=== PATIENT | male | born 1940 | race Caucasian/White ===

== ENCOUNTER 2016-06-21 08:13 | Day surgery (SDC) | payer MEDICARE, BC ==
[~2016-06-21 08:13] MED LIST: DEXAMETHASONE SOD PHOSPHATE 10 MG/ML 1 ML VIAL IV ONE; HEPARIN SODIUM,PORCINE 5,000 UNIT/ML 1 ML VIAL SQ ONE; HYDROmorphone 1 MG/ML 1 ML SYRINGE IVP PRN; LACTATED RINGERS 1,000 ML IV SCH; LIDOCAINE 1% 20 ML VIAL (10MG/ML) FOR IV START INTRADERMA PRN; ceFAZolin 2 GM in SODIUM CHLORIDE 0.9% 100 ML IVPB ONE
[2016-06-21 09:05] VITALS: RESP 16; TEMP 96.9
[2016-06-21 09:27] LABS: Glucose,Whole Blood 125 mg/dL (75-99)
[2016-06-21] MEDS ORDERED: ONDANSETRON 4 MG/2 ML VIAL IVP ONE (09:28)
--- NOTE | 2016-06-21 09:37 | P.GSHP ---
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 She requires a Port-A-Cath because of poor IV access and ongoing chemotherapy. He has not had a previous Port-A-Cath before. Past Medical History Past Medical History: Cancer, Diabetes Mellitus, Hyperlipidemia, Hypertension Additional Past Medical History / Comment(s): DIAGNOSED WITH CA OF BASE OF TONGUE IN 2013, RECENT PET SCAN SHOWS CA IN LIVER. PROSTATE CA IN 2006. History of Any Multi-Drug Resistant Organisms: None Reported Past Surgical History: Orthopedic Surgery Additional Past Surgical History / Comment(s): LEFT ROTATOR CUFF. Past Anesthesia/Blood Transfusion Reactions: No Reported Reaction Past Psychological History: No Psychological Hx Reported Smoking Status: Former smoker Past Alcohol Use History: Daily Additional Past Alcohol Use History / Comment(s): QUIT SMOKING IN 2005, FOR 50 YRS, 1-2PPD. Past Drug Use History: None Reported - Past Family History Mother Family Medical History: Cancer Medications and Allergies Home Medications Medication Instructions Recorded Confirmed Type Lisinopril [Zestril] 20 mg PO QAM 12/01/13 06/21/16 History Tamsulosin [Flomax] 0.4 mg PO HS 12/01/13 06/21/16 History metFORMIN HCL 1,000 mg PO BID 12/01/13 06/21/16 History Melatonin 10 mg PO HS PRN 06/20/16 06/21/16 History Allergies Allergy/AdvReac Type Severity Reaction Status Date / Time No Known Allergies Allergy Verified 06/20/16 08:32 Surgical - Exam Vital Signs Temp Pulse Resp BP Pulse Ox 96.9 F L 73 16 184/80 99 06/21/16 09:04 06/21/16 09:04 06/21/16 09:04 06/21/16 09:04 06/21/16 09:04 Physical exam: General: Well-developed, well-nourished HEENT: Normocephalic, sclerae nonicteric Abdomen: Nontender, nondistended Extremities: No edema Neuro: Alert and oriented Results - Labs Abnormal Lab Results - Last 24 Hours (Table) 06/21/16 Range/Units 09:09 POC Glucose (mg/dL) 125 H (75-99) mg/dL Assessment and Plan (1) Tongue cancer Narrative/Plan: We'll proceed with Port-A-Cath placement at this time. Risks of bleeding, infection, pneumothorax, DVT, catheter malfunction were discussed. He understands and wishes to proceed. Status: Acute
[2016-06-21] MEDS ORDERED: PROPOFOL 10 MG/ML 20 ML VIAL IV ONE (10:07)
[2016-06-21] MEDS ORDERED: fentaNYL (PF) 50 MCG/ML 2 ML AMP ONE (10:07)
[2016-06-21] MEDS ORDERED: MIDAZOLAM 2 MG/2 ML VIAL ONE (10:07)
[2016-06-21] MEDS ORDERED: HEPARIN SODIUM,PORCINE 100 UNIT/ML 5 ML VIAL IV ONE ×2 (10:30)
[2016-06-21] MEDS ORDERED: LIDOCAINE (PF) 10 MG/ML 2 ML VIAL SQ ONE ×2 (10:32)
[2016-06-21] MEDS ORDERED: NALOXONE 0.4 MG/ML 1 ML VIAL IV PRN (10:58)
[2016-06-21] MEDS ORDERED: HYDROcodone/APAP 5-325MG 1 EACH TAB PO PRN (10:58)
--- NOTE | 2016-06-21 10:58 | P.PCN ---
Date of Procedure: 06/21/16 Procedure(s) Performed: PREOPERATIVE DIAGNOSIS: Tongue cancer POSTOPERATIVE DIAGNOSIS: Same PROCEDURE: Port-A-Cath placement SURGEON: Tabatha EBL: Minimal ANESTHESIA: Sedation COMPLICATIONS: None OPERATIVE PROCEDURE: Patient was brought and placed on the operative table in the supine position. The patient was sedated per anesthesia that time. The chest and neck were prepped and draped in usual sterile fashion. The ultrasound probe was used to identify the location of the right internal jugular vein. The skin was localized with lidocaine. The Seldinger needle was advanced into the IJ under ultrasound guidance. The wire was advanced through the needle under fluoroscopic guidance into the superior vena cava. A port pocket was created in the right infraclavicular location. The catheter was tunneled from the wire entrance site to the port pocket. The port was then connected to the catheter. The dilator introducer was threaded over the guidewire. The guidewire and dilator were then removed. The catheter was advanced through the introducer and introducer was then removed. The tip was seen to be in the right atrial junction. Port was flushed with both saline and a Hep-Lock solution. There was good flow both in and out of the port. The port was sutured in underlying tissues using 3-0 Vicryl sutures. The subcutaneous tissues were reapproximated using 3-0 Vicryl sutures and the skin at both locations using 4-0 Monocryl sutures. Steri-Strips and sterile dressings then applied. DISPOSITION: Stable to recovery room
[2016-06-21 11:23] VITALS: BP 179/82; PULSE 60
--- NOTE | 2016-06-21 11:29 | XR ---
EXAMINATION TYPE: XR chest 1V confirm line [facility] DATE OF EXAM: 06/21/2016 11:20 AM COMPARISON: Chest x-ray December 01, 2013 HISTORY: Port-A-Cath placement for throat cancer. TECHNIQUE: Single AP portable frontal upright view of the chest is obtained. FINDINGS: There is new right internal jugular Mediport catheter with tip in SVC. There is underlying emphysematous change felt present. Suspicious nodule lateral right upper lung is present correlates w ith recent PET/CT. No suspicious focal airspace opacity, pleural effusion, or pneumothorax is seen bi laterally. The cardiac silhouette size is within normal limits with atherosclerotic thoracic aorta. The osseous structures are intact. IMPRESSION: New right internal jugular Mediport catheter with tip in SVC. No evidence of complicatio n or pneumothorax after catheter placement.
--- NOTE | 2016-06-21 11:43 | FL ---
EXAMINATION TYPE: FL guided central line placemt DATE OF EXAM: 06/21/2016 11:26 AM COMPARISON: NONE HISTORY: Tongue cancer recurrence. TECHNIQUE: Fluoroscopy. FINDINGS: Fluoroscopic guidance was provided during Port-A-Cath insertion procedure performed by Dr. Mays. A total of 4 seconds of fluoroscopic time was utilized during the procedure and 1 spot intra operative image is acquired. Single image shows tip of catheter at level of SVC. IMPRESSION: As Above.
== END 2016-06-21 12:07 | disposition home or self-care (01) ==
LOC: OR 08:13
PROVIDERS: ATTEND Surgery
DX: Z45.2 Encounter for adjustment and management of vascular access device (principal); C01 Malignant neoplasm of base of tongue; I87.2 Venous insufficiency (chronic) (peripheral); Z92.21 Personal history of antineoplastic chemotherapy; E11.9 Type 2 diabetes mellitus without complications; E78.5 Hyperlipidemia, unspecified; I10 Essential (primary) hypertension; N40.0 Benign prostatic hyperplasia without lower urinary tract symptoms; Z85.46 Personal history of malignant neoplasm of prostate; Z79.84 Long term (current) use of oral hypoglycemic drugs; Z79.899 Other long term (current) drug therapy; Z87.891 Personal history of nicotine dependence
CPT/HCPCS: 77001; 36561; C1788; J2250; J2001; J1644; J1642; J1100; J0690; J2405; J3010; J2704; 99152; 99153

== ENCOUNTER 2016-07-17 05:57 | Inpatient (IN) | payer MEDICARE, BC ==
[2016-07-17] MEDS ORDERED: SODIUM CHLORIDE 0.9% 500 ML IV STA (06:00)
[2016-07-17] MEDS ORDERED: SODIUM CHLORIDE 0.9% 1,000 ML IV STA (06:00)
--- NOTE | 2016-07-17 06:01 | ED ---
General Adult HPI - General Source: RN notes reviewed, old records reviewed <Aniceto Tirado - Last Filed: 07/17/16 06:08> <Mona Winn - Last Filed: 07/17/16 09:15> - General Stated complaint: Syncope Time Seen by Provider: 07/17/16 06:00 - History of Present Illness Initial comments: This is a 76-year-old male to the emergency room, patient's pain by EMS for syncopal event patient patient had significant both for one the bathroom this morning. 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 At this time patient complains of mild diaphoresis and weakness. Patient has no chest pain no shortness of breath no headache no abdominal pain. Patient states he felt really weak when he went to the bathroom today, he got into the bathroom and felt so weak lightheaded and dizzy that he had this himself on the ground. Patient denies head trauma denies any other traumatic injury, denies any complaints of chest pain shortness of breath or headache prior to going to the ground, patient denies losing consciousness (Aniceto Tirado) - Related Data Home Medications Medication Instructions Recorded Confirmed Tamsulosin [Flomax] 0.4 mg PO HS 12/01/13 07/17/16 metFORMIN HCL 1,000 mg PO BID 12/01/13 07/17/16 Acetaminophen/Diphenhydramine 2 tab PO HS 07/17/16 07/17/16 [Tylenol PM 500-25mg] Ipratropium [place] 0.06%Nasal 1 spray EA NOSTRIL BID PRN 07/17/16 07/17/16 [Atrovent Nasal] Lisinopril-Hctz 20-25 mg 1 tab PO DAILY 07/17/16 07/17/16 [Zestoretic 20-25] Allergies Allergy/AdvReac Type Severity Reaction Status Date / Time No Known Allergies Allergy Verified 07/17/16 07:23 Review of Systems ROS Other: All systems not noted in ROS Statement are negative. <Aniceto Tirado - Last Filed: 07/17/16 06:08> ROS Other: All systems not noted in ROS Statement are negative. <Mona Winn - Last Filed: 07/17/16 09:15> ROS Statement: Those systems with pertinent positive or pertinent negative responses have been documented in the HPI. Past Medical History Past Medical History: Cancer, Diabetes Mellitus, Hyperlipidemia, Hypertension Additional Past Medical History / Comment(s): DIAGNOSED WITH CA OF BASE OF TONGUE IN 2013, RECENT PET SCAN SHOWS CA IN LIVER. PROSTATE CA IN 2006. History of Any Multi-Drug Resistant Organisms: None Reported Past Surgical History: Orthopedic Surgery Additional Past Surgical History / Comment(s): LEFT ROTATOR CUFF. Past Anesthesia/Blood Transfusion Reactions: No Reported Reaction Past Psychological History: No Psychological Hx Reported Smoking Status: Former smoker Past Alcohol Use History: Daily Additional Past Alcohol Use History / Comment(s): QUIT SMOKING IN 2005, FOR 50 YRS, 1-2PPD. Past Drug Use History: None Reported - Past Family History Mother Family Medical History: Cancer <Aniceto Tirado - Last Filed: 07/17/16 06:08> General Exam General appearance: alert, in no apparent distress Head exam: Present: atraumatic, normocephalic, normal inspection Eye exam: Present: normal appearance, PERRL, EOMI. Absent: scleral icterus, conjunctival injection, periorbital swelling ENT exam: Present: normal exam, mucous membranes moist Neck exam: Present: normal inspection. Absent: tenderness, meningismus, lymphadenopathy Respiratory exam: Present: normal lung sounds bilaterally. Absent: respiratory distress, wheezes, rales, rhonchi, stridor Cardiovascular Exam: Present: regular rate, normal rhythm, normal heart sounds. Absent: systolic murmur, diastolic murmur, rubs, gallop, clicks GI/Abdominal exam: Present: soft, normal bowel sounds. Absent: distended, tenderness, guarding, rebound, rigid Extremities exam: Present: normal inspection, full ROM, normal capillary refill. Absent: tenderness, pedal edema, joint swelling, calf tenderness Back exam: Present: normal inspection Neurological exam: Present: alert, oriented X3, CN II-XII intact Psychiatric exam: Present: normal affect, normal mood Skin exam: Present: warm, dry, intact, normal color. Absent: rash <Aniceto Tirado - Last Filed: 07/17/16 06:08> Course <Aniceto Tirado - Last Filed: 07/17/16 06:08> <Mona Winn - Last Filed: 02/13/17 09:15> Vital Signs 07/17/16 07/17/16 07/17/16 06:02 07:54 08:52 Temperature 96.8 F L 98.1 F Pulse Rate 102 H 95 100 Pulse Rate [ Sitting] Pulse Rate [ Standing] Pulse Rate [ Supine] Respiratory 18 18 18 Rate Blood Pressure 174/72 156/72 163/74 Blood Pressure [Sitting] Blood Pressure [Standing] Blood Pressure [Supine] O2 Sat by Pulse 99 97 99 Oximetry 07/17/16 09:10 Temperature Pulse Rate Pulse Rate [ 106 H Sitting] Pulse Rate [ 119 H Standing] Pulse Rate [ 100 Supine] Respiratory Rate Blood Pressure Blood Pressure 176/77 [Sitting] Blood Pressure 132/51 [Standing] Blood Pressure 166/74 [Supine] O2 Sat by Pulse Oximetry Patient was reassessed at 813 9 AM, his hemoglobin is stable d-dimer is elevated 0.87 sodium is on the low side troponin is negative head CT is normal in size his chest x-ray that considering his elevated d-dimer (proceed with the CT chest angiogram and a sodium being low and he is also status post chemo but cannot do orthostatics he will get some more hydration and to be an safe side and very quiet and get him admitted under Dr. Florian Barnard be a consult ( Mona Winn) EKG Findings - EKG Comments: EKG Findings:: EKG shows sinus tachycardia rate 101, pO2 18, QRS widening, QTC 459, it is appear to be a left bundle morphology <Aniceto Tirado - Last Filed: 07/17/16 06:08> Medical Decision Making - Lab Data Result diagrams: 07/17/16 06:20 07/17/16 06:20 <Mona Winn - Last Filed: 07/17/16 09:15> - Lab Data Lab Results 07/17/16 07/17/16 07/17/16 Range/Units 06:20 06:20 06:20 WBC 5.5 (3.8-10.6) k/uL RBC 2.94 L (4.30-5.90) m/uL Hgb 10.0 L (13.0-17.5) gm/dL Hct 28.0 L (39.0-53.0) % MCV 95.0 D (80.0-100.0) fL MCH 34.0 (25.0-35.0) pg MCHC 35.8 (31.0-37.0) g/dL RDW 12.3 (11.5-15.5) % Plt Count 158 (150-450) k/uL Neutrophils % 90 % Lymphocytes % 4 % Monocytes % 4 % Eosinophils % 1 % Basophils % 0 % Neutrophils # 5.0 (1.3-7.7) k/uL Lymphocytes # 0.2 L (1.0-4.8) k/uL Monocytes # 0.2 (0-1.0) k/uL Eosinophils # 0.1 (0-0.7) k/uL Basophils # 0.0 (0-0.2) k/uL PT (9.0-12.0) sec INR (<1.1) APTT (22.0-30.0) sec D-Dimer (<0.60) mg/L FEU Sodium 122 L (137-145) mmol/L Potassium 4.7 (3.5-5.1) mmol/L Chloride 88 L (98-107) mmol/L Carbon Dioxide 23 (22-30) mmol/L Anion Gap 11 mmol/L BUN 21 H (9-20) mg/dL Creatinine 1.20 (0.66-1.25) mg/dL Est GFR (MDRD) Af Amer >60 (>60 ml/min/1.73 sqM) Est GFR (MDRD) Non-Af 59 (>60 ml/min/1.73 sqM) Glucose 196 H (74-99) mg/dL Plasma Lactic Acid Calvin (0.7-2.0) mmol/L Calcium 9.3 (8.4-10.2) mg/dL Phosphorus 3.7 (2.5-4.5) mg/dL Magnesium 1.4 L (1.6-2.3) mg/dL Total Bilirubin 0.8 (0.2-1.3) mg/dL AST 24 (17-59) U/L ALT 31 (21-72) U/L Alkaline Phosphatase 66 (38-126) U/L Total Creatine Kinase 60 (55-170) U/L CK-MB (CK-2) 1.7 (0.0-2.4) ng/mL CK-MB (CK-2) Rel Index 2.8 Troponin I <0.012 (0.000-0.034) ng/mL Total Protein 6.3 (6.3-8.2) g/dL Albumin 3.9 (3.5-5.0) g/dL Urine Color Urine Appearance (Clear) Urine pH (5.0-8.0) Ur Specific [place] (1.001-1.035) Urine Protein (Negative) Urine Glucose (UA) (Negative) Urine Ketones (Negative) Urine Blood (Negative) Urine Nitrate (Negative) Urine Bilirubin (Negative) Urine Urobilinogen (<2.0) mg/dL Ur Leukocyte Esterase (Negative) 07/17/16 07/17/16 07/17/16 Range/Units 06:20 06:20 07:40 WBC (3.8-10.6) k/uL RBC (4.30-5.90) m/uL Hgb (13.0-17.5) gm/dL Hct (39.0-53.0) % MCV (80.0-100.0) fL MCH (25.0-35.0) pg MCHC (31.0-37.0) g/dL RDW (11.5-15.5) % Plt Count (150-450) k/uL Neutrophils % % Lymphocytes % % Monocytes % % Eosinophils % % Basophils % % Neutrophils # (1.3-7.7) k/uL Lymphocytes # (1.0-4.8) k/uL Monocytes # (0-1.0) k/uL Eosinophils # (0-0.7) k/uL Basophils # (0-0.2) k/uL PT 9.6 (9.0-12.0) sec INR 0.9 (<1.1) APTT 22.3 (22.0-30.0) sec D-Dimer 0.87 H (<0.60) mg/L FEU Sodium (137-145) mmol/L Potassium (3.5-5.1) mmol/L Chloride (98-107) mmol/L Carbon Dioxide (22-30) mmol/L Anion Gap mmol/L BUN (9-20) mg/dL Creatinine (0.66-1.25) mg/dL Est GFR (MDRD) Af Amer (>60 ml/min/1.73 sqM) Est GFR (MDRD) Non-Af (>60 ml/min/1.73 sqM) Glucose (74-99) mg/dL Plasma Lactic Acid [place] 1.3 (0.7-2.0) mmol/L Calcium (8.4-10.2) mg/dL Phosphorus (2.5-4.5) mg/dL Magnesium (1.6-2.3) mg/dL Total Bilirubin (0.2-1.3) mg/dL AST (17-59) U/L ALT (21-72) U/L Alkaline Phosphatase (38-126) U/L Total Creatine Kinase (55-170) U/L CK-MB (CK-2) (0.0-2.4) ng/mL CK-MB (CK-2) Rel Index Troponin I (0.000-0.034) ng/mL Total Protein (6.3-8.2) g/dL Albumin (3.5-5.0) g/dL Urine Color Light Yellow Urine Appearance Clear (Clear) Urine pH 7.0 (5.0-8.0) Ur Specific [place] 1.006 (1.001-1.035) Urine Protein Trace H (Negative) Urine Glucose (UA) Trace H (Negative) Urine Ketones Negative (Negative) Urine Blood Negative (Negative) Urine Nitrate Negative (Negative) Urine Bilirubin Negative (Negative) Urine Urobilinogen <2.0 (<2.0) mg/dL Ur Leukocyte Esterase Negative (Negative) Disposition <Aniceto Tirado - Last Filed: 07/17/16 06:08> <Mona Winn - Last Filed: 07/17/16 09:15> Clinical Impression: Syncope, Orthostatic hypotension, Hyponatremia Disposition: ADMITTED IP TO THIS HOSP Condition: Good
--- NOTE | 2016-07-17 06:51 | XR ---
EXAMINATION TYPE: XR chest 2V DATE OF EXAM: 07/17/2016 6:46 AM COMPARISON: NONE HISTORY: Disoriented. Lung cancer. TECHNIQUE: Frontal and lateral views of the chest are obtained. FINDINGS: There is no heart failure nor confluent pneumonic infiltrate. There are no hilar masses. C ostophrenic angles are clear. There is a right central venous catheter with tip in the superior vena cava. IMPRESSION: No active cardiopulmonary disease.
[2016-07-17 06:52] LABS: ALT 31 U/L (21-72); AST 24 U/L (17-59); Alkaline Phosphatase 66 U/L (38-126); Anion Gap 11 mmol/L; Blood Urea Nitrogen 21 mg/dL (9-20); Calcium 9.3 mg/dL (8.4-10.2); Carbon Dioxide 23 mmol/L (22-30); Chloride 88 mmol/L (98-107); Glucose 196 mg/dL (74-99); Magnesium 1.4 mg/dL (1.6-2.3); Non-African American GFR(MDRD) 59 (>60 ml/min/1.73 sqM); Phosphorous 3.7 mg/dL (2.5-4.5); Potassium 4.7 mmol/L (3.5-5.1); Sodium 122 mmol/L (137-145); Total Bilirubin 0.8 mg/dL (0.2-1.3); Total Protein 6.3 g/dL (6.3-8.2)
[2016-07-17 06:59] LABS: Basophils % (A) 0 %; CHCM 36.9; Eosinophils # (A) 0.1 k/uL (0-0.7); Eosinophils % (A) 1 %; HDW 3.02; Luc # (Auto) 0.06; Luc % (Auto) 1; Lymphocytes # (A) 0.2 k/uL (1.0-4.8); Lymphocytes % (A) 4 %; MCHC 35.8 g/dL (31.0-37.0); Mean Platelet Volume 6.9; Monocytes # (A) 0.2 k/uL (0-1.0); Monocytes % (A) 4 %; Neutrophils % (A) 90 %; RBC 2.94 m/uL (4.30-5.90); RDW 12.3 % (11.5-15.5); WBC 5.5 k/uL (3.8-10.6); WBC (Perox) 5.62
[2016-07-17 07:00] LABS: INR 0.9 (<1.1); Partial Thromboplastin Time 22.3 sec (22.0-30.0); Prothrombin Time 9.6 sec (9.0-12.0)
[2016-07-17 07:09] LABS: Creatine Kinase 60 U/L (55-170)
[2016-07-17 07:22] LABS: Creatine Kinase MB 1.7 ng/mL (0.0-2.4); Troponin I <0.012 ng/mL (0.000-0.034)
--- NOTE | 2016-07-17 07:50 | CT ---
EXAMINATION TYPE: CT brain wo con DATE OF EXAM: 07/17/2016 7:40 AM COMPARISON: NONE HISTORY: Syncope CT DLP: 1083.2 mGycm Automated exposure control for dose reduction was used. FINDINGS: There are generalized changes of sulcal prominence and ventriculomegaly, compatible with patchy. Ther e is diffuse periventricular white matter lucency, compatible with chronic ischemic change. There is no acute focal lesion, mass effect or midline shift identified. I do not see evidence of intracranial blood. There is mild mucoperiosteal thickening involving the ethmoid sinuses bilaterally. No depressed skull fracture is seen. IMPRESSION: 1. NO ACUTE INTRACRANIAL LESION. 2. ATROPHIC CHANGE. 3. CHRONIC WHITE MATTER ISCHEMIC CHANGE. 4. MILD, CHRONIC ETHMOIDAL SINUS MUCOSAL DISEASE.
[2016-07-17 07:53] LABS: Appearance,Urine Clear (Clear); Bilirubin,Urine Negative (Negative); Glucose,Urine (UA) Trace (Negative); Ketones,Urine Negative (Negative); Leukocyte Esterase,Urine Negative (Negative); Nitrite,Urine Negative (Negative); Protein,Urine Trace (Negative); Specific Gravity,Urine 1.006 (1.001-1.035); UA Billing (MACRO vs. MICRO) CHEM; Urobilinogen,Urine <2.0 mg/dL (<2.0)
[2016-07-17] MEDS ORDERED: RX INFO: IV CONTRAST WAS GIVEN 1 EACH MISC MISCELLANE PRN (08:50)
[2016-07-17] MEDS ORDERED: NALOXONE 0.4 MG/ML 1 ML VIAL IV PRN (09:16)
[2016-07-17] MEDS ORDERED: IPRATROPIUM BROMIDE 0.06% NASAL SPRAY (15 ML) EA NOSTRIL PRN (09:25)
--- NOTE | 2016-07-17 10:08 | CT ---
EXAMINATION TYPE: CT angio chest DATE OF EXAM: 07/17/2016 9:52 AM COMPARISON: NONE HISTORY: PE, Syncope CT DLP: 411.40 mGycm Automated exposure control for dose reduction was used. CONTRAST: CTA scan of the thorax is performed with IV Contrast, patient injected with 80 ml mL of Visipaque 320 , pulmonary embolism protocol. . FINDINGS: There is a 2.9 mm subpleural nodule in the anterior segment of the right upper lobe, best seen on chelo ge 40. This calcified granuloma also in the right upper lobe there is a 6.9 mm groundglass nodule not ed in the right upper lobe best seen in image 60. No other definite parenchymal lesions are seen. There is no significant axillary adenopathy. There are calcified mediastinal and hilar lymph nodes. T here is no pleural or pericardial fluid. There is no evidence of pulmonary embolus. Through the aorta is mildly prominent measuring 3.86 cm. The proximal arch is aneurysmal measuring 3. 3 cm. The proximal descending thoracic aorta measures 3.2 cm. At the level of the aortic hiatus, the aorta is normal in caliber measuring 2.9 cm. There is an ill-defined, 3 cm low attenuating lesion in the posterior segment of the right lobe of th e liver. There is old granulomatous disease within the spleen. The remainder the upper abdomen is unr emarkable. There is hypertrophic spondylosis within the dorsal spine. No bony destructive lesion is seen. IMPRESSION: 1. THIS EXAMINATION IS NEGATIVE FOR PULMONARY EMBOLUS. 2. ASCENDING THORACIC AORTIC ANEURYSM. 3. ILL-DEFINED, 3 CM LESION WITHIN THE POSTERIOR SEGMENT OF THE RIGHT LOBE OF THE LIVER. MALIGNANCY W OULD NEED TO BE EXCLUDED. 4. MULTIPLE PULMONARY NODULES.
[2016-07-17] MEDS: SODIUM CHLORIDE 0.9% 1,000 ML IV SCH ×2 (11:00→17:09)
[2016-07-17] MEDS ORDERED: ALBUTEROL NEBULIZED 2.5 MG/3 ML INHALATION PRN (11:28)
[2016-07-17 12:26] LABS: Glucose,Whole Blood 161 mg/dL (75-99)
[2016-07-17] MEDS: MAGNESIUM SULFATE-D5W PMX 1 GM in DEXTROSE/WATER 1 100ML.BAG IVPB SCH ×2 (12:42→14:12)
--- NOTE | 2016-07-17 13:58 | HP ---
DATE OF ADMISSION: Patient is a 76-year-old gentleman who came in after an episode of disorientation and syncopal episode, while he was in the bathroom trying to move his bowel and patient was complaining of cough and ( ) like symptoms that started today morning. Patient denied any fever, chills. Patient denied any significant sputum production. Patient denied any dysuria, nausea, vomiting. Patient's CT angio of the chest did not show any pulmonary embolism or any pneumonic process and patient had CT that showed some chronic microvascular changes. Patient is found to be severely hyponatremic and renal dysfunction. I do not have his baseline creatinine. Patient was diagnosed with lung cancer and patient appears to have been receiving radiation therapy as well as chemotherapy and patient had a metastatic disease to the liver as well. Patient follows with Dr. Barnard as an outpatient who was consulted as well. Patient denied any chest pain, patient any significant diaphoresis. Patient is complaining of weakness and patient denied any other flulike symptoms like body aches. Patient is found to have positive orthostatic vitals. Patient probably has significant intravascular volume depletion. REVIEW OF SYSTEMS: GENERAL: As described in HPI. HEENT: As described in HPI. CARDIOVASCULAR: As described in HPI. PULMONARY: No shortness of breath, no cough, no hemoptysis. GASTROINTESTINAL: No diarrhea, no nausea, no vomiting, no abdominal pain. Normoactive bowel sounds. NEUROLOGICAL: No headaches, no weakness, no numbness. HEMATOLOGICAL: Denies any bleeding or petechiae. GENITOURINARY: Denies any burning micturition, frequency, or urgency. MUSCULOSKELETAL/RHEUMATOLOGICAL: Denies any joint pain, swelling, or any muscle pain. ENDOCRINE: Denies any polyuria or polydipsia. The rest of the 14 point review of systems is negative. Patient denied any chest pain, palpitations or orthopnea, PND. Patient's home medications include: 1. Tamsulosin. 2. Metformin. 3. Acetaminophen. 4. Hydrocodone. 5. Ipratropium. 6. Lisinopril hydrochlorothiazide. ALLERGIES: No known drug allergies. PAST MEDICAL HISTORY: Significant for cancer of the base of the tongue and recently diagnosed lung cancer with metastases disease to the liver, prostate cancer in 2006, diabetes mellitus, hyperlipidemia, hypertension. SOCIAL HISTORY: Former smoker. Quit smoking in 2005, denied any alcohol abuse or any drug abuse and 1 to 2 packs per day in the past. FAMILY HISTORY: Mother had cancer, unknown primary. PHYSICAL EXAMINATION: Temperature 96.4, pulse of 100, respiratory rate of 16, blood pressure 135/78, saturating at 95% on 2 L of O2 by nasal cannula. GENERAL: The patient is alert and oriented x3, not in any acute distress. Well developed, well nourished. HEENT: Pupils are round and equally reacting to light. EOMI. No scleral icterus. No conjunctival pallor. Normocephalic, atraumatic. No pharyngeal erythema. No thyromegaly. CARDIOVASCULAR: S1 and S2 present. No murmurs, rubs, or gallops. PULMONARY: Chest is clear to auscultation, no wheezing or crackles. ABDOMEN: Soft, nontender, nondistended, normoactive bowel sounds. No palpable organomegaly. MUSCULOSKELETAL: No joint swelling or deformity. EXTREMITIES: No cyanosis, clubbing, or pedal edema. NEUROLOGICAL: Gross neurological examination did not reveal any focal deficits. SKIN: No rashes. LABORATORY DATA: CBC, CMP are abnormal for mildly low sodium of 122, d-dimer of 0.87. CT angiogram of the chest is negative for any pulmonary embolism although did show the lesions that are consistent with lung cancer. Trace urinary protein. ASSESSMENT AND PLAN: 1. Syncopal episode. I believe it is secondary to intravascular volume depletion. Patient's IV fluids will be increased to 125 mL/h and will repeat electrolytes tomorrow and kidney function tomorrow. 2. Acute renal failure secondary to intravascular volume depletion and prerenal azotemia from intravascular depletion. Patient will be hydrated and patient's hydrochlorothiazide and lisinopril will be discontinued and patient has positive orthostatic vitals and I also obtain an echocardiogram. 3. Lung cancer. Will continue his treatment for lung cancer as per oncology. 4. Hyponatremia. Appears to be hypovolemic hyponatremia. Patient will be continued on IV fluids. I cannot rule out SAIDH, a component of SIADH as well, which may have caused his disorientation. Because of that reason, I will go ahead and get urine osmolality, serum osmolality, urine random creatinine and urine random sodium. 5. Hypomagnesemia, magnesium will be supplemented. 6. Diabetes mellitus, will use sliding scale insulin and hold off on metformin, benign prostatic atrophy. Continue with Flomax, multiple other cancers in the past which are remission at this point of time. 7. Tachycardia secondary to intravascular volume depletion, expected to improve with IV fluids. Will also obtain a TSH level on him.
[2016-07-17 16:54] LABS: Glucose,Whole Blood 179 mg/dL (75-99)
[2016-07-17] MEDS ORDERED: metFORMIN 500 MG TAB PO SCH (17:30)
[2016-07-17 19:04] LABS: Creatinine,Urine Random 39.7 mg/dL
[2016-07-17 20:40] LABS: Glucose,Whole Blood 163 mg/dL (75-99)
[2016-07-17 21:09] LABS: Hemoglobin A1C 6.1 % (4.2-6.1)
[2016-07-17] MEDS: TAMSULOSIN 0.4 MG CAP.ER.24H PO SCH (21:59)
[2016-07-17] MEDS: OSELTAMIVIR 75 MG CAP PO SCH (21:59)
[2016-07-18] MEDS: ACETAMINOPHEN TAB 325 MG TAB PO PRN ×2 (02:34→08:42)
[2016-07-18] MEDS: SODIUM CHLORIDE 0.9% 1,000 ML IV SCH ×3 (02:38→17:50)
[2016-07-18 07:26] LABS: Glucose,Whole Blood 150 mg/dL (75-99)
[2016-07-18] MEDS ORDERED: LISINOPRIL-HCTZ 20-25 MG 1 EACH TAB PO SCH (09:00)
[2016-07-18] MEDS: OSELTAMIVIR 75 MG CAP PO SCH ×2 (09:15→22:12)
[2016-07-18 10:01] LABS: Basophils % (A) 0 %; CH 34.8; CHCM 36.1; Eosinophils % (A) 1 %; HCT 24.7 % (39.0-53.0); HDW 2.98; HGB 8.6 gm/dL (13.0-17.5); Luc # (Auto) 0.05; Luc % (Auto) 1; Lymphocytes # (A) 0.3 k/uL (1.0-4.8); Lymphocytes % (A) 9 %; MCH 33.8 pg (25.0-35.0); MCV 96.8 fL (80.0-100.0); Mean Platelet Volume 7.3; Monocytes # (A) 0.1 k/uL (0-1.0); Monocytes % (A) 4 %; Neutrophils % (A) 84 %; RBC 2.55 m/uL (4.30-5.90); RDW 12.4 % (11.5-15.5); WBC 3.6 k/uL (3.8-10.6); WBC (Perox) 3.73
--- NOTE | 2016-07-18 10:12 | ECHOF ---
Referral Reason:syncope MEASUREMENTS -------- HEIGHT: 180.3 cm WEIGHT: 97.1 kg BP: 175/79 IVSd: 0.9 cm (0.6 - 1.1) LVIDd: 4.2 cm (3.9 - 5.3) LVPWd: 1.3 cm (0.6 - 1.1) IVSs: 1.8 cm LVIDs: 2.9 cm LVPWs: 1.5 cm Ao Diam: 3.2 cm (2.0 - 3.7) AV Cusp: 2.0 cm (1.5 - 2.6) LA Diam: 3.5 cm (2.7 - 3.8) MV EXCURSION: 15.965 mm (> 18.000) MV EF SLOPE: 70 mm/s (70 - 150) EPSS: 0.3 cm MV E Newton: 1.01 m/s MV DecT: 112 ms MV A Newton: 1.28 m/s MV E/A Ratio: 0.79 RAP: 5.00 mmHg RVSP: 13.49 mmHg FINDINGS -------- Resting tachycardia (HR>100bpm). This was a technically difficult study with suboptimal views. There is borderline concentric left ventricular hypertrophy. Overall left ventricular systolic function is normal with, an EF between 60 - 65 %. The RV was not well visualized. The left atrium is normal in size. The right atrium was not well visualized. The aortic valve was not well visualized. Mild mitral regurgitation is present. Mild tricuspid regurgitation present. The right ventricular systolic pressure, as measured by Doppler, is 13.49mmHg. Pulmonic valve appears structurally normal. There is a small, generalized pericardial effusion present. CONCLUSIONS -------- 1. Resting tachycardia (HR>100bpm). 2. Mild tricuspid regurgitation present. 3. The right ventricular systolic pressure, as measured by Doppler, is 13.49mmHg. 4. Pulmonic valve appears structurally normal. 5. There is a small, generalized pericardial effusion present. 6. This was a technically difficult study with suboptimal views. 7. There is borderline concentric left ventricular hypertrophy. 8. Overall left ventricular systolic function is normal with, an EF between 60 - 65 %. 9. The RV was not well visualized. 10. The left atrium is normal in size. 11. The right atrium was not well visualized. 12. The aortic valve was not well visualized. 13. Mild mitral regurgitation is present. CLIENT RELATIONS REPRESENTATIVE: Libia Saucedo RDCS
[2016-07-18 10:30] LABS: Anion Gap 9 mmol/L; Blood Urea Nitrogen 16 mg/dL (9-20); Calcium 8.7 mg/dL (8.4-10.2); Carbon Dioxide 23 mmol/L (22-30); Chloride 93 mmol/L (98-107); Glucose 141 mg/dL (74-99); Non-African American GFR(MDRD) >60 (>60 ml/min/1.73 sqM); Potassium 4.3 mmol/L (3.5-5.1); Sodium 125 mmol/L (137-145)
[2016-07-18 12:11] LABS: Glucose,Whole Blood 140 mg/dL (75-99)
[2016-07-18] MEDS: INSULIN LISPRO (humaLOG) 300 UNIT/3 ML VIAL SQ SCH ×3 (13:15→22:13)
--- NOTE | 2016-07-18 14:38 | P.PN ---
Subjective Date of service 07/18/2016. Progress Note being dictated for Dr. Randall. Interval history: This a 76-year-old gentleman admitted with near syncope, dehydration, influenza A, hyponatremia with possible mild small component of SIADH and multiple other medical issues. Maintained on IV fluid hydration at 125 MLS per hour and Tamiflu. BRITTANY inhibitor and HCTZ were discontinued .Sodium mildly improved ,up to 125. No seizure activity reported. Renal function improving. Orthostatic hypotensive. Tachycardia improving. Echo, suboptimal, normal LV function, EF 60-65%. Afebrile, T-max 100.5, WBC 3.6. Preliminary urine culture negative at 18 hours. Urine osmolality 344, urine random creatinine 39.7, urine random sodium 67. Magnesium 1.6. Hemoglobin 8.6, platelets 111, neutrophils 84. O2 sat on room air worsening, 92%, initially 99 % on room air on admission. Denies lightheadedness, dizziness or focal deficits. Denies chest pain, palpitations or increasing shortness of breath. Objective - Vital Signs Vital signs: Vital Signs Temp 99.1 F 07/18/16 07:00 Pulse 108 H 07/18/16 13:31 Resp 24 07/18/16 13:31 BP 156/69 07/18/16 13:31 Pulse Ox 92 L 07/18/16 13:31 Intake & Output 07/17/16 07/18/16 07/18/16 18:59 06:59 18:59 Intake Total 1950 460 Output Total 525 900 Balance 1425 -440 Intake: IV 450 Magnesium Sulfate-D5w Pmx 200 1 gm In Dextrose/Water 1 100ml.bag @ 100 mls/hr IVPB Q1H LITTLE Rx#: [id number] Sodium Chloride 0.9% 1, 250 000 ml @ 125 mls/hr IV . Q8H LITTLE Rx#:[id number] Amount of Fluid Infused ( 1500 ml) Oral 460 Output: Urine 525 900 Other: Voiding Method Toilet Urinal # Voids 1 3 - Exam PHYSICAL EXAM: VITAL SIGNS: As above GENERAL: [Lying in bed, tired appearing] HEENT: [Pupils equal conjunctiva normal.] NECK: [Supple, no JVD] RESPIRATORY EFFORT:[Normal] LUNGS: [Essentially clear, bilateral bases diminished, no wheezing, no crackles , no rhonchi] CARDIOVASCULAR[regular S1 and S2, no edema] GI: [Abdomen soft, nontender, positive bowel sounds.] PSYCH: [Alert and oriented -3, mood and affect normal. NEURO: No focal deficits, generalized weakness, moves all 4 extremities, strength and sensation grossly intact. - Labs CBC & Chem 7: 07/18/16 09:34 07/18/16 09:34 Labs: Abnormal Lab Results - Last 24 Hours (Table) 07/17/16 07/17/16 07/17/16 Range/Units 16:53 17:10 20:38 WBC (3.8-10.6) k/uL RBC (4.30-5.90) m/uL Hgb (13.0-17.5) gm/dL Hct (39.0-53.0) % Plt Count (150-450) k/uL Lymphocytes # (1.0-4.8) k/uL Sodium (137-145) mmol/L Chloride (98-107) mmol/L Glucose (74-99) mg/dL POC Glucose (mg/dL) 179 H 163 H (75-99) mg/dL Influenza Type A RNA Detected A (Not Detectd) 07/18/16 07/18/16 07/18/16 Range/Units 07:25 09:34 09:34 WBC 3.6 L (3.8-10.6) k/uL RBC 2.55 L (4.30-5.90) m/uL Hgb 8.6 L (13.0-17.5) gm/dL Hct 24.7 L (39.0-53.0) % Plt Count 111 L (150-450) k/uL Lymphocytes # 0.3 L (1.0-4.8) k/uL Sodium 125 L (137-145) mmol/L Chloride 93 L (98-107) mmol/L Glucose 141 H (74-99) mg/dL POC Glucose (mg/dL) 150 H (75-99) mg/dL Influenza Type A RNA (Not Detectd) 07/18/16 Range/Units 12:09 WBC (3.8-10.6) k/uL RBC (4.30-5.90) m/uL Hgb (13.0-17.5) gm/dL Hct (39.0-53.0) % Plt Count (150-450) k/uL Lymphocytes # (1.0-4.8) k/uL Sodium (137-145) mmol/L Chloride (98-107) mmol/L Glucose (74-99) mg/dL POC Glucose (mg/dL) 140 H (75-99) mg/dL Influenza Type A RNA (Not Detectd) Assessment and Plan Plan: 1. [Syncopal episode attributed to dehydration, acute renal failure]. 2. Hypovolemic hyponatremia with possible mild component of SIADH. 3. [Acute renal failure, prerenal azotemia secondary to intravascular volume depletion, ]. 4. [Orthostatic hypotension secondary to intravascular volume depletion]. 5. Influenza A 6. [Lung cancer with metastasis to liver, currently receiving chemotherapy and radiation outpatient]. 7. [Hypomagnesemia]. 8. [Diabetes mellitus]. 9. [Tachycardia secondary to dehydration]. 10. Anemia, possibly dilutional secondary to fluid resuscitation 11. Thrombocytopenia, 12. Acute hypoxic respiratory failure, follow-up chest x-ray oedered. Plan: Continue on current medication regime , Tamiflu ,monitoring and symptomatic treatment. IV Magnesium supplements ordered. Repeat magnesium level at 1800. Maintain IV fluid hydration. Nephrology consult initiated regarding hyponatremia, possible SIADH. PT/OT. Humalog insulin sliding scale initiated. Close monitoring of electrolytes, renal function, hemoglobin, platelets with repeat labs ordered for a.m. Increase ambulation with assistance. prognosis guarded given multiple complex medical issues. The impression and plan of care has been dictated as directed. : I performed a H&P examination of this patient and discussed the same with the dictator. I agree with the dictator's note. Any additional findings/opinions/ etc. will be noted.
--- NOTE | 2016-07-18 15:09 | XR ---
EXAMINATION TYPE: XR chest 2V DATE OF EXAM: 07/18/2016 3:04 PM COMPARISON: Chest x-ray and CTA chest from yesterday. HISTORY: Hypoxia, history of lung cancer. TECHNIQUE: Frontal and lateral views of the chest are obtained. FINDINGS: Underlying emphysematous changes redemonstrated. There is stable right internal jugular Med iport catheter. There is no focal air space opacity, pleural effusion, or pneumothorax seen. The car diac silhouette size is within normal limits. Atherosclerotic thoracic aorta is redemonstrated. The osseous structures are intact. IMPRESSION: Chronic emphysematous change without acute pulmonary process.
[2016-07-18] MEDS ORDERED: BENZOCAINE/MENTHOL LOZENG 1 EACH LOZENGE MUCOUS MEM PRN (15:19)
--- NOTE | 2016-07-18 15:41 | CDI ---
In responding to this query, please exercise your independent professional judgment. The [facility] Coding Staff and Clinical Documentation Specialists appreciate your assistance in clarifying documentation, maintaining compliance with coding guidelines, accurately documenting patients condition and capturing severity of illness. The fact that a question is asked does not imply that any particular answer is desired or expected. Communication forms are a method of clarifying documentation and are not made part of the Legal Health Record. Thank you in advance for your clarification. Last Revision, April 2015 Elizabeth Gonzalez [address] [place] [address] Documentation Clarification Form Date: 07/18/2016 3:36:00 PM From: Jovita Villanueva Admit Date: 07/17/2016 9:16:00 AM Patient Name: Kartik Forbes Visit Number: [id number] Dr. Hiram Randall and Jaime Rust NP History/Risk factors: Lung cancer with mets to liver Currently receiving chemotherapy and radiation Clinical indicators: Labs on 07/18/2016: wbc 3.6, rbc 2.55, platelets 111 Treatment: Consult: Oncology In your professional opinion, can you please clarify if these findings signify one of the following conditions? Pancytopenia due to chemotherapy Pancytopenia drug induced, specify drug Pancytopenia due to other, please specify Unable to determine Other condition, please specify Please document in your progress notes and discharge summary in order to capture severity of illness and risk of mortality. Include clinical findings that support your diagnosis. FYI: Press F11 to launch patient chart. Place X here if this finding has no clinical significance, is not applicable or if you are not able to provide any additional documentation. MTDD
[2016-07-18] MEDS: MAGNESIUM SULFATE-D5W PMX 1 GM in DEXTROSE/WATER 1 100ML.BAG IVPB SCH ×3 (16:33→19:14)
[2016-07-18] MEDS: PANTOPRAZOLE 40 MG/10 ML VIAL IVP SCH (16:34)
[2016-07-18 17:28] LABS: Glucose,Whole Blood 136 mg/dL (75-99)
[2016-07-18] MEDS ORDERED: MELATONIN 3 MG TABLET PO PRN (19:00)
--- NOTE | 2016-07-18 20:54 | P.CONS ---
History of Present Illness - Reason for Consult Consult date: 07/18/16 Metastatic Head and Neck Cancer, on chemo. Syncope - History of Present Illness This is a 76 yr old WM, well known to our service. 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 CT scan of the neck done on 12/01/2013 showed a 2.5x1.7cm mass in left anterior tongue,multiple left sided cervical lymph nodes,largest about 3cm. PET scan done on 01/03/2014 revealed no evidence of metastatic disease. He started concurrently cisplatin and radiation on 01/21/2014,his creatinine went up,was given IV hydration multiple times, we ended up discontinuing cisplatin and had carboplatin instead for his last cycle of chemotherapy on 06/2013 and radiation therapy was completed on 03/19/2014. Repeat PET scan on 05/09/2014 was negative. He had repeat endoscopic evaluation in 07/2014 which was negative. In ,he developed abdominal pain and nausea feeling for 2-3 weeks,had a CT scan of abdomen/pelvis on 01/21/2016which revealed 1.4cm lesion at right hepatic dome and 9mm LLL lung nodule,CT scan of chest done on 02/01/2016 revealed 1cm RUL lung nodule. On 05/09/2016,repeat CT scan of chest revealed 1.2cm RUL mass,stable,however, there was enlarging right hepatic lobe lesion. On 05/14/2016,PET scan revealed suspicious uptake in 1.2cm RUL mass and suspicious uptake in 3.7cm right hepatic dome lesion. On 06/02/2016,CT guided FNA of liver lesion was positive for metastatic squamous cell carcinoma. He started carboplatin/taxol on 06/22/2016. He is s/p 1 cycle and D 1 of cycle 2 ( 07/13/16) He developed acute onset of weakness and dizziness on going to the bathroom, and passed out. He was unconscious briefly, but apparently did not hit his head. He has been having loose BMs over the past few days. In the ER, CTA was negative for PE. CT brain, CXR and ECHO were also negative. His HR was elevated , and he did have 1 episode of fever at 100.5. He was subsequently noted to have a low Na+ at 122, and tested positive for Influenza A. The consult was placed for further evaluation and recommendations Review of Systems Constitutional: Reports fever, Reports weakness Eyes: denies blurred vision, denies pain Ears: deny: decreased hearing, ear discharge, earache, tinnitus Ears, nose, mouth and throat: Reports as per HPI, Reports dysphagia (minimal , since completion of treatment) Cardiovascular: Reports lightheadedness, Reports palpitations, Reports syncope Respiratory: Denies cough Gastrointestinal: Reports diarrhea Genitourinary: Reports as per HPI Musculoskeletal: Reports muscle weakness Integumentary: Denies pruritus, Denies rash Neurological: Reports syncope, Reports weakness Psychiatric: Denies anxiety, Denies depression Endocrine: Denies fatigue, Denies weight change Hematologic/Lymphatic: Reports as per HPI Past Medical History Past Medical History: Cancer, Diabetes Mellitus, Hypertension Additional Past Medical History / Comment(s): DIAGNOSED WITH CA OF BASE OF TONGUE IN 2013 with chemo/radiation, 05/2016 PET SCAN SHOWS CA IN LIVER/lung- currently receiving chemo with 3rd cycle on 04/21/17, PROSTATE CA IN 2006 with radiation, skin cancer with removals, neuropathy bilateral legs and feet. History of Any Multi-Drug Resistant Organisms: None Reported Past Surgical History: Orthopedic Surgery Additional Past Surgical History / Comment(s): 06/21/16 power port placed, LEFT ROTATOR CUFF, skin cancer removal from L forearm, colonoscopy. Past Anesthesia/Blood Transfusion Reactions: No Reported Reaction Past Psychological History: No Psychological Hx Reported Additional Psychological History / Comment(s): Pt resides alone. He is a . He uses no assistive device. He drives. Smoking Status: Former smoker Past Alcohol Use History: Daily Additional Past Alcohol Use History / Comment(s): QUIT SMOKING IN , FOR 60 YRS, 1-2PPD. Pt states he was drinking on a daily basis but has not had any alcohol to drink since 06/22/16. Past Drug Use History: None Reported - Past Family History Father Family Medical History: Cancer Additional Family Medical History / Comment(s): Father had lung cancer. Mother Family Medical History: Cancer Additional Family Medical History / Comment(s): Mother had lung cancer. Medications and Allergies Home Medications Medication Instructions Recorded Confirmed Type Tamsulosin [Flomax] 0.4 mg PO HS 12/01/13 07/17/16 History metFORMIN HCL 1,000 mg PO BID 12/01/13 07/17/16 History Acetaminophen/Diphenhydramine 2 tab PO HS 07/17/16 07/17/16 History [Tylenol PM 500-25mg] Ipratropium [place] 0.06%Nasal 1 spray EA NOSTRIL RT-BID PRN 07/17/16 07/17/16 History [Atrovent Nasal] Lisinopril-Hctz 20-25 mg 1 tab PO DAILY 07/17/16 07/17/16 History [Zestoretic 20-25] Allergies Allergy/AdvReac Type Severity Reaction Status Date / Time No Known Allergies Allergy Verified 07/17/16 07:23 Physical Exam Vitals: Vital Signs Temp Pulse Pulse Pulse Resp BP BP 07/18/16 13:59 139/65 160/81 07/18/16 13:31 108 H 24 156/69 07/18/16 11:30 88 18 07/18/16 11:00 147/80 156/69 07/18/16 10:30 95 20 147/80 07/18/16 07:00 99.1 F 83 18 07/18/16 05:11 140/73 121/51 07/18/16 04:00 97.8 F 07/18/16 02:54 100.5 F H 07/18/16 00:00 109 H 19 07/17/16 23:00 99.8 F H 109 H 19 118/81 BP Pulse Ox 07/18/16 13:59 157/76 07/18/16 13:31 92 L 07/18/16 11:30 191/90 92 L 07/18/16 11:00 191/90 07/18/16 10:30 90 L 07/18/16 07:00 156/75 91 L 07/18/16 05:11 145/68 07/18/16 04:00 07/18/16 02:54 07/18/16 00:00 07/17/16 23:00 90 L Intake and Output 07/18/16 07/18/16 07/18/16 06:59 14:59 22:59 Intake Total 220 Output Total 600 Balance -380 Intake: Oral 220 Output: Urine 600 Other: Voiding Method Toilet Urinal # Voids 3 - Constitutional General appearance: no acute distress - EENT Eyes: EOMI, PERRLA ENT: hearing grossly normal, normal oropharynx - Neck Neck: no lymphadenopathy Thyroid: bilateral: normal size - Respiratory Respiratory: bilateral: CTA - Cardiovascular Rhythm: regular Heart sounds: normal: S1, S2 - Gastrointestinal General gastrointestinal: normal bowel sounds, soft - Integumentary Integumentary: normal - Neurologic Neurologic: CNII-XII intact - Musculoskeletal Musculoskeletal: strength equal bilaterally - Psychiatric Psychiatric: A&O x's 3, appropriate affect Results CBC & Chem 7: 07/18/16 09:34 07/18/16 09:34 Labs: Abnormal Lab Results - Last 24 Hours (Table) 07/17/16 07/17/16 07/18/16 Range/Units 17:10 20:38 07:25 WBC (3.8-10.6) k/uL RBC (4.30-5.90) m/uL Hgb (13.0-17.5) gm/dL Hct (39.0-53.0) % Plt Count (150-450) k/uL Lymphocytes # (1.0-4.8) k/uL Sodium (137-145) mmol/L Chloride (98-107) mmol/L Glucose (74-99) mg/dL POC Glucose (mg/dL) 163 H 150 H (75-99) mg/dL Influenza Type A RNA Detected A (Not Detectd) 07/18/16 07/18/16 07/18/16 Range/Units 09:34 09:34 12:09 WBC 3.6 L (3.8-10.6) k/uL RBC 2.55 L (4.30-5.90) m/uL Hgb 8.6 L (13.0-17.5) gm/dL Hct 24.7 L (39.0-53.0) % Plt Count 111 L (150-450) k/uL Lymphocytes # 0.3 L (1.0-4.8) k/uL Sodium 125 L (137-145) mmol/L Chloride 93 L (98-107) mmol/L Glucose 141 H (74-99) mg/dL POC Glucose (mg/dL) 140 H (75-99) mg/dL Influenza Type A RNA (Not Detectd) Chest x-ray: report reviewed CT scan - chest: report reviewed CT Scan - head: report reviewed Assessment and Plan (1) Syncope Narrative/Plan: This is likely orthostatic in nature. The pt had been having diarrhea for a few days, with some decrease in PO intake. He stated that he had been drinking coffee instead of water. He had hyponatremia, with low urine specific gravity. This indicates intravascular volume depletion. He is being hydrated, with improvement in HR. CTA and CT head were negative. Status: Acute (2) Hyponatremia Narrative/Plan: This appears to be hypovolemic, based on the clinical features as noted above. On IV hydration Status: Acute (3) Influenza A Narrative/Plan: This is likely the precipitating factor for his presentation. The pt is on Tamiflu Status: Acute (4) Tongue cancer Narrative/Plan: He is on chemo for recurrent metastatic disease. His next treatment is due on . This will be held till he completes his course of Tamiflu Status: Acute (5) Pancytopenia due to antineoplastic chemotherapy Narrative/Plan: The pt 's low counts are related to his chemo. His counts are currently in a safe range, and do not require supplementation. Continue to monitor, as counts may drop more than expected, due to the intercurrent influenza Status: Acute
[2016-07-18 21:08] LABS: Glucose,Whole Blood 135 mg/dL (75-99)
[2016-07-18] MEDS: TAMSULOSIN 0.4 MG CAP.ER.24H PO SCH (22:13)
[2016-07-19] MEDS: SODIUM CHLORIDE 0.9% 1,000 ML IV SCH ×2 (04:59→08:52)
[2016-07-19 07:49] LABS: Glucose,Whole Blood 137 mg/dL (75-99)
[2016-07-19] MEDS: OSELTAMIVIR 75 MG CAP PO SCH (08:52)
[2016-07-19] MEDS: INSULIN LISPRO (humaLOG) 300 UNIT/3 ML VIAL SQ SCH ×2 (08:52→11:37)
[2016-07-19] MEDS: PANTOPRAZOLE 40 MG/10 ML VIAL IVP SCH (08:52)
[2016-07-19 10:23] VITALS: BP 151/72; PULSE 93; RESP 16; TEMP 97.5
[2016-07-19 10:45] LABS: Basophils % (A) 0 %; CH 34.2; CHCM 34.2; Eosinophils % (A) 1 %; HCT 27.7 % (39.0-53.0); Luc # (Auto) 0.14; Luc % (Auto) 2; Lymphocytes # (A) 0.5 k/uL (1.0-4.8); Lymphocytes % (A) 8 %; MCH 32.5 pg (25.0-35.0); MCHC 32.3 g/dL (31.0-37.0); MCV 100.4 fL (80.0-100.0); Mean Platelet Volume 7.7; Monocytes # (A) 0.3 k/uL (0-1.0); Monocytes % (A) 5 %; Neutrophils # (A) 5.1 k/uL (1.3-7.7); Neutrophils % (A) 85 %; RBC 2.76 m/uL (4.30-5.90); RDW 12.2 % (11.5-15.5); WBC (Perox) 5.94
[2016-07-19 10:55] LABS: Anion Gap 12 mmol/L; Blood Urea Nitrogen 12 mg/dL (9-20); Carbon Dioxide 21 mmol/L (22-30); Chloride 96 mmol/L (98-107); Glucose 138 mg/dL (74-99); Non-African American GFR(MDRD) >60 (>60 ml/min/1.73 sqM); Potassium 4.3 mmol/L (3.5-5.1); Sodium 129 mmol/L (137-145)
[2016-07-19 11:35] LABS: Glucose,Whole Blood 149 mg/dL (75-99)
[2016-07-19] MEDS ORDERED: FOLIC ACID 1 MG TAB PO SCH (12:00)
[2016-07-19] MEDS ORDERED: MULTIVITAMINS, THERA 1 EACH TAB PO SCH (12:00)
[2016-07-19] MEDS ORDERED: THIAMINE 100 MG TAB PO SCH (12:00)
[2016-07-19] MEDS ORDERED: MAGNESIUM SULFATE-D5W PMX 1 GM in DEXTROSE/WATER 1 100ML.BAG IVPB ONE (13:00)
--- NOTE | 2016-07-19 23:25 | CONS ---
DATE OF CONSULTATION: REASON FOR CONSULTATION: Hyponatremia. HISTORY OF PRESENT ILLNESS: Patient is a 76-year-old white male who was admitted to the hospital on 07/17/2016 with a history of fall. Patient stated he was in the bathroom, he felt weak and fell down. He did not lose consciousness. He is maintained on chemotherapy for cancer of the base of the tongue. This was initially diagnosed in 2013. Subsequently patient was recently found to have a lesion in his liver which was positive for squamous cell cancer, and he is currently maintained on chemotherapy in the form of carboplatin and Taxol. He denies any prior history of kidney diseases. His serum creatinine was 0.9 mg/dL. It was at one point 2 mg/dL on initial admission. Serum sodium was 122 on admission. Patient has been receiving IV fluids and it is now up to 129. He denies any significant diarrhea. His oral intake has been poor. No new medications have been started. Urine osmolality was 344. Random urine sodium was 67. There was concern for possible SIADH; however, it is noted that serum sodium has improved with IV hydration. PAST MEDICAL HISTORY: Extensive history of cancer with initial diagnosis of squamous cell cancer of the base of the tongue, status post chemotherapy, followed by metastatic disease in the liver, maintained on chemotherapy again. PAST SURGICAL HISTORY: 1. Colonoscopy. 2. Mediport placement. 3. Surgery for left rotator cuff. SOCIAL HISTORY: Patient is an ex-smoker. No history of drug abuse or alcohol abuse. Medications at home included: 1. Flomax. 2. Metformin. 3. Lisinopril/hydrochlorothiazide. ALLERGIES: NONE. On examination, patient is currently comfortable, awake, not in any acute distress. Alert and oriented x3. HEENT: Atraumatic, normocephalic. Pupils are equal and round. JVP is not elevated. Lymph nodes are not palpable. Thyroid is not enlarged. EXAMINATION OF THE HEART: S1 and S2. EXAMINATION OF LUNGS: Bilateral breath sounds are heard. ABDOMEN: Soft, nontender. Examination of lower extremities shows no evidence of edema. [employer] exam is grossly intact. Labs show serum sodium 129, hemoglobin 9.0. Urine osmolality 344. Random urine sodium was 67. ASSESSMENT: 1. Hypovolemic hyponatremia, currently improved with normal saline administration, likely to be syndrome of inappropriate antidiuretic hormone secretion, which would actually worsen with saline administration. Patient is maintained on hydrochlorothiazide at home, and we need to monitor his electrolytes closely as outpatient. He may need to decrease his antihypertensive medications, particularly during his chemotherapy. 2. Squamous cell cancer noted on a liver lesion with prior history of squamous cell cancer from the base of the tongue, maintained on chemotherapy, being followed by Oncology. 3. Anemia, multifactorial. PLAN: Continue to encourage oral intake. Monitor electrolytes as outpatient in the next 2 to 3 days. Thank you for this consultation.
--- NOTE | 2016-07-20 07:58 | DS ---
DATE OF ADMISSION: 07/17/2016 DATE OF DISCHARGE: 07/19/2016 DATE OF SERVICE: 07/19/2016 FINAL DIAGNOSES: 1. Syncopal episode attributed to dehydration with acute renal failure with possibly prerenal factors. 2. Hypovolemic hyponatremia with possible mild component of syndrome of inappropriate antidiuretic hormone secretion. 3. Acute renal failure, prerenal azotemia secondary to intravascular volume depletion. 4. Orthostatic hypotension secondary to intravascular volume depletion. 5. Influenza A acute. 6. Lung cancer with metastasis to liver, receiving chemotherapy and radiation outpatient. 7. Hypomagnesemia. 8. Diabetes mellitus type 2. 9. Tachycardia secondary to dehydration. 10. Anemia possibly dilutional secondary to fluid resuscitation. 11. Thrombocytopenia. 12. Acute hypoxic respiratory failure present on admission. DISCHARGE DISPOSITION: The patient will be discharged in stable condition with guarded prognosis. HISTORY OF PRESENT ILLNESS: This 76-year-old gentleman with a past medical history of multiple medical problems was admitted with features of acute influenza A and as well as hypotension, renal failure. The patient was dehydrated. Patient was rehydrated. Patient improved significantly. Otherwise, the hemoglobin is 9 and other labs are noted. On exam, vitals are stable. CARDIOVASCULAR SYSTEM: S1, S2 muffled. RESPIRATORY: A few scattered rhonchi and crackles. ABDOMEN: Soft. NERVOUS SYSTEM: No focal deficits. DISCHARGE ADVICE: 1. Diet is cardiac. 2. Activity limited until followup. 3. Follow up with Dr. La in [place] in one week. 4. Follow up with Dr. Valencia as advised. 5. Follow up with Dr. Barnard as advised. The medications are: 1. Acetaminophen diphenhydramine 2 tablets p.o. q.h.s. 2. Ventolin HFA 2 puffs q.i.d. and p.r.n. 3. Folic acid 1 mg p.o. daily. 4. Atrovent nasal spray. 5. Multivitamin 1 p.o. daily. 6. Tamiflu 75 mg p.o. b.i.d. for 3 more days. 7. Flomax 0.4 mg q.h.s. 8. Vitamin B-1, 100 mg p.o. daily. 9. Metformin 1000 mg p.o. b.i.d. Follow up labs the primary physician. Once again, the patient will be discharged in stable condition with guarded prognosis. MTDD
== END 2016-07-19 14:27 | disposition home or self-care (01) | DRG 643 ==
LOC: EC 05:57 → 4MS4W 09:16
PROVIDERS: ADMIT Hospitalist; ATTEND Hospitalist
DX: E22.2 Syndrome of inappropriate secretion of antidiuretic hormone (principal); D61.810 Antineoplastic chemotherapy induced pancytopenia; J96.01 Acute respiratory failure with hypoxia; N17.9 Acute kidney failure, unspecified; C78.7 Secondary malignant neoplasm of liver and intrahepatic bile duct; C34.90 Malignant neoplasm of unspecified part of unspecified bronchus or lung; C01 Malignant neoplasm of base of tongue; E83.42 Hypomagnesemia; E86.0 Dehydration; E11.9 Type 2 diabetes mellitus without complications; E78.5 Hyperlipidemia, unspecified; F10.10 Alcohol abuse, uncomplicated; I10 Essential (primary) hypertension; J10.1 Influenza due to other identified influenza virus with other respiratory manifestations; T45.1X5A Adverse effect of antineoplastic and immunosuppressive drugs, initial encounter; Z79.899 Other long term (current) drug therapy; Z80.1 Family history of malignant neoplasm of trachea, bronchus and lung; Z85.828 Personal history of other malignant neoplasm of skin; Z86.73 Personal history of transient ischemic attack (TIA), and cerebral infarction without residual deficits; Z87.891 Personal history of nicotine dependence
CPT/HCPCS: 36415; 70450; 71020; 71275; 80048; 80053; 81003; 82550; 82553; 82570; 83036; 83605; 83735; 83930; 83935; 84100; 84300; 84443; 84484; 85025; 85379; 85610; 85730; 87086; 87502; 93005; 93306; 96360; 96361; 99285

== ENCOUNTER 2016-08-14 17:14 | Inpatient (IN) | payer MEDICARE, BC ==
[2016-08-14] MEDS ORDERED: SODIUM CHLORIDE 0.9% 1,000 ML IV ONE (17:34)
[2016-08-14] MEDS ORDERED: HALOPERIDOL LACTATE 5 MG/ML 1 ML VIAL IM PRN ×3 (17:37→21:23)
[2016-08-14 17:39] LABS: Glucose,Whole Blood 151 mg/dL (75-99)
[2016-08-14] MEDS ORDERED: HALOPERIDOL LACTATE 5 MG/ML 1 ML VIAL IM STA (17:46)
--- NOTE | 2016-08-14 17:48 | ED ---
Altered Mental Status HPI - General Chief Complaint: Altered Mental Status Stated Complaint: Altered Mental Status Time Seen by Provider: 08/14/16 17:34 Source: patient, EMS Mode of arrival: EMS Limitations: altered mental status - History of Present Illness Initial Comments: Heart in by ambulance, with the change in mental status later family arrived to admit the chest to speak with the son and the daughter Seen Him Last Time around 3 PM Yesterday at That Time He Was Fine According to the Ambulance Crew 8 AM Today He Had There Are Changes in Mental Status He Was Confused He Was Not Coherent Exact Time of Onset Is Not Known to the EMS of Neither Does That to the Family. 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, He Keeps Repeating That over and over and over, Not Able to Answer Questions and Does Recognize His Son and Daughter in Seems to Try to Cooperate with Them - Related Data Home Medications Medication Instructions Recorded Confirmed Tamsulosin [Flomax] 0.4 mg PO HS 12/01/13 08/14/16 Acetaminophen/Diphenhydramine 2 tab PO HS 07/17/16 08/14/16 [Tylenol PM 500-25mg] Ipratropium [place] 0.06%Nasal 1 spray EA NOSTRIL RT-BID PRN 07/17/16 08/14/16 [Atrovent Nasal 0.06%] Albuterol Inhaler [Ventolin Hfa 2 puff INHALATION RT-QID PRN 08/14/16 08/14/16 Inhaler] Folic Acid 1 mg PO DAILY 08/14/16 08/14/16 Lisinopril [Prinivil] 20 mg PO DAILY 08/14/16 08/14/16 Melatonin 10 mg PO HS 08/14/16 08/14/16 Multivitamins, Thera [Multivitamin] 1 tab PO DAILY 08/14/16 08/14/16 Previous Rx's Medication Instructions Recorded metFORMIN HCL 1,000 mg PO BID #1 tab 07/19/16 Allergies Allergy/AdvReac Type Severity Reaction Status Date / Time No Known Allergies Allergy Verified 08/14/16 18:24 Review of Systems ROS Statement: Those systems with pertinent positive or pertinent negative responses have been documented in the HPI. ROS Other: All systems not noted in ROS Statement are negative. 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 History of Any Multi-Drug Resistant Organisms: None Reported Past Surgical History: Orthopedic Surgery Additional Past Surgical History / Comment(s): 06/21/16 power port placed, LEFT ROTATOR CUFF, skin cancer removal from L forearm, colonoscopy. Past Anesthesia/Blood Transfusion Reactions: No Reported Reaction Past Psychological History: No Psychological Hx Reported Additional Psychological History / Comment(s): Pt resides alone. He is a . He uses no assistive device. He drives. Smoking Status: Former smoker Past Alcohol Use History: Daily Additional Past Alcohol Use History / Comment(s): QUIT SMOKING IN , FOR 60 YRS, 1-2PPD. Pt states he was drinking on a daily basis but has not had any alcohol to drink since 06/22/16. Past Drug Use History: None Reported - Past Family History Father Family Medical History: Cancer Additional Family Medical History / Comment(s): Father had lung cancer. Mother Family Medical History: Cancer Additional Family Medical History / Comment(s): Mother had lung cancer. General Exam - General Exam Comments Initial Comments: General: The patient is awake , agitated, not cooperative with the exam Skin: Skin is warm and dry and no rashes or lesions are noted. Eye: Not cooperative with the exam. Ears, nose, mouth and throat: There are moist mucous membranes and no oral lesions. Neck: The neck is supple, there is no tenderness Cardiovascular: There is a regular rate and rhythm. No murmur, rub or gallop is appreciated. Respiratory: To auscultation bilateral, decreased breath sounds bilaterally Gastrointestinal: Soft, non-distended, non-tender abdomen without masses or organomegaly noted. There is no rebound or guarding present. Bowel sounds are unremarkable. Back: Cooperative with the exam. Musculoskeletal: Normal ROM, no tenderness, There is no pedal edema. There is no calf tenderness or swelling. No cords were appreciated. Neurological: CN II-XII intact, Cranial nerves III through XII are intact. There are no obvious motor or sensory deficits. Coordination appears grossly intact. Speech is normal. Psychiatric: Cooperative, agitated, combative in the family in the room. Limitations: altered mental status Course Vital Signs 08/14/16 08/14/16 17:22 19:50 Temperature 97.7 F Pulse Rate 90 92 Respiratory 18 18 Rate Blood Pressure 179/83 176/77 O2 Sat by Pulse 95 93 L Oximetry EKG is a sinus rhythm with a first-degree AV block and ventricular rate is 89. OH interval is 224 QRS duration is 124 QT/QTc is 368/447 review of this EKG showed multiple artifacts because patient was shaking and noncooperative but did not see any clear ST elevation or ST depression Patient was reassessed several times, referral was made to Dr. Florian Du see the patient in the ER now waiting to her back from Dr. Bills Spoke With the Dr. Bills, he agrees to admit him in the ICU also discussed with the Dr. Barnard made him aware that patient is here and Dr. Lei was informed earlier myself, Dr. Lei's advice hypertonic saline 40 minutes an hour for 3 hours. Medical Decision Making - Lab Data Result diagrams: 08/14/16 17:33 08/14/16 17:33 Lab Results 08/14/16 08/14/16 08/14/16 Range/Units 17:33 17:33 17:33 WBC 4.6 (3.8-10.6) k/uL RBC 2.44 L (4.30-5.90) m/uL Hgb 8.2 L (13.0-17.5) gm/dL Hct 22.5 L (39.0-53.0) % MCV 92.3 D (80.0-100.0) fL MCH 33.8 (25.0-35.0) pg MCHC 36.6 (31.0-37.0) g/dL RDW 13.6 (11.5-15.5) % Plt Count 232 (150-450) k/uL Neutrophils % 79 % Lymphocytes % 10 % Monocytes % 5 % Eosinophils % 1 % Basophils % 1 % Neutrophils # 3.6 (1.3-7.7) k/uL Lymphocytes # 0.5 L (1.0-4.8) k/uL Monocytes # 0.2 (0-1.0) k/uL Eosinophils # 0.1 (0-0.7) k/uL Basophils # 0.0 (0-0.2) k/uL Hyperchromasia Slight PT (9.0-12.0) sec INR (<1.1) APTT (22.0-30.0) sec Sodium 114 L* (137-145) mmol/L Potassium 5.1 (3.5-5.1) mmol/L Chloride 79 L* (98-107) mmol/L Carbon Dioxide 24 (22-30) mmol/L Anion Gap 11 mmol/L BUN 33 H (9-20) mg/dL Creatinine 1.20 (0.66-1.25) mg/dL Est GFR (MDRD) Af Amer >60 (>60 ml/min/1.73 sqM) Est GFR (MDRD) Non-Af 59 (>60 ml/min/1.73 sqM) Glucose 129 H (74-99) mg/dL POC Glucose (mg/dL) (75-99) mg/dL POC Glu Maid Supervisor ID Calcium 9.3 (8.4-10.2) mg/dL Total Bilirubin 0.7 (0.2-1.3) mg/dL AST 31 (17-59) U/L ALT 34 (21-72) U/L Alkaline Phosphatase 56 (38-126) U/L Ammonia (<30) umol/L Total Creatine Kinase 253 H (55-170) U/L CK-MB (CK-2) 3.8 H* (0.0-2.4) ng/mL CK-MB (CK-2) Rel Index 1.5 Troponin I <0.012 (0.000-0.034) ng/mL Total Protein 6.5 (6.3-8.2) g/dL Albumin 4.1 (3.5-5.0) g/dL Urine Color Urine Appearance (Clear) Urine pH (5.0-8.0) Ur Specific [place] (1.001-1.035) Urine Protein (Negative) Urine Glucose (UA) (Negative) Urine Ketones (Negative) Urine Blood (Negative) Urine Nitrate (Negative) Urine Bilirubin (Negative) Urine Urobilinogen (<2.0) mg/dL Ur Leukocyte Esterase (Negative) 08/14/16 08/14/16 08/14/16 Range/Units 17:33 17:33 17:35 WBC (3.8-10.6) k/uL RBC (4.30-5.90) m/uL Hgb (13.0-17.5) gm/dL Hct (39.0-53.0) % MCV (80.0-100.0) fL MCH (25.0-35.0) pg MCHC (31.0-37.0) g/dL RDW (11.5-15.5) % Plt Count (150-450) k/uL Neutrophils % % Lymphocytes % % Monocytes % % Eosinophils % % Basophils % % Neutrophils # (1.3-7.7) k/uL Lymphocytes # (1.0-4.8) k/uL Monocytes # (0-1.0) k/uL Eosinophils # (0-0.7) k/uL Basophils # (0-0.2) k/uL Hyperchromasia PT 9.7 (9.0-12.0) sec INR 0.9 (<1.1) APTT 22.0 (22.0-30.0) sec Sodium (137-145) mmol/L Potassium (3.5-5.1) mmol/L Chloride (98-107) mmol/L Carbon Dioxide (22-30) mmol/L Anion Gap mmol/L BUN (9-20) mg/dL Creatinine (0.66-1.25) mg/dL Est GFR (MDRD) Af Amer (>60 ml/min/1.73 sqM) Est GFR (MDRD) Non-Af (>60 ml/min/1.73 sqM) Glucose (74-99) mg/dL POC Glucose (mg/dL) 151 H (75-99) mg/dL POC Glu Maid Supervisor ID Bowling, Akiko Calcium (8.4-10.2) mg/dL Total Bilirubin (0.2-1.3) mg/dL AST (17-59) U/L ALT (21-72) U/L Alkaline Phosphatase (38-126) U/L Ammonia <9 (<30) umol/L Total Creatine Kinase (55-170) U/L CK-MB (CK-2) (0.0-2.4) ng/mL CK-MB (CK-2) Rel Index Troponin I (0.000-0.034) ng/mL Total Protein (6.3-8.2) g/dL Albumin (3.5-5.0) g/dL Urine Color Urine Appearance (Clear) Urine pH (5.0-8.0) Ur Specific [place] (1.001-1.035) Urine Protein (Negative) Urine Glucose (UA) (Negative) Urine Ketones (Negative) Urine Blood (Negative) Urine Nitrate (Negative) Urine Bilirubin (Negative) Urine Urobilinogen (<2.0) mg/dL Ur Leukocyte Esterase (Negative) 08/14/16 Range/Units 19:50 WBC (3.8-10.6) k/uL RBC (4.30-5.90) m/uL Hgb (13.0-17.5) gm/dL Hct (39.0-53.0) % MCV (80.0-100.0) fL MCH (25.0-35.0) pg MCHC (31.0-37.0) g/dL RDW (11.5-15.5) % Plt Count (150-450) k/uL Neutrophils % % Lymphocytes % % Monocytes % % Eosinophils % % Basophils % % Neutrophils # (1.3-7.7) k/uL Lymphocytes # (1.0-4.8) k/uL Monocytes # (0-1.0) k/uL Eosinophils # (0-0.7) k/uL Basophils # (0-0.2) k/uL Hyperchromasia PT (9.0-12.0) sec INR (<1.1) APTT (22.0-30.0) sec Sodium (137-145) mmol/L Potassium (3.5-5.1) mmol/L Chloride (98-107) mmol/L Carbon Dioxide (22-30) mmol/L Anion Gap mmol/L BUN (9-20) mg/dL Creatinine (0.66-1.25) mg/dL Est GFR (MDRD) Af Amer (>60 ml/min/1.73 sqM) Est GFR (MDRD) Non-Af (>60 ml/min/1.73 sqM) Glucose (74-99) mg/dL POC Glucose (mg/dL) (75-99) mg/dL POC Glu Maid Supervisor ID Calcium (8.4-10.2) mg/dL Total Bilirubin (0.2-1.3) mg/dL AST (17-59) U/L ALT (21-72) U/L Alkaline Phosphatase (38-126) U/L Ammonia (<30) umol/L Total Creatine Kinase (55-170) U/L CK-MB (CK-2) (0.0-2.4) ng/mL CK-MB (CK-2) Rel Index Troponin I (0.000-0.034) ng/mL Total Protein (6.3-8.2) g/dL Albumin (3.5-5.0) g/dL Urine Color Light Yellow Urine Appearance Clear (Clear) Urine pH 6.5 (5.0-8.0) Ur Specific [place] 1.006 (1.001-1.035) Urine Protein Trace H (Negative) Urine Glucose (UA) Negative (Negative) Urine Ketones Negative (Negative) Urine Blood Negative (Negative) Urine Nitrate Negative (Negative) Urine Bilirubin Negative (Negative) Urine Urobilinogen <2.0 (<2.0) mg/dL Ur Leukocyte Esterase Negative (Negative) Critical Care Time Total Critical Care Time: 45 Critical Care Time: And came in quite term agitated think our family came in that helped to calm him down a little bit head CT was done and he required sedation to keep him calm was quite cloudy the ER head CT is normal, his sodium is 114, spoke with on -call signaler Dr. Lei, she agreed with the hypertonic saline 40 mg an hour for 3 hours, have paged the top hat body maker so we could monitor him in ICU Disposition Clinical Impression: Change in mental status, Hyponatremia Disposition: ADMITTED IP TO THIS [facility] Condition: Fair Referrals: None,Stated [Primary Care Provider] - 1-2 days
[2016-08-14] MEDS ORDERED: LORazepam 2 MG/ML SYRINGE IM STA (17:49)
[2016-08-14 17:50] LABS: Basophils % (A) 1 %; CH 34.8; CHCM 37.8; Eosinophils # (A) 0.1 k/uL (0-0.7); Eosinophils % (A) 1 %; HCT 22.5 % (39.0-53.0); HDW 2.85; HGB 8.2 gm/dL (13.0-17.5); Hyperchromasia Slight; Luc # (Auto) 0.17; Luc % (Auto) 4; Lymphocytes # (A) 0.5 k/uL (1.0-4.8); Lymphocytes % (A) 10 %; MCH 33.8 pg (25.0-35.0); MCHC 36.6 g/dL (31.0-37.0); Mean Platelet Volume 7.2; Monocytes # (A) 0.2 k/uL (0-1.0); Monocytes % (A) 5 %; Neutrophils # (A) 3.6 k/uL (1.3-7.7); Neutrophils % (A) 79 %; RBC 2.44 m/uL (4.30-5.90); RDW 13.6 % (11.5-15.5); WBC 4.6 k/uL (3.8-10.6); WBC (Perox) 4.75
[2016-08-14 17:59] LABS: ALT 34 U/L (21-72); AST 31 U/L (17-59); Alkaline Phosphatase 56 U/L (38-126); Anion Gap 11 mmol/L; Blood Urea Nitrogen 33 mg/dL (9-20); Calcium 9.3 mg/dL (8.4-10.2); Carbon Dioxide 24 mmol/L (22-30); Glucose 129 mg/dL (74-99); Non-African American GFR(MDRD) 59 (>60 ml/min/1.73 sqM); Potassium 5.1 mmol/L (3.5-5.1); Total Bilirubin 0.7 mg/dL (0.2-1.3); Total Protein 6.5 g/dL (6.3-8.2)
[2016-08-14 18:00] LABS: MCV 92.3 fL (80.0-100.0)
[2016-08-14 18:03] LABS: Sodium 114 mmol/L (137-145)
[2016-08-14 18:04] LABS: Chloride 79 mmol/L (98-107)
[2016-08-14 18:08] LABS: INR 0.9 (<1.1); Prothrombin Time 9.7 sec (9.0-12.0)
[2016-08-14] MEDS ORDERED: SODIUM CHLORIDE 0.9% 500 ML IV STA (18:11)
[2016-08-14 18:14] LABS: Creatine Kinase 253 U/L (55-170)
[2016-08-14 18:25] LABS: Troponin I <0.012 ng/mL (0.000-0.034)
[2016-08-14 18:30] LABS: Creatine Kinase MB 3.8 ng/mL (0.0-2.4)
[2016-08-14] MEDS ORDERED: ONDANSETRON 4 MG/2 ML VIAL IVP STA (18:32)
[2016-08-14] MEDS ORDERED: HYDROmorphone 1 MG/ML 1 ML SYRINGE IVP STA (18:32)
--- NOTE | 2016-08-14 18:38 | CT ---
EXAMINATION TYPE: CT brain wo con DATE OF EXAM: 08/14/2016 6:29 PM HISTORY: Altered mental status CT DLP: 1702.3 mGycm. Automated Exposure Control for Dose Reduction was Utilized. TECHNIQUE: CT scan of the head is performed without contrast. COMPARISON: CT brain July 17, 2016. FINDINGS: There is no acute intracranial hemorrhage or midline shift identified. There is diffuse v entricular and sulcal prominence consistent with diffuse age-related cerebral atrophy. There is low- attenuation in the periventricular white matter consistent with chronic small vessel ischemic change. The globes are intact and the visualized sinuses are clear. IMPRESSION: No acute intracranial hemorrhage or midline shift. There is moderate diffuse age-relate d cerebral atrophy and moderate to severe chronic small vessel ischemic change redemonstrated without significant change from prior.
[2016-08-14] MEDS ORDERED: IPRATROPIUM BROMIDE 0.06% NASAL SPRAY (15 ML) EA NOSTRIL PRN (19:04)
--- NOTE | 2016-08-14 19:46 | XR ---
EXAMINATION TYPE: XR chest 1V DATE OF EXAM: 08/14/2016 7:27 PM COMPARISON: Prior chest x-ray July 18, 2016 HISTORY: Altered mental status and weakness. TECHNIQUE: Single AP portable frontal upright view of the chest is obtained. FINDINGS: There is stable right internal jugular Mediport catheter. Somewhat low lung volumes are not ed. There is no focal air space opacity, pleural effusion, or pneumothorax seen. The cardiac silhoue tte size is within normal limits. The osseous structures are intact. IMPRESSION: No acute cardiopulmonary process.
[2016-08-14] MEDS ORDERED: [UNRECOGNIZED DRUG - OTHER] IV ONE ×2 (20:00→23:45)
[2016-08-14] MEDS ORDERED: SODIUM CHLORIDE 3% IV ONE ×2 (20:00→23:45)
[2016-08-14 20:07] LABS: Appearance,Urine Clear (Clear); Bilirubin,Urine Negative (Negative); Glucose,Urine (UA) Negative (Negative); Ketones,Urine Negative (Negative); Leukocyte Esterase,Urine Negative (Negative); Nitrite,Urine Negative (Negative); PH, Urine 6.5 (5.0-8.0); Protein,Urine Trace (Negative); Specific Gravity,Urine 1.006 (1.001-1.035); UA Billing (MACRO vs. MICRO) CHEM; Urobilinogen,Urine <2.0 mg/dL (<2.0)
[2016-08-14] MEDS: ALBUTEROL NEBULIZED 2.5 MG/3 ML INHALATION SCH (20:28)
[2016-08-14] MEDS ORDERED: ALPRAZolam 0.25 MG TAB PO PRN (20:51)
[2016-08-14] MEDS ORDERED: ACETAMINOPHEN SUPPOSITORY 650 MG SUPP RECTAL PRN (20:51)
[2016-08-14] MEDS ORDERED: NALOXONE 0.4 MG/ML 1 ML VIAL IV PRN (20:51)
[2016-08-14 21:41] LABS: Glucose,Whole Blood 173 mg/dL (75-99)
[2016-08-14] MEDS: LORazepam 2 MG/ML SYRINGE IV PRN (22:51)
[2016-08-14 22:58] LABS: ALT 31 U/L (21-72); AST 34 U/L (17-59); Alkaline Phosphatase 50 U/L (38-126); Anion Gap 12 mmol/L; Blood Urea Nitrogen 29 mg/dL (9-20); Calcium 9.1 mg/dL (8.4-10.2); Carbon Dioxide 22 mmol/L (22-30); Chloride 82 mmol/L (98-107); Glucose 142 mg/dL (74-99); Non-African American GFR(MDRD) >60 (>60 ml/min/1.73 sqM); Total Bilirubin 0.9 mg/dL (0.2-1.3); Total Protein 6.3 g/dL (6.3-8.2)
[2016-08-14 23:12] LABS: Sodium 116 mmol/L (137-145)
[2016-08-14] MEDS: diphenhydrAMINE 25 MG CAP PO SCH (23:32)
[2016-08-14] MEDS: metFORMIN 500 MG TAB PO SCH (23:32)
[2016-08-14] MEDS: ACETAMINOPHEN TAB 500 MG TAB PO SCH (23:32)
[2016-08-14] MEDS: TAMSULOSIN 0.4 MG CAP.ER.24H PO SCH (23:32)
[2016-08-14] MEDS: MELATONIN 5 MG TABLET PO SCH (23:32)
[2016-08-15 04:02] LABS: Aty Lym Flag Slight; CHCM 36.6; HCT 22.7 % (39.0-53.0); HDW 2.75; HGB 7.9 gm/dL (13.0-17.5); MCH 33.3 pg (25.0-35.0); MCHC 34.7 g/dL (31.0-37.0); MCV 95.8 fL (80.0-100.0); Mean Platelet Volume 6.6; RBC 2.37 m/uL (4.30-5.90); WBC 3.4 k/uL (3.8-10.6); WBC (Perox) 3.53
[2016-08-15 04:19] LABS: Anion Gap 11 mmol/L; Blood Urea Nitrogen 29 mg/dL (9-20); Carbon Dioxide 25 mmol/L (22-30); Chloride 83 mmol/L (98-107); Glucose 126 mg/dL (74-99); Non-African American GFR(MDRD) 59 (>60 ml/min/1.73 sqM); Potassium 4.6 mmol/L (3.5-5.1); Sodium 119 mmol/L (137-145)
[2016-08-15 05:19] LABS: Add Differential Manual Differential
[2016-08-15] MEDS: LORazepam 2 MG/ML SYRINGE IV PRN (05:22)
[2016-08-15 05:23] LABS: Nucleated Red Blood Cells 0 /100 WBC (0-0); Total Cells Counted 100
[2016-08-15 05:25] LABS: Manual Review Performed
[2016-08-15 07:36] LABS: Anion Gap 9 mmol/L; Blood Urea Nitrogen 25 mg/dL (9-20); Calcium 9.6 mg/dL (8.4-10.2); Carbon Dioxide 26 mmol/L (22-30); Chloride 90 mmol/L (98-107); Glucose 136 mg/dL (74-99); Non-African American GFR(MDRD) >60 (>60 ml/min/1.73 sqM); Potassium 4.6 mmol/L (3.5-5.1); Sodium 125 mmol/L (137-145)
[2016-08-15] MEDS: ALBUTEROL NEBULIZED 2.5 MG/3 ML INHALATION SCH ×4 (07:51→19:28)
[2016-08-15 08:20] LABS: Glucose,Whole Blood 154 mg/dL (75-99)
[2016-08-15] MEDS: metFORMIN 500 MG TAB PO SCH ×2 (08:22→21:16)
[2016-08-15] MEDS: PANTOPRAZOLE 40 MG/10 ML VIAL IV SCH (08:22)
--- NOTE | 2016-08-15 08:58 | HP ---
DATE OF ADMISSION: 08/14/2016 CHIEF COMPLAINT: Change in mental status. 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 The patient also has had an episode of acute influenza A also. During that time, the patient was thought to have a combination of hypovolemic hyponatremia, and as well as mild component of syndrome of inappropriate antidiuretic hormone. Dr. Valencia also saw the patient, was treated symptomatically. Patient improved significantly. Sodium was 129. Patient went home. Patient apparently living by himself, but with help of the family who was bringing food and things to his house. This morning the son noted that patient is extremely confused and having abnormal behavior, combative, restless and the patient was fine last night and the ambulance was called. The patient was taken to [facility] for further evaluation and treatment. The patient also hurt his knee also according to the family, but otherwise, there is no history of and a CAT scan of the brain did not show acute abnormality. There is no history of any fever, rigors or chills. A scan and the patient at this time, the patient is completely confused and combative and restless at this time. Most of the history taken from my discussion with the ER physician, review of the chart and discussion with family at bedside. PAST MEDICAL HISTORY: History of throat cancer with mets to lungs and liver, history of syncope, history of hyponatremia, history of renal failure, history of diabetes type 2, history of respiratory failure. Medications prior admission, the home medications include: 1. Metformin 1000 mg p.o. b.i.d. 2. Flomax 0.4 q.h.s. 3. Multivitamins on p.o. daily. 4. Melatonin 10 mg q.h.s. 5. Prinivil 20 mg daily. 6. Atrovent b.i.d. p.r.n. 7. Folic acid 1 mg daily. 8. Ventolin HFA 2 puffs q.i.d. p.r.n. 9. Tylenol PM 2 tablets q.h.s. Allergies are none. FAMILY HISTORY, SOCIAL HISTORY: and review of systems could not be taken at length because of the patient's change in mental status but from the chart, history of occasional alcohol and previous history of smoking. PHYSICAL EXAM: Patient is conscious but confused as mentioned earlier. Pulse 90, blood pressure 117/80, respirations 18, temperature 97.7, pulse ox 94% on room air. HEENT: Conjunctivae normal. Oral mucosa moist. NECK: No jugular venous distention. No carotid bruit. No lymph node enlargement. CARDIOVASCULAR: S1, S2 muffled. No S3, no S4. RESPIRATORY: Breath sounds diminished at the bases. A few rhonchi, no crackles. ABDOMEN: Soft and nontender, No mass palpable. No hepatosplenomegaly. LEGS: No edema. No swelling. Nervous system: Higher functions as mentioned earlier. Moves all 4 limbs. No focal motor or sensory deficits. The patient is not able to cooperative with the exam. SKIN: No ulcer, rash or bleeding. LYMPHATICS: No lymph nodes palpable in the neck, axillae or groin. Lab investigations are WBC 4.7, hemoglobin 8.2, sodium is 114, chloride 79 and creatinine kinase is 253. ASSESSMENT: 1. Change in mental status, metabolic encephalopathy, possibly secondary for hyponatremia. 2. Hyperchloremia. 3. Increased random blood sugar. 4. Increased creatinine kinase. 5. Anemia, normocytic, anemia of chronic disease. 6. History of throat cancer secondary to lung and liver on chemo and radiation. 7. History of recent hyponatremia, possibly secondary to hypovolemia as well as syndrome of inappropriate antidiuretic hormone. 8. History of renal failure. 9. History of orthostatic hypotension. 10. History of recent influenza. 11. Diabetes mellitus type 2. 12. FULL CODE. RECOMMENDATIONS AND DISCUSSION: In this 76-year-old gentleman who presented with multiple complex medical issues, we will monitor the patient closely. Continue the current medications and symptomatic treatment. 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 Bolus fluid was given. Recommend nephrology consultation and possibly 3% saline. Otherwise symptomatic treatment will be provided and neurologist and psych may be consulted. Prognosis guarded because of multiple complex medical issues because of history of malignancy and other issues as mentioned earlier which I discussed at length with the family who understood and agrees. Further recommendations to follow. See orders for further details. A copy of dictation forwarded to primary care physician. ROB
--- NOTE | 2016-08-15 10:54 | P.NPCON ---
History of Present Illness - Reason for Consult hyponatremia - History of Present Illness Reason for consultation: Hyponatremia History of present illness: Patient is a 76-year-old male seen in renal consultation for hyponatremia. Patient has history of throat cancer with metastasis to the liver and has been undergoing chemotherapy. His last round of chemotherapy was on August 07. Patient presented the hospital due to altered mental status. According to the family, he was confused and not making sense. His oral intake over the last few days has been poor. He is also been drinking quite a bit of fluids to keep himself hydrated. Denies vomiting or diarrhea. His sodium level on admission on August 15 at 6 PM was 114. He was subsequently started on 3% saline which she received overnight. His sodium level came up to 119 at 3 in the morning and at that time fluids were discontinued. Sodium level this morning is up to 125. His urine output was 300-400 mL an hour and is now about 100-150 an hour. Patient's currently resting in bed and is quite lethargic. His mentation overall has improved according to the nurse and family members. GFR is stable with creatinine of 1.1 today. Vital signs are stable. General: The patient appeared well nourished and normally developed. HEENT: Head exam is unremarkable. Neck is without jugular venous distension. LUNGS: Lungs are clear to auscultation and percussion. Breath sounds decreased. HEART: Rate and Rhythm are regular. First and second heart sounds normal. No murmurs, rubs or gallops. ABDOMEN: Abdominal exam reveals normal bowel sounds. Non-tender and non- distended. No evidence of peritonitis. EXTREMITITES: No clubbing, cyanosis, or edema. 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 History of Any Multi-Drug Resistant Organisms: None Reported Past Surgical History: Orthopedic Surgery Additional Past Surgical History / Comment(s): 06/21/16 power port placed, LEFT ROTATOR CUFF, skin cancer removal from L forearm, colonoscopy. Past Anesthesia/Blood Transfusion Reactions: No Reported Reaction Past Psychological History: No Psychological Hx Reported Additional Psychological History / Comment(s): Pt resides alone. He is a . He uses no assistive device. He drives. Smoking Status: Former smoker Past Alcohol Use History: Daily Additional Past Alcohol Use History / Comment(s): QUIT SMOKING IN , FOR 60 YRS, 1-2PPD. Pt states he was drinking on a daily basis but has not had any alcohol to drink since 06/22/16. Past Drug Use History: None Reported - Past Family History Father Family Medical History: Cancer Additional Family Medical History / Comment(s): Father had lung cancer. Mother Family Medical History: Cancer Additional Family Medical History / Comment(s): Mother had lung cancer. Medications and Allergies Home Medications Medication Instructions Recorded Confirmed Type Tamsulosin [Flomax] 0.4 mg PO HS 12/01/13 08/14/16 History Acetaminophen/Diphenhydramine 2 tab PO HS 07/17/16 08/14/16 History [Tylenol PM 500-25mg] Ipratropium [place] 0.06%Nasal 1 spray EA NOSTRIL RT-BID PRN 07/17/16 08/14/16 History [Atrovent Nasal 0.06%] Albuterol Inhaler [Ventolin Hfa 2 puff INHALATION RT-QID PRN 08/14/16 08/14/16 History Inhaler] Folic Acid 1 mg PO DAILY 08/14/16 08/14/16 History Lisinopril [Prinivil] 20 mg PO DAILY 08/14/16 08/14/16 History Melatonin 10 mg PO HS 08/14/16 08/14/16 History Multivitamins, Thera [Multivitamin] 1 tab PO DAILY 08/14/16 08/14/16 History Allergies Allergy/AdvReac Type Severity Reaction Status Date / Time No Known Allergies Allergy Verified 08/14/16 18:24 Physical Exam Vitals: Vital Signs Temp Pulse Pulse Resp BP Pulse Ox 08/15/16 10:00 70 14 100/49 96 08/15/16 09:00 73 13 146/61 97 08/15/16 08:00 97.3 F L 72 88 14 114/67 100 08/15/16 07:00 75 15 132/68 100 08/15/16 06:00 79 22 148/71 100 08/15/16 05:00 78 24 153/68 99 08/15/16 04:00 98.0 F 78 15 136/64 100 08/15/16 03:00 85 14 146/72 100 08/15/16 02:00 69 12 142/65 99 08/15/16 01:00 65 12 95/49 100 08/15/16 00:00 97.7 F 71 88 19 80/49 100 08/14/16 23:00 90 13 136/77 91 L 08/14/16 22:00 98 7 L 104/64 95 08/14/16 21:54 97.5 F L 88 18 97 08/14/16 21:44 98 08/14/16 21:30 97.2 F L 92 18 155/75 95 08/14/16 21:02 95 18 157/68 95 Intake and Output 08/14/16 08/15/16 08/15/16 22:59 06:59 14:59 Intake Total 200 60 Output Total 3400 1100 Balance -3200 -1040 Intake: IV 200 Sodium Chloride 3%( 200 Hypertonic) 120 ml @ 40 mls/hr IV .Q3H ONE Rx#: [id number] Oral 60 Output: Urine 3400 1100 Other: Voiding Method Indwelling Catheter Indwelling Catheter Weight 94.6 kg 94.6 kg 94.6 kg Patient Weight 08/16/16 06:59 Weight 94.6 kg Results - Lab Results Most recent lab results Calcium 9.6 mg/dL (8.4-10.2) 08/15/16 07:05 08/15/16 03:02 08/15/16 07:05 Assessment and Plan Plan: Assessment: #1. Hyponatremia secondary to excess water intake in the setting of low solute intake. Sodium level improving and is up to 125 this morning. It was 114 at the time of admission on August 14 at 6 PM. #2. 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 #3. Altered mental status related to hyponatremia. #4. Anemia. Rule out iron deficiency. Plan: 3% saline was discontinued at 4 AM. I will give him 1 g of DDAVP IV once now. Encourage oral intake. Repeat sodium level at 4 PM today. Check iron studies. Thank you for the consultation. I will continue to follow the patient with you during his hospital stay.
[2016-08-15] MEDS ORDERED: DESMOPRESSIN INJ 1 MCG in SODIUM CHLORIDE 0.9% 50 ML IVPB ONE (11:00)
[2016-08-15] MEDS: LISINOPRIL 20 MG TAB PO SCH (11:28)
[2016-08-15] MEDS: MULTIVITAMINS, THERA 1 EACH TAB PO SCH (11:29)
[2016-08-15] MEDS: FOLIC ACID 1 MG TAB PO SCH (11:29)
[2016-08-15 11:37] LABS: Anion Gap 10 mmol/L; Blood Urea Nitrogen 25 mg/dL (9-20); Calcium 9.5 mg/dL (8.4-10.2); Carbon Dioxide 26 mmol/L (22-30); Chloride 90 mmol/L (98-107); Glucose 122 mg/dL (74-99); Iron 57 ug/dL (49-181); Non-African American GFR(MDRD) >60 (>60 ml/min/1.73 sqM); Sodium 126 mmol/L (137-145)
[2016-08-15 11:47] LABS: % Iron Saturation 18.5 % (20-50); Total Iron Binding Capacity 308 ug/dL (261-462)
--- NOTE | 2016-08-15 12:44 | P.CNPUL ---
History of Present Illness Consult date: 08/15/16 Chief complaint: Change in mental status History of present illness: 76-year-old male patient who presented to the hospital yesterday because of change in mental status. At that point the patient was found to be profoundly hyponatremic and his sodium level was 114. He had a similar admission approximately a month ago with a sodium levels were noted to be low however did not to this extent. The patient was quite lethargic and confused. In fact he was getting restless and yelling and thrashing throughout the night. He was given Haldol and later on Ativan to control his agitation. In terms of his hyponatremia, the patient was started on hypertonic saline at 3% at the rate of 40 mL an hour. Overnight his sodium level gradually came up and earlier this morning it came up to 125. This was a concern due to a rapid correction of the sodium level and the findings on the case and the patient will be given a dose of DDAVP. Nephrology is on the case in this regard. Note that the swelling increased urine output and at one point the patient was producing up to 300-400 mL on an hourly basis which has another concern. Note that along with this correction of the sodium level, the patient improved and his mentation improved significantly to the point where the patient woke up this morning and is following commands and answering questions and he was appropriate to place and people. He was taken hydrochlorothiazide in the past not for now. He is known to have a malignancy and the base of his tongue which is of a squamous cell type and the patient has undergone previous chemoradiation therapy. His disease is felt to be metastatic at this point during that he has a lesion in the liver that was found to be consistent with squamous cell carcinoma. He is under the care of Dr. Barnard. No signs of any dehydration. Apparently was drinking and eating and he was quite active prior to his hospital admission. His renal function was stable with a creatinine of 1.1. No headache. No head trauma. Chest x-ray from this current admission shows no acute abnormalities. CAT scan of the brain showed no acute intracranial hemorrhage or midline shift and there is moderate diffuse age-related cerebral atrophy. In terms of further workup, the patient was found to have a urine osmolarity of 314 and urine random sodium of 47. UA is essentially negative at this point. Nephrology also saw the patient and dictating that the hyponatremia is most likely secondary to excessive water intake compared to solute Review of Systems Review of systems cannot be obtained due to his mental status and most of the positive findings are all mentioned above in history of present illness Past Medical History Past Medical History: Cancer, Diabetes Mellitus, Hypertension Additional Past Medical History / Comment(s): Squamous cell carcinoma of the base of the tongue, initially diagnosed in 2013 and she with chemoradiation therapy and subsequently the patient was found to have metastatic disease in his liver and currently on further treatment with chemotherapy and he has received first cycle on 04/11/2017, prostate cancer treated with radiation therapy in 2006, skin cancer, resected, peripheral neuropathy, diabetes mellitus , hypertension, recent hospitalization for syncope, recent hospitalization for influenza A, chronic anemia along with a component of leukopenia probably related to previous chemotherapy intake. History of Any Multi-Drug Resistant Organisms: None Reported Past Surgical History: Orthopedic Surgery Additional Past Surgical History / Comment(s): 06/21/16 power port placed, LEFT ROTATOR CUFF, skin cancer removal from L forearm, colonoscopy. Past Anesthesia/Blood Transfusion Reactions: No Reported Reaction Past Psychological History: No Psychological Hx Reported Additional Psychological History / Comment(s): Pt resides alone. He is a . He uses no assistive device. He drives. Smoking Status: Former smoker Past Alcohol Use History: Daily Additional Past Alcohol Use History / Comment(s): QUIT SMOKING IN , FOR 60 YRS, 1-2PPD. Pt states he was drinking on a daily basis but has not had any alcohol to drink since 06/22/16. Past Drug Use History: None Reported - Past Family History Father Family Medical History: Cancer Additional Family Medical History / Comment(s): Father had lung cancer. Mother Family Medical History: Cancer Additional Family Medical History / Comment(s): Mother had lung cancer. Medications and Allergies Home Medications Medication Instructions Recorded Confirmed Type Tamsulosin [Flomax] 0.4 mg PO HS 12/01/13 08/14/16 History Acetaminophen/Diphenhydramine 2 tab PO HS 07/17/16 08/14/16 History [Tylenol PM 500-25mg] Ipratropium [place] 0.06%Nasal 1 spray EA NOSTRIL RT-BID PRN 07/17/16 08/14/16 History [Atrovent Nasal 0.06%] Albuterol Inhaler [Ventolin Hfa 2 puff INHALATION RT-QID PRN 08/14/16 08/14/16 History Inhaler] Folic Acid 1 mg PO DAILY 08/14/16 08/14/16 History Lisinopril [Prinivil] 20 mg PO DAILY 08/14/16 08/14/16 History Melatonin 10 mg PO HS 08/14/16 08/14/16 History Multivitamins, Thera [Multivitamin] 1 tab PO DAILY 08/14/16 08/14/16 History Allergies Allergy/AdvReac Type Severity Reaction Status Date / Time No Known Allergies Allergy Verified 08/14/16 18:24 Physical Exam Vitals: Vital Signs Temp Pulse Pulse Resp BP Pulse Ox 08/15/16 12:00 71 88 10 L 146/65 99 08/15/16 11:31 66 08/15/16 11:17 68 08/15/16 11:00 97.4 F L 69 13 119/60 100 08/15/16 10:00 70 14 100/49 96 08/15/16 09:00 73 13 146/61 97 08/15/16 08:00 97.3 F L 72 88 14 114/67 100 08/15/16 07:00 75 15 132/68 100 08/15/16 06:00 79 22 148/71 100 08/15/16 05:00 78 24 153/68 99 08/15/16 04:00 98.0 F 78 15 136/64 100 08/15/16 03:00 85 14 146/72 100 08/15/16 02:00 69 12 142/65 99 08/15/16 01:00 65 12 95/49 100 08/15/16 00:00 97.7 F 71 88 19 80/49 100 08/14/16 23:00 90 13 136/77 91 L 08/14/16 22:00 98 7 L 104/64 95 08/14/16 21:54 97.5 F L 88 18 97 08/14/16 21:44 98 08/14/16 21:30 97.2 F L 92 18 155/75 95 08/14/16 21:02 95 18 157/68 95 Intake and Output 08/14/16 08/15/16 08/15/16 22:59 06:59 14:59 Intake Total 200 110 Output Total 3400 1650 Balance -3200 -1540 Intake: IV 200 Sodium Chloride 3%( 200 Hypertonic) 120 ml @ 40 mls/hr IV .Q3H ONE Rx#: [id number] Intake, IV Titration 50 Amount Desmopressin Inj 1 mcg In 50 Sodium Chloride 0.9% 50 ml @ 200 mls/hr IVPB ONCE ONE Rx#:[id number] Oral 60 Output: Urine 3400 1650 Other: Voiding Method Indwelling Catheter Indwelling Catheter Weight 94.6 kg 94.6 kg 94.6 kg Patient Weight 08/16/16 06:59 Weight 94.6 kg Head exam was generally normal. There was no scleral icterus or corneal arcus. Mucous membranes were moist.Neck was supple and without jugular venous distension, thyromegaly, or carotid bruits. Carotids were easily palpable bilaterally. There was no adenopathy.Lungs were clear to auscultation and percussion, and with normal diaphragmatic excursion. No wheezes or rales were noted. Cardiac exam revealed the PMI to be normally situated and sized. The rhythm was regular and no extrasystoles were noted during several minutes of auscultation. The first and second heart sounds were normal and physiologic splitting of the second heart sound was noted. There were no murmurs, rubs, clicks, or gallops.Abdominal exam revealed normal bowel sounds. The abdomen was soft, non-tender, and without masses, organomegaly, or appreciable enlargement of the abdominal aorta.Examination of the extremities revealed easily palpable radial, femoral and pedal pulses. There was no cyanosis, clubbing or edema. Neurologic exam is nonfocal and the patient is moving all 4 extremities without any major limitation. Results - Laboratory Findings CBC and BMP: 08/15/16 03:02 08/15/16 11:02 PT/INR, D-dimer PT 9.7 sec (9.0-12.0) 08/14/16 17:33 INR 0.9 (<1.1) 08/14/16 17:33 Abnormal lab findings: Abnormal Labs 08/14/16 08/14/16 08/15/16 21:39 22:32 03:02 WBC 3.4 L RBC 2.37 L Hgb 7.9 L Hct 22.7 L Lymphocytes # (Manual) 0.3 L Sodium 116 L* Chloride 82 L BUN 29 H Glucose 142 H POC Glucose (mg/dL) 173 H % Saturation 08/15/16 08/15/16 08/15/16 03:02 07:05 08:19 WBC RBC Hgb Hct Lymphocytes # (Manual) Sodium 119 L* 125 L Chloride 83 L 90 L BUN 29 H 25 H Glucose 126 H 136 H POC Glucose (mg/dL) 154 H % Saturation 08/15/16 11:02 WBC RBC Hgb Hct Lymphocytes # (Manual) Sodium 126 L Chloride 90 L BUN 25 H Glucose 122 H POC Glucose (mg/dL) % Saturation 18.5 L - Diagnostic Findings Chest x-ray: image reviewed Assessment and Plan Plan: Assessment 1 severe hyponatremia with secondary change in mental status. Rule out hyponatremia secondary to excessive fluid intake compared to solute. Underlying SIADH is felt to be less likely at this point. The patient is producing significant amount of urine output and there may be a component of rapid correction of his sodium level up to 125. Nephrology is inclined to give the patient dose of desmopressin. 2 change in mental status improving 3 squamous cell carcinoma of the base of the tongue, metastatic with liver involvement currently on systemic chemotherapy 4 chronic anemia 5 diabetes mellitus type 2 6 hypertension 7 hypo-lipidemia 8 prostate cancer with previous radiation therapy approximately 2006 Plan Monitor the sodium level obtain a repeat sodium level every 4 hours. We'll give the patient does of desmopressin to slow down the rate of correction of the hyponatremia. Monitor neurologic function and status. Monitor this electrolytes. The patient will be kept in ICU for further monitoring and will continue following up this patient along with aggressive the consultants from nephrology.
--- NOTE | 2016-08-15 15:58 | PN ---
DATE OF SERVICE: 08/15/2016 This 76-year-old gentleman who was admitted with change in mental status, metabolic encephalopathy, severe hyponatremia, possibly SAIDH, was given 3% saline yesterday by Nephrology. Patient is improving significantly. Patient is sleeping at this time but arousable. The sodium improved to 126 after 3% saline. Urine output was also noted. DDAVP one dose was given by Dr. Valencia. Past medical history reviewed. REVIEW OF SYSTEMS: CARDIOVASCULAR SYSTEM: No angina, palpitations. RESPIRATORY SYSTEM: As mentioned earlier. GI: As mentioned earlier. NERVOUS SYSTEM: As mentioned earlier. Current medications are: 1. Tylenol 650 q.4 p.r.n. 2. Ventolin 2.5 q.i.d. 3. Xanax 0.5. q.6. 4. Benadryl 25 mg at bedtime. 5. Folic acid 1 mg daily. 6. Haldol 5 mg q.4 p.r.n. 7. Atrovent q.i.d. p.r.n. 8. Zestril 20 mg p.o. daily. 9. Ativan 1 mg q.4 p.r.n. 10. Melatonin 10 mg at bedtime. 11. Glucophage 1000 mg p.o. b.i.d. 12. Multivitamin 1 p.o. daily. 13. Narcan 0.2 q.2 p.r.n. 14. Protonix 40 mg daily. 15. Flomax 0.4 at bedtime. PHYSICAL EXAMINATION: Patient is alert and oriented x2. Pulse is 71, blood pressure 140/62, respiration 16, temperature normal, pulse ox 99% on 2 L. HEENT: Conjunctivae normal. NECK: No jugular venous distention. CARDIOVASCULAR SYSTEM: S1, S2 muffled. RESPIRATORY SYSTEM: Breath sounds diminished at the bases. A few scattered rhonchi. No crackles. ABDOMEN: Soft, nontender. No mass palpable. LEGS: No edema. No swelling. NERVOUS SYSTEM: Higher functions as mentioned earlier. Moves all 4 limbs. No focal motor or sensory deficit. LYMPHATICS: No lymph node palpable in neck, axillae or groin. SKIN: No ulcer, rash, bleeding. Labs at this time show hemoglobin 7.9. Otherwise, sodium is 126. BUN is 25. Glucose 122. ASSESSMENT: 1. Change in mental status, metabolic encephalopathy, possible toxic metabolic encephalopathy secondary to hyponatremia. 2. Hyperchloremia. 3. Possible syndrome of inappropriate antidiuretic hormone or diminished or increased oral intake of foods. 4. Increased random blood sugar. 5. Increased creatine kinase. 6. Anemia, normocytic; anemia of chronic disease. 7. 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 8. History of recent hypnatremia, possibly secondary to hypovolemia as well as syndrome of inappropriate antidiuretic hormone. 9. History of renal failure. 10. History of orthostatic hypotension. 11. History of influenza. 12. Diabetes mellitus, type 2. 13. FULL CODE. RECOMMENDATIONS AND DISCUSSION: I recommend to continue with the current medications, continue with the monitoring, symptomatic treatment. Otherwise, at this time repeat labs. Monitor fluid/electrolyte balance closely. See orders for further details. Prognosis guarded. Discussed with the patient and family, who understand and agree. Further recommendations to follow. MTDD
--- NOTE | 2016-08-15 18:56 | P.CONS ---
History of Present Illness - Reason for Consult Consult date: 08/15/16 malignancy Requesting physician: Deborah Du - Chief Complaint AMS - History of Present Illness Mr. Forbes is a very pleasant male pt of Dr. Barnard who presented with palpable left neck mass October 2013. He was evaluated by Dr. Wood and found to have an irregular lesion along the left base of his tongue, triple endoscopy done on 12/04/2013 and a biopsy from left base of tongue was positive for invasive squamous cell carcinoma. CT neck 12/01/13 showed a 2.5 x 1.7cm mass in left anterior tongue with multiple left sided cervical lymph nodes. Staging PET on 01/03/2014 revealed no evidence of metastatic disease. He started concurrent cisplatin and radiation on 01/21/2014 and received 2/3 planned chemo treatments due to elevated creatinine, pt had carboplatin for last cycle of chemo on 03/04/2014, radiation was completed on 03/19/14. Treatment f/u PET 05/09/14 was negative, repeat endoscopic evaluation in 07/2014 was negative. In January 2016 he presented with abdominal pain and nausea for 2-3 weeks, CT AP 01/21/16 revealed 1.4cm liver lesion right hepatic dome, 9mm LLL lung nodule, CT chest 02/01/16 revealed 1cm RUL lung nodule. Pt was placed on close observation. Monitoring CT chest RUL mass stable liver lesion was enlarging. PET on 05/14/16 suspicious uptake in RUL mass and in 3.7cm right hepatic dome lesion. CT guided FNA of liver lesion 06/02/16 was positive for metastatic squamous cell carcinoma. He started carboplatin/taxol on 06/22/2016, treatment f/u CT CAP 07/27/16 revealed significant decrease in RUL lung nodule and decrease in the size of liver lesion to 2.2cm. He is currently s/p 2 cycles day 1 & 8 and day 1 of cycle 3. Pt was very sleepy, difficult to arouse but he did follow commands, nursing confirmed pt was more oriented this AM, he was alert and ate breakfast. Pt did visually appear to be in any distress. Review of Systems All systems: negative Constitutional: Reports as per HPI Past Medical History Past Medical History: Cancer, Diabetes Mellitus, Hypertension Additional Past Medical History / Comment(s): Squamous cell carcinoma of the base of the tongue, initially diagnosed in 2013 and she with chemoradiation therapy and subsequently the patient was found to have metastatic disease in his liver and currently on further treatment with chemotherapy and he has received first cycle on 04/11/2017, prostate cancer treated with radiation therapy in 2006, skin cancer, resected, peripheral neuropathy, diabetes mellitus , hypertension, recent hospitalization for syncope, recent hospitalization for influenza A, chronic anemia along with a component of leukopenia probably related to previous chemotherapy intake. History of Any Multi-Drug Resistant Organisms: None Reported Past Surgical History: Orthopedic Surgery Additional Past Surgical History / Comment(s): 06/21/16 power port placed, LEFT ROTATOR CUFF, skin cancer removal from L forearm, colonoscopy. Past Anesthesia/Blood Transfusion Reactions: No Reported Reaction Past Psychological History: No Psychological Hx Reported Additional Psychological History / Comment(s): Pt resides alone. He is a . He uses no assistive device. He drives. Smoking Status: Former smoker Past Alcohol Use History: Daily Additional Past Alcohol Use History / Comment(s): QUIT SMOKING IN , FOR 60 YRS, 1-2PPD. Pt states he was drinking on a daily basis but has not had any alcohol to drink since 06/22/16. Past Drug Use History: None Reported - Past Family History Father Family Medical History: Cancer Additional Family Medical History / Comment(s): Father had lung cancer. Mother Family Medical History: Cancer Additional Family Medical History / Comment(s): Mother had lung cancer. Medications and Allergies Home Medications Medication Instructions Recorded Confirmed Type Tamsulosin [Flomax] 0.4 mg PO HS 12/01/13 08/14/16 History Acetaminophen/Diphenhydramine 2 tab PO HS 07/17/16 08/14/16 History [Tylenol PM 500-25mg] Ipratropium [place] 0.06%Nasal 1 spray EA NOSTRIL RT-BID PRN 07/17/16 08/14/16 History [Atrovent Nasal 0.06%] Albuterol Inhaler [Ventolin Hfa 2 puff INHALATION RT-QID PRN 08/14/16 08/14/16 History Inhaler] Folic Acid 1 mg PO DAILY 08/14/16 08/14/16 History Lisinopril [Prinivil] 20 mg PO DAILY 08/14/16 08/14/16 History Melatonin 10 mg PO HS 08/14/16 08/14/16 History Multivitamins, Thera [Multivitamin] 1 tab PO DAILY 08/14/16 08/14/16 History Allergies Allergy/AdvReac Type Severity Reaction Status Date / Time No Known Allergies Allergy Verified 08/14/16 18:24 Physical Exam Vitals: Vital Signs Temp Pulse Pulse Resp BP Pulse Ox 08/15/16 16:00 97.5 F L 77 88 16 138/56 99 08/15/16 15:32 78 08/15/16 15:23 73 08/15/16 15:00 79 14 116/54 100 08/15/16 14:00 86 14 138/63 96 08/15/16 13:00 70 12 119/60 99 08/15/16 12:00 71 88 10 L 146/65 99 08/15/16 11:31 66 08/15/16 11:17 68 08/15/16 11:00 97.4 F L 69 13 119/60 100 08/15/16 10:00 70 14 100/49 96 08/15/16 09:00 73 13 146/61 97 08/15/16 08:00 97.3 F L 72 88 14 114/67 100 08/15/16 07:00 75 15 132/68 100 08/15/16 06:00 79 22 148/71 100 08/15/16 05:00 78 24 153/68 99 08/15/16 04:00 98.0 F 78 15 136/64 100 08/15/16 03:00 85 14 146/72 100 08/15/16 02:00 69 12 142/65 99 08/15/16 01:00 65 12 95/49 100 08/15/16 00:00 97.7 F 71 88 19 80/49 100 08/14/16 23:00 90 13 136/77 91 L 08/14/16 22:00 98 7 L 104/64 95 08/14/16 21:54 97.5 F L 88 18 97 08/14/16 21:44 98 08/14/16 21:30 97.2 F L 92 18 155/75 95 08/14/16 21:02 95 18 157/68 95 Intake and Output 08/15/16 08/15/16 08/15/16 06:59 14:59 22:59 Intake Total 200 110 40 Output Total 3400 1730 105 Balance -3200 -1620 -65 Intake: IV 200 Sodium Chloride 3%( 200 Hypertonic) 120 ml @ 40 mls/hr IV .Q3H ONE Rx#: [id number] Intake, IV Titration 50 Amount Desmopressin Inj 1 mcg In 50 Sodium Chloride 0.9% 50 ml @ 200 mls/hr IVPB ONCE ONE Rx#:[id number] Oral 60 40 Output: Urine 3400 1730 105 Other: Voiding Method Indwelling Catheter Indwelling Catheter Indwelling Catheter Weight 94.6 kg 94.6 kg 94.6 kg Patient Weight 08/16/16 06:59 Weight 94.6 kg - Constitutional pt was very tired, required loud voice and moderate tactile stimulation to be aroused and he drifted back to sleep rather quickly-snoring, but he did follow commands General appearance: average body habitus, no acute distress - EENT Eyes: anicteric sclerae, normal appearance ENT: normal oropharynx - Neck Neck: no lymphadenopathy - Respiratory Respiratory: bilateral: CTA - Cardiovascular Heart sounds: normal: S1, S2 - Gastrointestinal General gastrointestinal: no absent bowel sounds, no decreased bowel sounds, no distended, no hepatomegaly, no hyperactive bowel sounds, normal bowel sounds, no organomegaly, no rigid, no scaphoid, soft, no splenomegaly, no umbilical hernia, no ventral hernia - Integumentary Integumentary: pale - Musculoskeletal Musculoskeletal: generalized weakness - Psychiatric Pt followed commands Per nursing pt was awake, alert and ate breakfast this AM Results CBC & Chem 7: 08/15/16 03:02 08/15/16 11:02 Labs: Abnormal Lab Results - Last 24 Hours (Table) 08/14/16 08/14/16 08/15/16 Range/Units 21:39 22:32 03:02 WBC 3.4 L (3.8-10.6) k/uL RBC 2.37 L (4.30-5.90) m/uL Hgb 7.9 L (13.0-17.5) gm/dL Hct 22.7 L (39.0-53.0) % Lymphocytes # (Manual) 0.3 L (1.0-4.8) k/uL Sodium 116 L* (137-145) mmol/L Chloride 82 L (98-107) mmol/L BUN 29 H (9-20) mg/dL Glucose 142 H (74-99) mg/dL POC Glucose (mg/dL) 173 H (75-99) mg/dL % Saturation (20-50) % 08/15/16 08/15/16 08/15/16 Range/Units 03:02 07:05 08:19 WBC (3.8-10.6) k/uL RBC (4.30-5.90) m/uL Hgb (13.0-17.5) gm/dL Hct (39.0-53.0) % Lymphocytes # (Manual) (1.0-4.8) k/uL Sodium 119 L* 125 L (137-145) mmol/L Chloride 83 L 90 L (98-107) mmol/L BUN 29 H 25 H (9-20) mg/dL Glucose 126 H 136 H (74-99) mg/dL POC Glucose (mg/dL) 154 H (75-99) mg/dL % Saturation (20-50) % 08/15/16 Range/Units 11:02 WBC (3.8-10.6) k/uL RBC (4.30-5.90) m/uL Hgb (13.0-17.5) gm/dL Hct (39.0-53.0) % Lymphocytes # (Manual) (1.0-4.8) k/uL Sodium 126 L (137-145) mmol/L Chloride 90 L (98-107) mmol/L BUN 25 H (9-20) mg/dL Glucose 122 H (74-99) mg/dL POC Glucose (mg/dL) (75-99) mg/dL % Saturation 18.5 L (20-50) % Chest x-ray: report reviewed CT Scan - head: report reviewed Assessment and Plan (1) Antineoplastic chemotherapy induced anemia Narrative/Plan: No transfusion at this time, labs in AM Status: Chronic (2) Change in mental status Narrative/Plan: CT brain report reviewed, no evidence of malignancy. Pt mental status improved with correction of hyponatremia. Status: Acute (3) Hyponatremia Narrative/Plan: Nephrology following. Exact cause of hyponatremia not clear, combination of conditions-dehydration, SIADH. Pt current chemotherapy regimen is not typically associated with low Na+ levels and his particular malignancy is not usually a common cause of SIADH. Pt was hyponatremic when he was hospitalized last month for similar symptoms. We look for Nephrology recommendations. Status: Acute (4) Carcinoma of base of tongue Narrative/Plan: Pt is currently receiving treatment. He will follow up with Dr. Barnard before resuming any treatment, with close monitoring of Na+ levels outpatient. Status: Chronic
[2016-08-15 19:18] LABS: Anion Gap 11 mmol/L; Blood Urea Nitrogen 25 mg/dL (9-20); Calcium 9.9 mg/dL (8.4-10.2); Carbon Dioxide 27 mmol/L (22-30); Chloride 88 mmol/L (98-107); Glucose 173 mg/dL (74-99); Non-African American GFR(MDRD) >60 (>60 ml/min/1.73 sqM); Potassium 5.7 mmol/L (3.5-5.1); Sodium 126 mmol/L (137-145)
[2016-08-15] MEDS ORDERED: INSULIN REGULAR 100 UNIT/ML VIAL IV ONE (20:44)
[2016-08-15] MEDS ORDERED: DEXTROSE 50%-WATER 50 ML SYRINGE IVP STA (20:44)
[2016-08-15 21:14] LABS: Glucose,Whole Blood 165 mg/dL (75-99)
[2016-08-15] MEDS: ACETAMINOPHEN TAB 500 MG TAB PO SCH (21:15)
[2016-08-15] MEDS: MELATONIN 5 MG TABLET PO SCH (21:16)
[2016-08-15] MEDS: diphenhydrAMINE 25 MG CAP PO SCH (21:16)
[2016-08-15] MEDS: TAMSULOSIN 0.4 MG CAP.ER.24H PO SCH (21:16)
[2016-08-16 04:39] LABS: Basophils % (A) 0 %; CH 34.8; CHCM 35.3; Eosinophils % (A) 1 %; HCT 25.1 % (39.0-53.0); HDW 2.76; HGB 8.4 gm/dL (13.0-17.5); Luc # (Auto) 0.17; Luc % (Auto) 4; Lymphocytes # (A) 0.4 k/uL (1.0-4.8); Lymphocytes % (A) 10 %; MCHC 33.4 g/dL (31.0-37.0); MCV 98.6 fL (80.0-100.0); Mean Platelet Volume 7.2; Monocytes # (A) 0.3 k/uL (0-1.0); Monocytes % (A) 6 %; Neutrophils # (A) 3.4 k/uL (1.3-7.7); Neutrophils % (A) 80 %; RBC 2.55 m/uL (4.30-5.90); RDW 14.1 % (11.5-15.5); WBC 4.2 k/uL (3.8-10.6); WBC (Perox) 4.52
[2016-08-16 04:55] LABS: Anion Gap 10 mmol/L; Blood Urea Nitrogen 28 mg/dL (9-20); Calcium 9.8 mg/dL (8.4-10.2); Carbon Dioxide 25 mmol/L (22-30); Chloride 91 mmol/L (98-107); Glucose 120 mg/dL (74-99); Magnesium 1.7 mg/dL (1.6-2.3); Non-African American GFR(MDRD) 59 (>60 ml/min/1.73 sqM); Phosphorous 4.8 mg/dL (2.5-4.5); Potassium 5.3 mmol/L (3.5-5.1); Sodium 126 mmol/L (137-145)
--- NOTE | 2016-08-16 06:16 | P.CNNES ---
History of Present Illness Consult date: 08/15/16 Requesting physician: Deborah Du Reason for Consult: Altered Mental Status Chief complaint: Confusion History of Present Illness: Dr. Du requested neurology consult on the patient, Mister Mendez, a 76-year- old male, that presented by ambulance to the emergency department with changes in mental status on August 14, 2016 approximately 5:30 in the evening. EMS stated that the patient was alert and oriented the morning of August 14, 2016 but became increasingly confused and noncoherent but the exact time of onset is unknown. He was quite confused at arrival. He was making rambling statements, repeating words and had disconnected thoughts. He did recognize his children at times and did appear to cooperate with them while in the emergency department per staff. 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 He has had previous episodes of syncope with renal failure and hyponatremia in the past 30-60 days. Patient has also had a history of influenza type A. During that occurrence patient was diagnosed or thought to have a combination of hypovolemia hyponatremia and syndrome of inappropriate antidiuretic hormone. Patient was treated and improved significantly at that time. His sodium at treatment was 129 and was discharged home. Family was tending to the patient since discharge with food and care. On August 14, they noted that the patient was extremely confused, exhibiting abnormal behavior, combative, restless and EMS was summoned. On initial contact today, the patient is supine in bed, eating his dinner and is in no acute distress. Review of Systems all systems not previously noted above are negative. Past Medical History Past Medical History: Cancer, Diabetes Mellitus, Hypertension Additional Past Medical History / Comment(s): Squamous cell carcinoma of the base of the tongue, initially diagnosed in 2013 and she with chemoradiation therapy and subsequently the patient was found to have metastatic disease in his liver and currently on further treatment with chemotherapy and he has received first cycle on 04/11/2017, prostate cancer treated with radiation therapy in 2006, skin cancer, resected, peripheral neuropathy, diabetes mellitus , hypertension, recent hospitalization for syncope, recent hospitalization for influenza A, chronic anemia along with a component of leukopenia probably related to previous chemotherapy intake. History of Any Multi-Drug Resistant Organisms: None Reported Past Surgical History: Orthopedic Surgery Additional Past Surgical History / Comment(s): 06/21/16 power port placed, LEFT ROTATOR CUFF, skin cancer removal from L forearm, colonoscopy. Past Anesthesia/Blood Transfusion Reactions: No Reported Reaction Past Psychological History: No Psychological Hx Reported Additional Psychological History / Comment(s): Pt resides alone. He is a . He uses no assistive device. He drives. Smoking Status: Former smoker Past Alcohol Use History: Daily Additional Past Alcohol Use History / Comment(s): QUIT SMOKING IN , FOR 60 YRS, 1-2PPD. Pt states he was drinking on a daily basis but has not had any alcohol to drink since 06/22/16. Past Drug Use History: None Reported - Past Family History Father Family Medical History: Cancer Additional Family Medical History / Comment(s): Father had lung cancer. Mother Family Medical History: Cancer Additional Family Medical History / Comment(s): Mother had lung cancer. Medications and Allergies Home Medications Medication Instructions Recorded Confirmed Type Tamsulosin [Flomax] 0.4 mg PO HS 12/01/13 08/14/16 History Acetaminophen/Diphenhydramine 2 tab PO HS 07/17/16 08/14/16 History [Tylenol PM 500-25mg] Ipratropium [place] 0.06%Nasal 1 spray EA NOSTRIL RT-BID PRN 07/17/16 08/14/16 History [Atrovent Nasal 0.06%] Albuterol Inhaler [Ventolin Hfa 2 puff INHALATION RT-QID PRN 08/14/16 08/14/16 History Inhaler] Folic Acid 1 mg PO DAILY 08/14/16 08/14/16 History Lisinopril [Prinivil] 20 mg PO DAILY 08/14/16 08/14/16 History Melatonin 10 mg PO HS 08/14/16 08/14/16 History Multivitamins, Thera [Multivitamin] 1 tab PO DAILY 08/14/16 08/14/16 History Allergies Allergy/AdvReac Type Severity Reaction Status Date / Time No Known Allergies Allergy Verified 08/14/16 18:24 Physical Examination - Vital Signs Vital Signs: Vital Signs Temp Pulse Pulse Resp BP Pulse Ox 08/16/16 05:00 73 12 115/56 100 08/16/16 04:00 97.5 F L 74 14 94/44 100 08/16/16 03:00 86 16 119/64 99 08/16/16 02:00 72 19 85/45 97 08/16/16 01:00 72 19 103/54 100 08/16/16 00:00 97.3 F L 59 L 14 106/46 98 08/15/16 23:00 66 19 131/63 98 08/15/16 22:00 86 16 102/63 100 08/15/16 21:00 71 16 119/60 100 08/15/16 20:00 98.4 F 92 21 132/55 96 08/15/16 19:40 93 08/15/16 19:31 90 08/15/16 19:00 92 29 H 152/61 93 L 08/15/16 18:00 76 14 135/63 99 08/15/16 17:00 71 14 117/66 99 08/15/16 16:00 97.5 F L 77 88 16 138/56 99 08/15/16 15:32 78 08/15/16 15:23 73 08/15/16 15:00 79 14 116/54 100 08/15/16 14:00 86 14 138/63 96 08/15/16 13:00 70 12 119/60 99 08/15/16 12:00 71 88 10 L 146/65 99 08/15/16 11:31 66 08/15/16 11:17 68 08/15/16 11:00 97.4 F L 69 13 119/60 100 08/15/16 10:00 70 14 100/49 96 08/15/16 09:00 73 13 146/61 97 08/15/16 08:00 97.3 F L 72 88 14 114/67 100 08/15/16 07:00 75 15 132/68 100 Intake and Output 08/15/16 08/15/16 08/16/16 14:59 22:59 06:59 Intake Total 110 80 Output Total 1730 410 229 Balance -2919 -467 -707 Intake: Intake, IV Titration 50 Amount Desmopressin Inj 1 mcg In 50 Sodium Chloride 0.9% 50 ml @ 200 mls/hr IVPB ONCE ONE Rx#:[id number] Oral 60 80 Output: Urine 1730 410 229 Other: Voiding Method Indwelling Catheter Indwelling Catheter Indwelling Catheter Weight 94.6 kg 94.6 kg 79 kg Patient Weight 08/16/16 06:59 Weight 79 kg Constitutional: AOx3, cooperative Head: NC/AT Throat: Supple, no masses Respiratory: No increased work of breathing Cardiac: Regular rate and Rhythm GI: non tender, non distended Musculoskeletal: Wine Pasteurizer strengths are equal bilaterally 5/5, Lower extremity strengths are equal bilaterally at 5/5. Neurological: CN II-XII in tact, patient was AOx3, speech and language are normal, no unilateralizing weakness, no seizure activity note on physical exam. Sensation was normal. Integementary: no rash, no erythema Psychiatric: mood and affect appropriate Results - Laboratory Findings CBC and BMP: 08/16/16 04:10 08/16/16 04:10 Abnormal Lab Findings: Abnormal Labs 08/14/16 08/14/16 08/15/16 21:39 22:32 03:02 WBC 3.4 L RBC 2.37 L Hgb 7.9 L Hct 22.7 L Lymphocytes # Lymphocytes # (Manual) 0.3 L Sodium 116 L* Potassium Chloride 82 L BUN 29 H Glucose 142 H POC Glucose (mg/dL) 173 H Phosphorus % Saturation 08/15/16 08/15/16 08/15/16 03:02 07:05 08:19 WBC RBC Hgb Hct Lymphocytes # Lymphocytes # (Manual) Sodium 119 L* 125 L Potassium Chloride 83 L 90 L BUN 29 H 25 H Glucose 126 H 136 H POC Glucose (mg/dL) 154 H Phosphorus % Saturation 08/15/16 08/15/16 08/15/16 11:02 18:55 21:12 WBC RBC Hgb Hct Lymphocytes # Lymphocytes # (Manual) Sodium 126 L 126 L Potassium 5.7 H Chloride 90 L 88 L BUN 25 H 25 H Glucose 122 H 173 H POC Glucose (mg/dL) 165 H Phosphorus % Saturation 18.5 L 08/16/16 08/16/16 08/16/16 00:04 04:10 04:10 WBC RBC 2.55 L Hgb 8.4 L Hct 25.1 L Lymphocytes # 0.4 L Lymphocytes # (Manual) Sodium 126 L 126 L Potassium 5.3 H Chloride 91 L BUN 28 H Glucose 120 H POC Glucose (mg/dL) Phosphorus 4.8 H % Saturation Assessment and Plan (1) Change in mental status Status: Acute (2) Hyponatremia Status: Acute Plan: Assessment and Plan: 1. Hyponatremia/altered mental status: patient was determined to be hyponatremic via confirmation by lab work analysis. Patient is currently undergoing replacement therapy. At time of the physical examination contact, nursing staff reports that the most recent sodium level was 126. They report that he is improving overall and is much more alert and cognitively astute since replacement therapy began. However, they stated that he is not returned to baseline yet. based on the improvement with replacement therapy, the patient's altered mental status is most likely related to his hyponatremic status on arrival presentation at the emergency department. He does have a history consistent with hyponatremia and positive response with therapy. CT of the brain noted chronic small vessel ischemic disease but was otherwise unremarkable. Status: Neurology will continue to follow and provide further treatment options and recommendations as needed or warranted. If the patient does return to baseline after sodium levels are returned to within normal/acceptable range, the patient can be cleared from a neurological standpoint. Note: Consultation note was delayed due to Internet failure/data transmission. Patient was evaluated on August 15, 2016 at approximately 1400 hrs. I discussed the patient's pertinent medical information with Dr. Ott. He agrees with the plan of care as implemented.
[2016-08-16] MEDS ORDERED: Magnesium Replacement Protocol 1 EACH MISC MISCELLANE PRN (06:59)
[2016-08-16] MEDS: MAGNESIUM SULFATE-D5W PMX 1 GM in DEXTROSE/WATER 1 100ML.BAG IVPB SCH ×2 (07:32→09:12)
[2016-08-16] MEDS: LISINOPRIL 20 MG TAB PO SCH (07:59)
[2016-08-16] MEDS: metFORMIN 500 MG TAB PO SCH ×2 (07:59→21:06)
[2016-08-16] MEDS: PANTOPRAZOLE 40 MG/10 ML VIAL IV SCH (07:59)
[2016-08-16] MEDS: ALBUTEROL NEBULIZED 2.5 MG/3 ML INHALATION SCH ×5 (08:15→19:16)
[2016-08-16] MEDS ORDERED: SODIUM CHLORIDE 0.9% 1,000 ML IV SCH (09:15)
[2016-08-16] MEDS: MULTIVITAMINS, THERA 1 EACH TAB PO SCH (12:13)
[2016-08-16] MEDS: FOLIC ACID 1 MG TAB PO SCH (12:13)
--- NOTE | 2016-08-16 12:34 | P.PN ---
Subjective Principal diagnosis: 76-year-old male patient who presented to the hospital yesterday because of change in mental status. At that point the patient was found to be profoundly hyponatremic and his sodium level was 114. He had a similar admission approximately a month ago with a sodium levels were noted to be low however did not to this extent. The patient was quite lethargic and confused. In fact he was getting restless and yelling and thrashing throughout the night. He was given Haldol and later on Ativan to control his agitation. In terms of his hyponatremia, the patient was started on hypertonic saline at 3% at the rate of 40 mL an hour. Overnight his sodium level gradually came up and earlier this morning it came up to 125. This was a concern due to a rapid correction of the sodium level and the findings on the case and the patient will be given a dose of DDAVP. Nephrology is on the case in this regard. Note that the swelling increased urine output and at one point the patient was producing up to 300-400 mL on an hourly basis which has another concern. Note that along with this correction of the sodium level, the patient improved and his mentation improved significantly to the point where the patient woke up this morning and is following commands and answering questions and he was appropriate to place and people. He was taken hydrochlorothiazide in the past not for now. He is known to have a malignancy and the base of his tongue which is of a squamous cell type and the patient has undergone previous chemoradiation therapy. His disease is felt to be metastatic at this point during that he has a lesion in the liver that was found to be consistent with squamous cell carcinoma. He is under the care of Dr. Barnard. No signs of any dehydration. Apparently was drinking and eating and he was quite active prior to his hospital admission. His renal function was stable with a creatinine of 1.1. No headache. No head trauma. Chest x-ray from this current admission shows no acute abnormalities. CAT scan of the brain showed no acute intracranial hemorrhage or midline shift and there is moderate diffuse age-related cerebral atrophy. In terms of further workup, the patient was found to have a urine osmolarity of 314 and urine random sodium of 47. UA is essentially negative at this point. Nephrology also saw the patient and dictating that the hyponatremia is most likely secondary to excessive water intake compared to solute. The patient is seen again today 08/16/2016 in follow-up. He is awake and alert in no acute distress he is oriented 3. His sodium level has stayed steady at 126 the past 24 hours. He did receive a dose of desmopressin yesterday. He currently has no complaints. No shortness of breath, cough or congestion. No discomfort. No dizziness or lightheadedness. He remains in a -300 and output balance. He is maintaining good O2 saturations in the mid 90s on room air. He' s been hemodynamically stable. Objective - Vital Signs Vital signs: Vital Signs Temp 98.1 F 08/16/16 12:00 Pulse 78 08/16/16 12:00 Resp 16 08/16/16 12:00 BP 114/60 08/16/16 12:00 Pulse Ox 96 08/16/16 12:00 Intake & Output 08/15/16 08/16/16 08/16/16 18:59 06:59 18:59 Intake Total 150 40 320 Output Total 1910 539 587 Balance -1760 -499 -267 Weight 94.6 kg 79 kg Intake: Intake, IV Titration 50 320 Amount Desmopressin Inj 1 mcg In 50 Sodium Chloride 0.9% 50 ml @ 200 mls/hr IVPB ONCE ONE Rx#:[id number] Magnesium Sulfate-D5w Pmx 200 1 gm In Dextrose/Water 1 100ml.bag @ 100 mls/hr IVPB Q1H [facility] Rx#: [id number] Sodium Chloride 0.9% 1, 120 000 ml @ 60 mls/hr IV . [id number] [facility] Rx#:[id number] Oral 100 40 Output: Urine 1910 539 587 Other: Voiding Method Indwelling Catheter Indwelling Catheter Indwelling Catheter - Exam Head exam was generally normal. There was no scleral icterus or corneal arcus. Mucous membranes were moist.Neck was supple and without jugular venous distension, thyromegaly, or carotid bruits. Carotids were easily palpable bilaterally. There was no adenopathy.Lungs were clear to auscultation and percussion, and with normal diaphragmatic excursion. No wheezes or rales were noted. Cardiac exam revealed the PMI to be normally situated and sized. The rhythm was regular and no extrasystoles were noted during several minutes of auscultation. The first and second heart sounds were normal and physiologic splitting of the second heart sound was noted. There were no murmurs, rubs, clicks, or gallops.Abdominal exam revealed normal bowel sounds. The abdomen was soft, non-tender, and without masses, organomegaly, or appreciable enlargement of the abdominal aorta.Examination of the extremities revealed easily palpable radial, femoral and pedal pulses. There was no cyanosis, clubbing or edema. Neurologic exam is nonfocal and the patient is moving all 4 extremities without any major limitation. - Labs CBC & Chem 7: 08/16/16 04:10 08/16/16 04:10 Labs: Abnormal Lab Results - Last 24 Hours (Table) 08/15/16 08/15/16 08/16/16 Range/Units 18:55 21:12 00:04 RBC (4.30-5.90) m/uL Hgb (13.0-17.5) gm/dL Hct (39.0-53.0) % Lymphocytes # (1.0-4.8) k/uL Sodium 126 L 126 L (137-145) mmol/L Potassium 5.7 H (3.5-5.1) mmol/L Chloride 88 L (98-107) mmol/L BUN 25 H (9-20) mg/dL Glucose 173 H (74-99) mg/dL POC Glucose (mg/dL) 165 H (75-99) mg/dL Phosphorus (2.5-4.5) mg/dL 08/16/16 08/16/16 Range/Units 04:10 04:10 RBC 2.55 L (4.30-5.90) m/uL Hgb 8.4 L (13.0-17.5) gm/dL Hct 25.1 L (39.0-53.0) % Lymphocytes # 0.4 L (1.0-4.8) k/uL Sodium 126 L (137-145) mmol/L Potassium 5.3 H (3.5-5.1) mmol/L Chloride 91 L (98-107) mmol/L BUN 28 H (9-20) mg/dL Glucose 120 H (74-99) mg/dL POC Glucose (mg/dL) (75-99) mg/dL Phosphorus 4.8 H (2.5-4.5) mg/dL Assessment and Plan Plan: Assessment 1 severe hyponatremia with secondary change in mental status. Rule out hyponatremia secondary to excessive fluid intake compared to solute. Underlying SIADH is felt to be less likely at this point. The patient is producing significant amount of urine output and there may be a component of rapid correction of his sodium level up to 125. Nephrology is inclined to give the patient dose of desmopressin. He is seen again today 08/16/2016 in follow-up. He is awake and alert in no acute distress. His sodium level has remained at 126 the past 24 hours. He did receive 1 dose of desmopressin yesterday. 2 change in mental status, recovered. 3 squamous cell carcinoma of the base of the tongue, metastatic with liver involvement currently on systemic chemotherapy 4 chronic anemia 5 diabetes mellitus type 2 6 hypertension 7 hypperlipidemia 8 prostate cancer with previous radiation therapy approximately 2006 Plan The patient is stable from the pulmonary and critical care standpoint. He has 0.9 normal saline at 60 mls/hour currently. Repeat sodium level is due at 2 PM today. If trending gently upwards we will transfer him to the regular medical floor. We will continue to follow.
[2016-08-16 14:04] LABS: Anion Gap 10 mmol/L; Blood Urea Nitrogen 29 mg/dL (9-20); Calcium 9.3 mg/dL (8.4-10.2); Carbon Dioxide 25 mmol/L (22-30); Chloride 90 mmol/L (98-107); Glucose 126 mg/dL (74-99); Non-African American GFR(MDRD) 59 (>60 ml/min/1.73 sqM); Potassium 5.2 mmol/L (3.5-5.1); Sodium 125 mmol/L (137-145)
[2016-08-16] MEDS ORDERED: BACITRACIN 500 UNIT/GM OINT 28.4 GM TUBE TOPICAL ONE (14:30)
--- NOTE | 2016-08-16 16:22 | PN ---
Patient is seen for followup for hyponatremia. His sodium level was 114 on admission. He was maintained for a short period of time on 3% saline, which was then discontinued. Serum sodium level has been at 126. Patient had been on chemotherapy, which is now on hold since his hospitalization. Mentation has improved significantly as well. Patient's mentation is back to baseline. On examination, blood pressure is 138/65, heart rate 101 per minute. He is afebrile. EXAMINATION OF THE HEART: S1 and S2. EXAMINATION OF THE LUNGS: Bilateral breath sounds are heard. ABDOMEN: Soft, nontender. Examination of lower extremities shows no significant edema. ACCOUNT RELATIONSHIP MANAGER exam is grossly intact. Labs show sodium 126, potassium 5.3, chloride 91, BUN 28, serum creatinine 1.2. Hemoglobin of 8.4 g/dL. ASSESSMENT: 1. Hypovolemic hyponatremia, currently improved. I will add normal saline and repeat another sodium in about 4 hours. The urine osmolality was at 314 with random urine sodium of 47, which was not significantly low; however, if the serum sodium worsens with saline, then we will have to restrict his fluids. 2. Hypertension, currently controlled. 3. Squamous cell cancer of the base of the tongue with metastases to the liver, maintained on chemotherapy. 4. History of prostatic carcinoma with radiation therapy. PLAN: Start normal saline and repeat sodium level in about 4 hours.
[2016-08-16 17:59] LABS: Anion Gap 11 mmol/L; Blood Urea Nitrogen 29 mg/dL (9-20); Calcium 9.4 mg/dL (8.4-10.2); Carbon Dioxide 25 mmol/L (22-30); Chloride 87 mmol/L (98-107); Glucose 143 mg/dL (74-99); Non-African American GFR(MDRD) 57 (>60 ml/min/1.73 sqM); Potassium 6.1 mmol/L (3.5-5.1); Sodium 123 mmol/L (137-145)
[2016-08-16] MEDS ORDERED: SODIUM POLYSTYRENE SULFONATE 15 GM/60 ML BOTTLE PO STA (18:36)
[2016-08-16] MEDS ORDERED: FUROSEMIDE 10 MG/ML 4 ML VIAL IV STA (18:36)
--- NOTE | 2016-08-16 19:33 | PN ---
DATE OF SERVICE: 08/16/2016 This 76-year-old gentleman who was admitted with significant change in mental status and severe hyponatremia was given 3% saline. His sodium has improved to 126. Neurological condition has improved significantly. Neurology is following the patient closely. Potassium is 5.2 at this time and hemoglobin is 8.4. Glucose is 126. Past medical history reviewed. REVIEW OF SYSTEMS: CARDIOVASCULAR SYSTEM: No angina, palpitations. RESPIRATORY SYSTEM: As mentioned earlier. GI: As mentioned earlier. NERVOUS SYSTEM: As mentioned earlier. Current medications are reviewed and include: 1. Tylenol 650 q.4 p.r.n. 2. Tylenol 1000 mg daily. 3. Ventolin 2.5 q.i.d. 4. Xanax 0.25 q.6. 5. Benadryl 25 mg at bedtime. 6. Folic acid 1 mg daily. 7. Haldol 5 mg q.4 p.r.n. 8. Atrovent. 9. Zestril 20 mg daily. 10. Ativan 1 mg q.4 p.r.n. 11. Melatonin 10 mg at bedtime. 12. Glucophage 1000 mg p.o. b.i.d. 13. Multivitamins 1 p.o. daily. 14. Narcan 0.2 q.2 p.r.n. 15. Protonix 40 mg daily. 16. Flomax 0.4 daily. PHYSICAL EXAMINATION: Patient respiratory rate 16, temperature normal, pulse ox 99% on room air. HEENT: Conjunctivae normal. Oral mucosa moist. NECK: No jugular venous distention. No carotid bruit. No lymph node enlargement. CARDIOVASCULAR SYSTEM: S1, S2 muffled. RESPIRATORY SYSTEM: Breath sounds diminished at the bases. A few rhonchi. No crackles. ABDOMEN: Soft. Non-tender. No mass palpable. LEGS: No edema. No swelling. NERVOUS SYSTEM: Higher functions as mentioned earlier. Moves all 4 limbs. Mild diffuse weakness. LYMPHATICS: No lymph node palpable in neck, axillae or groin. SKIN: No ulcer, rash, bleeding. LABS: WBC 4.2. Hemoglobin 8.4. Sodium 125. Potassium 5.2. ASSESSMENT: 1. Change in mental status, metabolic encephalopathy, possibly toxic metabolic encephalopathy secondary to hyponatremia. 2. Hyperchloremia. 3. Possible syndrome of inappropriate antidiuretic hormone or of diminished oral intake. 4. Increased random blood sugar. 5. Increased creatine kinase. 6. Anemia, normocytic; anemia of chronic disease. 7. 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 8. Gait dysfunction. 9. History of recent hyponatremia, possibly secondary to hypovolemia as well as syndrome of inappropriate antidiuretic hormone. 10. History of renal failure. 11. History of orthostatic hypotension. 12. History of influenza. 13. Diabetes mellitus, type 2. 14. FULL CODE. RECOMMENDATIONS AND DISCUSSION: I recommend to continue with the current medications, continue with symptomatic treatment, monitor sodium closely. PT and OT evaluation. Possible ECF rehab. Otherwise, closely monitor. Repeat labs will be ordered. We will follow the patient closely with Neurology and Nephrology. Guarded prognosis. Further recommendations to follow. MTDD
--- NOTE | 2016-08-16 19:51 | P.PN ---
Subjective Principal diagnosis: Hyponatremia patient is 76-year-old male being followed by neurology for hyponatremia. He has been on sodium replacement therapy with increasing sodium levels noted for the last 2 days. Patient is alert and oriented 3, semireclined in bed in no acute distress. He appears much more alert than yesterday which was an improvement over the previous day as well. It does appear that the patient is approaching baseline. Objective - Vital Signs Vital signs: Vital Signs Temp 98.1 F 08/16/16 16:00 Pulse 82 08/16/16 19:27 Resp 11 L 08/16/16 19:00 BP 119/53 08/16/16 19:00 Pulse Ox 98 08/16/16 19:00 Intake & Output 08/16/16 08/16/16 08/17/16 06:59 18:59 06:59 Intake Total 40 1090 Output Total 539 1007 100 Balance -499 83 -100 Weight 79 kg Intake: IV 400 Sodium Chloride 0.9% 1, 400 000 ml @ 100 mls/hr IV . Q10H [facility] Rx#:[id number] Intake, IV Titration 440 Amount Magnesium Sulfate-D5w Pmx 200 1 gm In Dextrose/Water 1 100ml.bag @ 100 mls/hr IVPB Q1H [facility] Rx#: [id number] Sodium Chloride 0.9% 1, 240 000 ml @ 100 mls/hr IV . Q10H [facility] Rx#:[id number] Oral 40 250 Output: Urine 539 1007 100 Other: Voiding Method Indwelling Catheter Indwelling Catheter - Exam Constitutional: AOx3, cooperative Head: NC/AT Throat: Supple, no masses Respiratory: No increased work of breathing Cardiac: Regular rate and Rhythm GI: non tender, non distended Musculoskeletal: Trauma Counsellor strengths are equal bilaterally 5/5, Lower extremity strengths are equal bilaterally at 5/5. Neurological: CN II-XII in tact, patient was AOx3, speech and language are normal, no unilateralizing weakness, no seizure activity note on physical exam. Sensation was normal. Integementary: no rash, no erythema Psychiatric: mood and affect appropriate - Labs CBC & Chem 7: 08/16/16 04:10 08/16/16 17:33 Labs: Abnormal Lab Results - Last 24 Hours (Table) 08/15/16 08/16/16 08/16/16 Range/Units 21:12 00:04 04:10 RBC 2.55 L (4.30-5.90) m/uL Hgb 8.4 L (13.0-17.5) gm/dL Hct 25.1 L (39.0-53.0) % Lymphocytes # 0.4 L (1.0-4.8) k/uL Sodium 126 L (137-145) mmol/L Potassium (3.5-5.1) mmol/L Chloride (98-107) mmol/L BUN (9-20) mg/dL Glucose (74-99) mg/dL POC Glucose (mg/dL) 165 H (75-99) mg/dL Phosphorus (2.5-4.5) mg/dL 08/16/16 08/16/16 08/16/16 Range/Units 04:10 13:37 17:33 RBC (4.30-5.90) m/uL Hgb (13.0-17.5) gm/dL Hct (39.0-53.0) % Lymphocytes # (1.0-4.8) k/uL Sodium 126 L 125 L 123 L (137-145) mmol/L Potassium 5.3 H 5.2 H 6.1 H (3.5-5.1) mmol/L Chloride 91 L 90 L 87 L (98-107) mmol/L BUN 28 H 29 H 29 H (9-20) mg/dL Glucose 120 H 126 H 143 H (74-99) mg/dL POC Glucose (mg/dL) (75-99) mg/dL Phosphorus 4.8 H (2.5-4.5) mg/dL Assessment and Plan (1) Change in mental status Status: Acute (2) Hyponatremia Status: Acute Plan: Assessment and Plan: 1. Hyponatremia/altered mental status: patient was determined to be hyponatremic via confirmation by lab work analysis. Patient is currently undergoing replacement therapy. At time of the physical examination contact, nursing staff reports that the most recent sodium level was 129. They report that he is improving overall and is much more alert and cognitively astute since replacement therapy began. Patient is at baseline. Patient's altered mental status is most likely related to his hyponatremia. CT of the brain noted chronic small vessel ischemic disease but was otherwise unremarkable. Status: Patient is clear for discharge from a neurological standpoint. I discussed the patient's pertinent medical information with Dr. Ott. He agrees with the plan of care as implemented.
[2016-08-16] MEDS: TAMSULOSIN 0.4 MG CAP.ER.24H PO SCH (21:06)
[2016-08-16] MEDS: MELATONIN 5 MG TABLET PO SCH (21:06)
[2016-08-16] MEDS: ACETAMINOPHEN TAB 500 MG TAB PO SCH (21:06)
[2016-08-16] MEDS: diphenhydrAMINE 25 MG CAP PO SCH (21:06)
[2016-08-16 22:15] LABS: Anion Gap 11 mmol/L; Blood Urea Nitrogen 30 mg/dL (9-20); Carbon Dioxide 24 mmol/L (22-30); Chloride 85 mmol/L (98-107); Glucose 147 mg/dL (74-99); Non-African American GFR(MDRD) 52 (>60 ml/min/1.73 sqM)
[2016-08-16 22:23] LABS: Sodium 120 mmol/L (137-145)
[2016-08-16] MEDS ORDERED: SODIUM CHLORIDE 3% IV ONE (23:00)
[2016-08-16] MEDS ORDERED: [UNRECOGNIZED DRUG - OTHER] IV ONE (23:00)
[2016-08-17 04:18] LABS: Anion Gap 7 mmol/L; Blood Urea Nitrogen 30 mg/dL (9-20); Calcium 8.8 mg/dL (8.4-10.2); Carbon Dioxide 27 mmol/L (22-30); Chloride 89 mmol/L (98-107); Glucose 103 mg/dL (74-99); Magnesium 1.8 mg/dL (1.6-2.3); Non-African American GFR(MDRD) 54 (>60 ml/min/1.73 sqM); Phosphorous 4.4 mg/dL (2.5-4.5); Potassium 5.4 mmol/L (3.5-5.1); Sodium 123 mmol/L (137-145)
[2016-08-17 04:19] LABS: Aty Lym Flag Slight; CHCM 35.8; HCT 21.1 % (39.0-53.0); HDW 2.75; HGB 7.3 gm/dL (13.0-17.5); MCH 34.1 pg (25.0-35.0); MCHC 34.7 g/dL (31.0-37.0); MCV 98.2 fL (80.0-100.0); Mean Platelet Volume 7.9; RBC 2.15 m/uL (4.30-5.90); RDW 14.1 % (11.5-15.5); WBC 3.8 k/uL (3.8-10.6); WBC (Perox) 4.01
[2016-08-17 04:49] LABS: Add Differential Manual Differential
[2016-08-17 04:51] LABS: Manual Review Performed; Nucleated Red Blood Cells 0 /100 WBC (0-0); Total Cells Counted 100
[2016-08-17 04:52] LABS: Ovalocytes Present
[2016-08-17] MEDS: MAGNESIUM SULFATE-D5W PMX 1 GM in DEXTROSE/WATER 1 100ML.BAG IVPB SCH ×2 (06:02→07:35)
[2016-08-17] MEDS: ALBUTEROL NEBULIZED 2.5 MG/3 ML INHALATION SCH ×4 (08:25→19:12)
[2016-08-17] MEDS: FOLIC ACID 1 MG TAB PO SCH (09:07)
[2016-08-17] MEDS: PANTOPRAZOLE 40 MG/10 ML VIAL IV SCH (09:07)
[2016-08-17] MEDS: metFORMIN 500 MG TAB PO SCH ×2 (09:07→21:03)
[2016-08-17] MEDS: MULTIVITAMINS, THERA 1 EACH TAB PO SCH (09:07)
[2016-08-17] MEDS ORDERED: [UNRECOGNIZED DRUG - OTHER] IV ONE ×2 (09:30→21:00)
[2016-08-17] MEDS ORDERED: SODIUM CHLORIDE 3% IV ONE ×2 (09:30→21:00)
--- NOTE | 2016-08-17 10:35 | P.PN ---
Subjective Patient is seen in follow-up for hyponatremia. Patient presented with a sodium level of 114 which improved to 126 with 3% saline. However it dropped back down again to 120 and 3% was restarted last night. Sodium is 123 as of this morning and is currently maintained on 3% running at 40 mL an hour. Patient's currently sitting up in chair. He denies any chest pain or shortness of breath. His mentation is back to baseline. No vomiting or diarrhea. He is nonoliguric. Vital signs are stable. General: The patient appeared well nourished and normally developed. HEENT: Head exam is unremarkable. Neck is without jugular venous distension. LUNGS: Lungs are clear to auscultation and percussion. Breath sounds decreased. HEART: Rate and Rhythm are regular. First and second heart sounds normal. No murmurs, rubs or gallops. ABDOMEN: Abdominal exam reveals normal bowel sounds. Non-tender and non- distended. No evidence of peritonitis. EXTREMITITES: No clubbing, cyanosis, or edema. Objective - Vital Signs Vital signs: Vital Signs Temp 98.4 F 08/17/16 08:00 Pulse 70 08/17/16 08:35 Resp 20 08/17/16 08:00 BP 112/64 08/17/16 08:00 Pulse Ox 94 L 08/17/16 08:00 Intake & Output 08/16/16 08/17/16 08/17/16 18:59 06:59 18:59 Intake Total 1090 560 180 Output Total 1007 1005 580 Balance 83 -445 -400 Weight 92.4 kg Intake: IV 400 Sodium Chloride 0.9% 1, 400 000 ml @ 100 mls/hr IV . Q10H [facility] Rx#:[id number] Intake, IV Titration 440 260 180 Amount Magnesium Sulfate-D5w Pmx 200 1 gm In Dextrose/Water 1 100ml.bag @ 100 mls/hr IVPB Q1H [facility] Rx#: [id number] Magnesium Sulfate-D5w Pmx 100 100 1 gm In Dextrose/Water 1 100ml.bag @ 100 mls/hr IVPB Q1H [facility] Rx#: [id number] Sodium Chloride 0.9% 1, 240 000 ml @ 100 mls/hr IV . Q10H [facility] Rx#:[id number] Sodium Chloride 3%( 160 Hypertonic) 160 ml @ 40 mls/hr IV .Q4H [facility] Rx#: [id number] Sodium Chloride 3%( 80 Hypertonic) 160 ml @ 40 mls/hr IV .Q4H [facility] Rx#: [id number] Oral 250 300 Output: Urine 1007 1005 580 Other: Voiding Method Indwelling Catheter Indwelling Catheter Indwelling Catheter - Labs CBC & Chem 7: 08/17/16 03:47 08/17/16 08:20 Labs: Abnormal Lab Results - Last 24 Hours (Table) 08/16/16 08/16/16 08/16/16 Range/Units 13:37 17:33 21:55 RBC (4.30-5.90) m/uL Hgb (13.0-17.5) gm/dL Hct (39.0-53.0) % Lymphocytes # (Manual) (1.0-4.8) k/uL Sodium 125 L 123 L 120 L* (137-145) mmol/L Potassium 5.2 H 6.1 H (3.5-5.1) mmol/L Chloride 90 L 87 L 85 L (98-107) mmol/L BUN 29 H 29 H 30 H (9-20) mg/dL Creatinine 1.35 H (0.66-1.25) mg/dL Glucose 126 H 143 H 147 H (74-99) mg/dL 08/17/16 08/17/16 08/17/16 Range/Units 03:47 03:47 08:20 RBC 2.15 L (4.30-5.90) m/uL Hgb 7.3 L (13.0-17.5) gm/dL Hct 21.1 L (39.0-53.0) % Lymphocytes # (Manual) 0.8 L (1.0-4.8) k/uL Sodium 123 L 123 L (137-145) mmol/L Potassium 5.4 H (3.5-5.1) mmol/L Chloride 89 L (98-107) mmol/L BUN 30 H (9-20) mg/dL Creatinine 1.30 H (0.66-1.25) mg/dL Glucose 103 H (74-99) mg/dL Assessment and Plan Plan: Assessment: #1. Hyponatremia secondary to excess water intake in the setting of low solute intake. Sodium level 123 this morning. It was 114 at the time of admission on August 14 at 6 PM. #2. 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 #3. Altered mental status related to hyponatremia. Resolved. #4. Anemia. Iron deficiency present. #5. Nonoliguric acute kidney injury mostly prerenal. Creatinine 1.3 today. Baseline in the range of 1.1-1.2. Plan: Continue 3% to be run at 40 mL an hour for now. Repeat electrolytes at 11 AM today. Maintain 1 L fluid restriction. Add ensure with meals. IV Ferrlecit 125 mg IV daily for 3 days. First dose today. Avoid nephrotoxic agents and hypotensive episodes. Hold BRITTANY inhibitor for now.
[2016-08-17 11:47] LABS: Anion Gap 10 mmol/L; Blood Urea Nitrogen 28 mg/dL (9-20); Calcium 8.8 mg/dL (8.4-10.2); Carbon Dioxide 25 mmol/L (22-30); Chloride 89 mmol/L (98-107); Glucose 181 mg/dL (74-99); Non-African American GFR(MDRD) 57 (>60 ml/min/1.73 sqM); Potassium 4.7 mmol/L (3.5-5.1); Sodium 124 mmol/L (137-145)
--- NOTE | 2016-08-17 15:16 | P.PN ---
Subjective 76-year-old male patient who presented to the hospital yesterday because of change in mental status. At that point the patient was found to be profoundly hyponatremic and his sodium level was 114. He had a similar admission approximately a month ago with a sodium levels were noted to be low however did not to this extent. The patient was quite lethargic and confused. In fact he was getting restless and yelling and thrashing throughout the night. He was given Haldol and later on Ativan to control his agitation. In terms of his hyponatremia, the patient was started on hypertonic saline at 3% at the rate of 40 mL an hour. Overnight his sodium level gradually came up and earlier this morning it came up to 125. This was a concern due to a rapid correction of the sodium level and the findings on the case and the patient will be given a dose of DDAVP. Nephrology is on the case in this regard. Note that the swelling increased urine output and at one point the patient was producing up to 300-400 mL on an hourly basis which has another concern. Note that along with this correction of the sodium level, the patient improved and his mentation improved significantly to the point where the patient woke up this morning and is following commands and answering questions and he was appropriate to place and people. He was taken hydrochlorothiazide in the past not for now. He is known to have a malignancy and the base of his tongue which is of a squamous cell type and the patient has undergone previous chemoradiation therapy. His disease is felt to be metastatic at this point during that he has a lesion in the liver that was found to be consistent with squamous cell carcinoma. He is under the care of Dr. Barnard. No signs of any dehydration. Apparently was drinking and eating and he was quite active prior to his hospital admission. His renal function was stable with a creatinine of 1.1. No headache. No head trauma. Chest x-ray from this current admission shows no acute abnormalities. CAT scan of the brain showed no acute intracranial hemorrhage or midline shift and there is moderate diffuse age-related cerebral atrophy. In terms of further workup, the patient was found to have a urine osmolarity of 314 and urine random sodium of 47. UA is essentially negative at this point. Nephrology also saw the patient and dictating that the hyponatremia is most likely secondary to excessive water intake compared to solute. The patient is seen again today 08/16/2016 in follow-up. He is awake and alert in no acute distress he is oriented 3. His sodium level has stayed steady at 126 the past 24 hours. He did receive a dose of desmopressin yesterday. He currently has no complaints. No shortness of breath, cough or congestion. No discomfort. No dizziness or lightheadedness. He remains in a -300 and output balance. He is maintaining good O2 saturations in the mid 90s on room air. He' s been hemodynamically stable. The patient is seen again today 08/17/2016 in follow-up in the intensive care unit. He is currently sitting up in the chair at the bedside. He is awake and alert in no acute distress. He denies any significant weakness, dizziness or lightheadedness. His sodium had dropped to 120 last evening and 3% hypertonic saline was transfused at 40 miles per hour. His current sodium level is 124 and the transfusion has been stopped. Iron has been added in regards to his iron deficiency anemia. Objective - Vital Signs Vital signs: Vital Signs Temp 98.2 F 08/17/16 12:00 Pulse 94 08/17/16 14:00 Resp 19 08/17/16 14:00 BP 125/58 08/17/16 14:00 Pulse Ox 95 08/17/16 14:00 Intake & Output 08/16/16 08/17/16 08/17/16 18:59 06:59 18:59 Intake Total 1090 560 410 Output Total 1007 1005 1280 Balance 83 445 -870 Weight 92.4 kg Intake: IV 400 Sodium Chloride 0.9% 1, 400 000 ml @ 100 mls/hr IV . Q10H [facility] Rx#:[id number] Intake, IV Titration 440 260 260 Amount Magnesium Sulfate-D5w Pmx 200 1 gm In Dextrose/Water 1 100ml.bag @ 100 mls/hr IVPB Q1H [facility] Rx#: [id number] Magnesium Sulfate-D5w Pmx 100 100 1 gm In Dextrose/Water 1 100ml.bag @ 100 mls/hr IVPB Q1H [facility] Rx#: [id number] Sodium Chloride 0.9% 1, 240 000 ml @ 100 mls/hr IV . Q10H [facility] Rx#:[id number] Sodium Chloride 3%( 160 Hypertonic) 160 ml @ 40 mls/hr IV .Q4H [facility] Rx#: [id number] Sodium Chloride 3%( 160 Hypertonic) 160 ml @ 40 mls/hr IV .Q4H [facility] Rx#: [id number] Oral 250 300 150 Output: Urine 1007 1005 1280 Other: Voiding Method Indwelling Catheter Indwelling Catheter Indwelling Catheter - Exam Head exam was generally normal. There was no scleral icterus or corneal arcus. Mucous membranes were moist.Neck was supple and without jugular venous distension, thyromegaly, or carotid bruits. Carotids were easily palpable bilaterally. There was no adenopathy.Lungs were clear to auscultation and percussion, and with normal diaphragmatic excursion. No wheezes or rales were noted. Cardiac exam revealed the PMI to be normally situated and sized. The rhythm was regular and no extrasystoles were noted during several minutes of auscultation. The first and second heart sounds were normal and physiologic splitting of the second heart sound was noted. There were no murmurs, rubs, clicks, or gallops.Abdominal exam revealed normal bowel sounds. The abdomen was soft, non-tender, and without masses, organomegaly, or appreciable enlargement of the abdominal aorta.Examination of the extremities revealed easily palpable radial, femoral and pedal pulses. There was no cyanosis, clubbing or edema. Neurologic exam is nonfocal and the patient is moving all 4 extremities without any major limitation. - Labs CBC & Chem 7: 08/17/16 03:47 08/17/16 11:05 Labs: Abnormal Lab Results - Last 24 Hours (Table) 08/16/16 08/16/16 08/17/16 Range/Units 17:33 21:55 03:47 RBC 2.15 L (4.30-5.90) m/uL Hgb 7.3 L (13.0-17.5) gm/dL Hct 21.1 L (39.0-53.0) % Lymphocytes # (Manual) 0.8 L (1.0-4.8) k/uL Sodium 123 L 120 L* (137-145) mmol/L Potassium 6.1 H (3.5-5.1) mmol/L Chloride 87 L 85 L (98-107) mmol/L BUN 29 H 30 H (9-20) mg/dL Creatinine 1.35 H (0.66-1.25) mg/dL Glucose 143 H 147 H (74-99) mg/dL 08/17/16 08/17/16 08/17/16 Range/Units 03:47 08:20 11:05 RBC (4.30-5.90) m/uL Hgb (13.0-17.5) gm/dL Hct (39.0-53.0) % Lymphocytes # (Manual) (1.0-4.8) k/uL Sodium 123 L 123 L 124 L (137-145) mmol/L Potassium 5.4 H (3.5-5.1) mmol/L Chloride 89 L 89 L (98-107) mmol/L BUN 30 H 28 H (9-20) mg/dL Creatinine 1.30 H (0.66-1.25) mg/dL Glucose 103 H 181 H (74-99) mg/dL Assessment and Plan Plan: Assessment 1 severe hyponatremia with secondary change in mental status. Rule out hyponatremia secondary to excessive fluid intake compared to solute. Underlying SIADH is felt to be less likely at this point. The patient is producing significant amount of urine output and there may be a component of rapid correction of his sodium level up to 125. Nephrology is inclined to give the patient dose of desmopressin. He is seen again today 08/16/2016 in follow-up. He is awake and alert in no acute distress. His sodium level has remained at 126 the past 24 hours. He did receive 1 dose of desmopressin yesterday. He is seen again today 08/17/2016 in follow-up. He did have a drop in sodium yesterday to 120 and did receive 3% hypertonic saline solution at 40 miles per hour. Most recent sodium level 124. 2 change in mental status, recovered. 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 Nephrology is managing his hyponatremia and the patient did require 3% hypertonic solution again last evening. His current sodium is 124. We will continue to follow make further recommendations based on his clinical status.
[2016-08-17 16:09] LABS: Anion Gap 10 mmol/L; Blood Urea Nitrogen 28 mg/dL (9-20); Carbon Dioxide 26 mmol/L (22-30); Chloride 89 mmol/L (98-107); Glucose 138 mg/dL (74-99); Non-African American GFR(MDRD) 55 (>60 ml/min/1.73 sqM); Potassium 5.4 mmol/L (3.5-5.1); Sodium 125 mmol/L (137-145)
--- NOTE | 2016-08-17 19:01 | PN ---
DATE OF SERVICE: 08/17/2016 This 76-year-old gentleman who was admitted with change in mental status, metabolic encephalopathy had severe hyponatremia also. The sodium level is fluctuating. The patient is also receiving another bolus of 3% saline. Dr. Valencia is following the patient closely. The most recent sodium is 124 at this time. Patient's sodium was 120 yesterday. Past medical history reviewed. REVIEW OF SYSTEMS: CARDIOVASCULAR: No angina, palpitation. RESPIRATORY SYSTEM: As mentioned earlier. GI: As mentioned earlier. : No dysuria. NERVOUS SYSTEM: No numbness or weakness. Hemoglobin is 7.3. Current medications are: 1. Tylenol 650 q.6 p.r.n. 2. Ventolin. 3. Xanax. 4. Benadryl. 5. Folic acid. 6. Haldol. 7. Ativan. 8. Melatonin. 9. Glucophage. 10. Multivitamins. 11. Narcan. 12. Protonix. 13. Flomax. PHYSICAL EXAMINATION: Patient is alert and oriented x2. Pulse 80, blood pressure 120/59, respiration 10, temperature 98.2, pulse ox 93% on room air. HEENT: Conjunctivae normal. NECK: No jugular venous distention. CARDIOVASCULAR SYSTEM: S1, S2 muffled. RESPIRATORY SYSTEM: Breath sounds diminished at the bases. A few scattered rhonchi. No crackles. ABDOMEN: Soft, nontender. LEGS: No edema. No swelling. NERVOUS SYSTEM: No focal deficit. LABS: WBC 3.8. Hemoglobin is 7.3. Sodium 123, potassium 5.4 and then 4.7. ASSESSMENT: 1. Change in mental status, metabolic encephalopathy; possibly toxic metabolic encephalopathy secondary to hyponatremia. 2. Status post 3% saline. 3. Hyperchloremia. 4. Possible syndrome of inappropriate antidiuretic hormone as well as diminished oral intake. 5. Increased random blood sugar. 6. Increased creatine kinase. 7. Anemia, normocytic; anemia of chronic disease and secondary to malignancy. 8. History of throat cancer secondary to lungs on liver, on chemoradiation. 9. Gait dysfunction. 10. History of recent hyponatremia, possibly secondary to hypovolemia as well as syndrome of inappropriate antidiuretic hormone. 11. History of renal failure. 12. History of orthostatic hypotension. 13. History of influenza. 14. Diabetes mellitus, type 2. 15. FULL CODE. RECOMMENDATIONS AND DISCUSSION: I recommend to continue with the current medications, continue with symptomatic treatment. Otherwise, we will monitor the sodium closely. The patient is followed by Pulmonary as well as Nephrology. Saline 3% has been given. IV given. I would also recommend 1 unit of transfusion; continue to monitor because of symptomatic anemia. Prognosis guarded. Further recommendations to follow. See orders for further details. MTDD
[2016-08-17 19:09] LABS: Anion Gap 8 mmol/L; Blood Urea Nitrogen 27 mg/dL (9-20); Calcium 9.1 mg/dL (8.4-10.2); Carbon Dioxide 27 mmol/L (22-30); Chloride 89 mmol/L (98-107); Glucose 146 mg/dL (74-99); Non-African American GFR(MDRD) 58 (>60 ml/min/1.73 sqM); Potassium 5.4 mmol/L (3.5-5.1); Sodium 124 mmol/L (137-145)
[2016-08-17] MEDS: TAMSULOSIN 0.4 MG CAP.ER.24H PO SCH (21:03)
[2016-08-17] MEDS: MELATONIN 5 MG TABLET PO SCH (21:03)
[2016-08-17] MEDS: ACETAMINOPHEN TAB 500 MG TAB PO SCH (21:03)
[2016-08-17] MEDS: LISINOPRIL 20 MG TAB PO SCH (21:03)
[2016-08-17] MEDS: diphenhydrAMINE 25 MG CAP PO SCH (21:03)
[2016-08-18 05:07] LABS: Basophils % (A) 0 %; CH 34.7; CHCM 35.4; Eosinophils % (A) 1 %; HCT 25.4 % (39.0-53.0); HDW 2.77; HGB 8.6 gm/dL (13.0-17.5); Luc # (Auto) 0.13; Luc % (Auto) 5; Lymphocytes # (A) 0.4 k/uL (1.0-4.8); Lymphocytes % (A) 13 %; MCH 33.2 pg (25.0-35.0); MCHC 33.8 g/dL (31.0-37.0); MCV 98.2 fL (80.0-100.0); Mean Platelet Volume 8.2; Monocytes # (A) 0.2 k/uL (0-1.0); Monocytes % (A) 8 %; Neutrophils # (A) 2.2 k/uL (1.3-7.7); Neutrophils % (A) 74 %; RBC 2.58 m/uL (4.30-5.90); RDW 14.5 % (11.5-15.5); WBC 2.9 k/uL (3.8-10.6); WBC (Perox) 3.14
[2016-08-18 05:22] LABS: Anion Gap 7 mmol/L; Blood Urea Nitrogen 23 mg/dL (9-20); Calcium 9.2 mg/dL (8.4-10.2); Carbon Dioxide 30 mmol/L (22-30); Chloride 94 mmol/L (98-107); Glucose 122 mg/dL (74-99); Non-African American GFR(MDRD) 60 (>60 ml/min/1.73 sqM); Phosphorous 3.5 mg/dL (2.5-4.5); Potassium 4.9 mmol/L (3.5-5.1); Sodium 131 mmol/L (137-145)
[2016-08-18] MEDS: ALBUTEROL NEBULIZED 2.5 MG/3 ML INHALATION SCH ×4 (07:31→19:31)
[2016-08-18] MEDS: FOLIC ACID 1 MG TAB PO SCH (07:46)
[2016-08-18] MEDS: MULTIVITAMINS, THERA 1 EACH TAB PO SCH (07:46)
[2016-08-18] MEDS: metFORMIN 500 MG TAB PO SCH ×2 (07:47→22:11)
[2016-08-18] MEDS: PANTOPRAZOLE 40 MG/10 ML VIAL IV SCH (07:47)
--- NOTE | 2016-08-18 08:52 | P.PN ---
Subjective Patient is seen in follow-up for hyponatremia. Patient presented with a sodium level of 114 which improved to 126 with 3% saline. However it dropped back down again to 120 with normal saline. He again received 4 hours of 3% saline last night. Sodium level this morning is 131. Patient's currently resting in bed. He remains off all IV fluids. He denies any chest pain or shortness of breath. His mentation is back to baseline. No vomiting or diarrhea. He is nonoliguric. Vital signs are stable. General: The patient appeared well nourished and normally developed. HEENT: Head exam is unremarkable. Neck is without jugular venous distension. LUNGS: Lungs are clear to auscultation and percussion. Breath sounds decreased. HEART: Rate and Rhythm are regular. First and second heart sounds normal. No murmurs, rubs or gallops. ABDOMEN: Abdominal exam reveals normal bowel sounds. Non-tender and non- distended. No evidence of peritonitis. EXTREMITITES: No clubbing, cyanosis, or edema. Objective - Vital Signs Vital signs: Vital Signs Temp 97.8 F 08/18/16 08:00 Pulse 81 08/18/16 08:00 Resp 21 08/18/16 08:00 BP 136/61 08/18/16 08:00 Pulse Ox 97 08/18/16 08:00 Intake & Output 08/17/16 08/18/16 08/18/16 18:59 06:59 18:59 Intake Total 410 810 150 Output Total 1695 1580 280 Balance -1285 -770 -130 Weight 92.4 kg Intake: Intake, IV Titration 260 160 Amount Magnesium Sulfate-D5w Pmx 100 1 gm In Dextrose/Water 1 100ml.bag @ 100 mls/hr IVPB Q1H [facility] Rx#: [id number] Sodium Chloride 3%( 160 Hypertonic) 160 ml @ 40 mls/hr IV .Q4H [facility] Rx#: [id number] Sodium Chloride 3%( 160 Hypertonic) 160 ml @ 40 mls/hr IV .Q4H [facility] Rx#: [id number] Oral 150 150 Blood Product 620 Rc As-1 Unit 310 [id number] Other 30 Rc As-1 Unit 30 [id number] Output: Urine 1695 1580 280 Other: Voiding Method Indwelling Catheter Indwelling Catheter Indwelling Catheter - Labs CBC & Chem 7: 08/18/16 04:48 08/18/16 04:48 Labs: Abnormal Lab Results - Last 24 Hours (Table) 08/17/16 08/17/16 08/17/16 Range/Units 08:20 11:05 15:26 WBC (3.8-10.6) k/uL RBC (4.30-5.90) m/uL Hgb (13.0-17.5) gm/dL Hct (39.0-53.0) % Lymphocytes # (1.0-4.8) k/uL Sodium 123 L 124 L 125 L (137-145) mmol/L Potassium 5.4 H (3.5-5.1) mmol/L Chloride 89 L 89 L (98-107) mmol/L BUN 28 H 28 H (9-20) mg/dL Creatinine 1.27 H (0.66-1.25) mg/dL Glucose 181 H 138 H (74-99) mg/dL Crossmatch 08/17/16 08/17/16 08/18/16 Range/Units 18:39 18:42 01:30 WBC (3.8-10.6) k/uL RBC (4.30-5.90) m/uL Hgb (13.0-17.5) gm/dL Hct (39.0-53.0) % Lymphocytes # (1.0-4.8) k/uL Sodium 124 L 126 L (137-145) mmol/L Potassium 5.4 H (3.5-5.1) mmol/L Chloride 89 L (98-107) mmol/L BUN 27 H (9-20) mg/dL Creatinine (0.66-1.25) mg/dL Glucose 146 H (74-99) mg/dL Crossmatch See Detail 08/18/16 08/18/16 Range/Units 04:48 04:48 WBC 2.9 L (3.8-10.6) k/uL RBC 2.58 L (4.30-5.90) m/uL Hgb 8.6 L (13.0-17.5) gm/dL Hct 25.4 L (39.0-53.0) % Lymphocytes # 0.4 L (1.0-4.8) k/uL Sodium 131 L (137-145) mmol/L Potassium (3.5-5.1) mmol/L Chloride 94 L (98-107) mmol/L BUN 23 H (9-20) mg/dL Creatinine (0.66-1.25) mg/dL Glucose 122 H (74-99) mg/dL Crossmatch Assessment and Plan Plan: Assessment: #1. Hyponatremia secondary to excess water intake in the setting of low solute intake. Also a component of SIADH from underlying malignancy. Sodium level 131 this morning. #2. 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 #3. Altered mental status related to hyponatremia. Resolved. #4. Anemia. Iron deficiency present. #5. Nonoliguric acute kidney injury mostly prerenal. Resolved. Creatinine 1.19 today. Baseline in the range of 1.1-1.2. Plan: Maintain 1 L fluid restriction. Maintain ensure with meals. IV Ferrlecit 125 mg IV daily for 3 days. Second dose today. Avoid nephrotoxic agents and hypotensive episodes. Hold BRITTANY inhibitor for now. Stable to be transferred out of the intensive care unit from nephrology standpoint. Repeat electrolytes in the morning.
[2016-08-18 10:17] VITALS: BMI 28.4
[2016-08-18 11:35] LABS: Glucose,Whole Blood 109 mg/dL (75-99)
--- NOTE | 2016-08-18 16:08 | P.PN ---
Subjective 76-year-old male patient who presented to the hospital yesterday because of change in mental status. At that point the patient was found to be profoundly hyponatremic and his sodium level was 114. He had a similar admission approximately a month ago with a sodium levels were noted to be low however did not to this extent. The patient was quite lethargic and confused. In fact he was getting restless and yelling and thrashing throughout the night. He was given Haldol and later on Ativan to control his agitation. In terms of his hyponatremia, the patient was started on hypertonic saline at 3% at the rate of 40 mL an hour. Overnight his sodium level gradually came up and earlier this morning it came up to 125. This was a concern due to a rapid correction of the sodium level and the findings on the case and the patient will be given a dose of DDAVP. Nephrology is on the case in this regard. Note that the swelling increased urine output and at one point the patient was producing up to 300-400 mL on an hourly basis which has another concern. Note that along with this correction of the sodium level, the patient improved and his mentation improved significantly to the point where the patient woke up this morning and is following commands and answering questions and he was appropriate to place and people. He was taken hydrochlorothiazide in the past not for now. He is known to have a malignancy and the base of his tongue which is of a squamous cell type and the patient has undergone previous chemoradiation therapy. His disease is felt to be metastatic at this point during that he has a lesion in the liver that was found to be consistent with squamous cell carcinoma. He is under the care of Dr. Barnard. No signs of any dehydration. Apparently was drinking and eating and he was quite active prior to his hospital admission. His renal function was stable with a creatinine of 1.1. No headache. No head trauma. Chest x-ray from this current admission shows no acute abnormalities. CAT scan of the brain showed no acute intracranial hemorrhage or midline shift and there is moderate diffuse age-related cerebral atrophy. In terms of further workup, the patient was found to have a urine osmolarity of 314 and urine random sodium of 47. UA is essentially negative at this point. Nephrology also saw the patient and dictating that the hyponatremia is most likely secondary to excessive water intake compared to solute. The patient is seen again today 08/16/2016 in follow-up. He is awake and alert in no acute distress he is oriented 3. His sodium level has stayed steady at 126 the past 24 hours. He did receive a dose of desmopressin yesterday. He currently has no complaints. No shortness of breath, cough or congestion. No discomfort. No dizziness or lightheadedness. He remains in a -300 and output balance. He is maintaining good O2 saturations in the mid 90s on room air. He' s been hemodynamically stable. The patient is seen again today 08/17/2016 in follow-up in the intensive care unit. He is currently sitting up in the chair at the bedside. He is awake and alert in no acute distress. He denies any significant weakness, dizziness or lightheadedness. His sodium had dropped to 120 last evening and 3% hypertonic saline was transfused at 40 miles per hour. His current sodium level is 124 and the transfusion has been stopped. Iron has been added in regards to his iron deficiency anemia. The patient is seen again today 08/18/2016 in follow-up in the intensive care unit. He has been doing very well. He's been up ambulating in the hallway. He is awake and alert in no acute distress. He denies any current confusion. No dizziness or lightheadedness. No shortness of breath, cough or congestion. Did require some additional 3% normal saline last evening. This morning's sodium level is proved to 131. His hemoglobin is stable at 8.6. Objective - Vital Signs Vital signs: Vital Signs Temp 97.8 F 08/18/16 08:00 Pulse 76 08/18/16 15:43 Resp 21 08/18/16 08:00 BP 136/61 08/18/16 08:00 Pulse Ox 97 08/18/16 08:00 Intake & Output 08/17/16 08/18/16 08/18/16 18:59 06:59 18:59 Intake Total 410 810 150 Output Total 1695 1580 280 Balance -1285 -770 -130 Weight 92.4 kg 92.4 kg Intake: Intake, IV Titration 260 160 Amount Magnesium Sulfate-D5w Pmx 100 1 gm In Dextrose/Water 1 100ml.bag @ 100 mls/hr IVPB Q1H [facility] Rx#: [id number] Sodium Chloride 3%( 160 Hypertonic) 160 ml @ 40 mls/hr IV .Q4H [facility] Rx#: [id number] Sodium Chloride 3%( 160 Hypertonic) 160 ml @ 40 mls/hr IV .Q4H [facility] Rx#: [id number] Oral 150 150 Blood Product 620 Rc As-1 Unit 310 [id number] Other 30 Rc As-1 Unit 30 [id number] Output: Urine 1695 1580 280 Other: Voiding Method Indwelling Catheter Indwelling Catheter Indwelling Catheter - Exam Head exam was generally normal. There was no scleral icterus or corneal arcus. Mucous membranes were moist.Neck was supple and without jugular venous distension, thyromegaly, or carotid bruits. Carotids were easily palpable bilaterally. There was no adenopathy.Lungs were clear to auscultation and percussion, and with normal diaphragmatic excursion. No wheezes or rales were noted. Cardiac exam revealed the PMI to be normally situated and sized. The rhythm was regular and no extrasystoles were noted during several minutes of auscultation. The first and second heart sounds were normal and physiologic splitting of the second heart sound was noted. There were no murmurs, rubs, clicks, or gallops.Abdominal exam revealed normal bowel sounds. The abdomen was soft, non-tender, and without masses, organomegaly, or appreciable enlargement of the abdominal aorta.Examination of the extremities revealed easily palpable radial, femoral and pedal pulses. There was no cyanosis, clubbing or edema. Neurologic exam is nonfocal and the patient is moving all 4 extremities without any major limitation. - Labs CBC & Chem 7: 08/18/16 04:48 08/18/16 04:48 Labs: Abnormal Lab Results - Last 24 Hours (Table) 08/17/16 08/17/16 08/17/16 Range/Units 15:26 18:39 18:42 WBC (3.8-10.6) k/uL RBC (4.30-5.90) m/uL Hgb (13.0-17.5) gm/dL Hct (39.0-53.0) % Lymphocytes # (1.0-4.8) k/uL Sodium 125 L 124 L (137-145) mmol/L Potassium 5.4 H 5.4 H (3.5-5.1) mmol/L Chloride 89 L 89 L (98-107) mmol/L BUN 28 H 27 H (9-20) mg/dL Creatinine 1.27 H (0.66-1.25) mg/dL Glucose 138 H 146 H (74-99) mg/dL POC Glucose (mg/dL) (75-99) mg/dL Crossmatch See Detail 08/18/16 08/18/16 08/18/16 Range/Units 01:30 04:48 04:48 WBC 2.9 L (3.8-10.6) k/uL RBC 2.58 L (4.30-5.90) m/uL Hgb 8.6 L (13.0-17.5) gm/dL Hct 25.4 L (39.0-53.0) % Lymphocytes # 0.4 L (1.0-4.8) k/uL Sodium 126 L 131 L (137-145) mmol/L Potassium (3.5-5.1) mmol/L Chloride 94 L (98-107) mmol/L BUN 23 H (9-20) mg/dL Creatinine (0.66-1.25) mg/dL Glucose 122 H (74-99) mg/dL POC Glucose (mg/dL) (75-99) mg/dL Crossmatch 08/18/16 Range/Units 11:31 WBC (3.8-10.6) k/uL RBC (4.30-5.90) m/uL Hgb (13.0-17.5) gm/dL Hct (39.0-53.0) % Lymphocytes # (1.0-4.8) k/uL Sodium (137-145) mmol/L Potassium (3.5-5.1) mmol/L Chloride (98-107) mmol/L BUN (9-20) mg/dL Creatinine (0.66-1.25) mg/dL Glucose (74-99) mg/dL POC Glucose (mg/dL) 109 H (75-99) mg/dL Crossmatch Assessment and Plan Plan: Assessment 1 severe hyponatremia with secondary change in mental status. Rule out hyponatremia secondary to excessive fluid intake compared to solute. Underlying SIADH is felt to be less likely at this point. The patient is producing significant amount of urine output and there may be a component of rapid correction of his sodium level up to 125. Nephrology is inclined to give the patient dose of desmopressin. He is seen again today 08/16/2016 in follow-up. He is awake and alert in no acute distress. His sodium level has remained at 126 the past 24 hours. He did receive 1 dose of desmopressin yesterday. He is seen again today 08/17/2016 in follow-up. He did have a drop in sodium yesterday to 120 and did receive 3% hypertonic saline solution at 40 miles per hour. Most recent sodium level 124. He is seen again today 08/18/2016 in follow-up. He did have additional 3% normal saline yesterday. Current sodium 131. He has been up ambulating in the hallway. 2 change in mental status, recovered. 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 Nephrology is managing his hyponatremia and the patient did require 3% hypertonic solution again last evening. His current sodium is 131. We will continue to follow and make further recommendations based on his clinical status.
--- NOTE | 2016-08-18 16:59 | PN ---
DATE OF SERVICE: 08/18/2016 This 76-year-old gentleman who was admitted with change in mental status and hyponatremia and metabolic encephalopathy is being closely monitored. The patient is transferred out of ICU. The patient is improving significantly. The patient is able to ambulate and the white count is 2.9. Sodium has improved to 131. PHYSICAL EXAMINATION: Patient is alert and oriented x3. Pulse is 81, blood pressure ntd temperature 97.8, pulse ox is 97% on room air. HEENT: Conjunctivae normal. NECK: No jugular venous distention. CARDIOVASCULAR: S1 and S2. RESPIRATORY: Breath sounds diminished at the bases. A few rhonchi. No crackles. ABDOMEN: Soft, nontender. LEGS: No edema, no swelling. NERVOUS SYSTEM: No focal deficits. LABS: WBC 2.8, hemoglobin 8, sodium 131. ASSESSMENT: 1. Change in mental status, metabolic encephalopathy, possibly toxic metabolic encephalopathy secondary to hyponatremia. 2. Status post 3% saline. 3. Hyperchloremia. 4. Possibly SIADH as well as diminished oral intake. 5. Increased random blood sugar. 6. Increased creatine kinase. 7. Anemia, normocytic, anemia of chronic disease secondary to malignancy. 8. 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 9. Gait dysfunction. 10. History of recent hyponatremia, possibly secondary to hypovolemia as well as syndrome of inappropriate antidiuretic hormone secretion. 11. History of renal failure. 12. History of orthostatic hypotension. 13. History of influenza. 14. History of diabetes mellitus type 2. 15. FULL CODE. RECOMMENDATIONS AND DISCUSSION: In this 76-year-old gentleman who presented with multiple complex medical issues, we will monitor the patient closely. I would recommend repeat labs. Increase ambulation. If the patient is feeling better, I would recommend home with home care. Otherwise ECF rehab is also recommend. The prognosis is guarded because of multiple complex medical issues and further recommendations to follow. DEEPAD
[2016-08-18 17:19] LABS: Glucose,Whole Blood 123 mg/dL (75-99)
[2016-08-18 20:48] LABS: Glucose,Whole Blood 212 mg/dL (75-99)
[2016-08-18] MEDS: ACETAMINOPHEN TAB 500 MG TAB PO SCH (22:10)
[2016-08-18] MEDS: diphenhydrAMINE 25 MG CAP PO SCH (22:11)
[2016-08-18] MEDS: MELATONIN 5 MG TABLET PO SCH (22:11)
[2016-08-18] MEDS: TAMSULOSIN 0.4 MG CAP.ER.24H PO SCH (22:11)
[2016-08-19] MEDS: ALBUTEROL NEBULIZED 2.5 MG/3 ML INHALATION SCH ×4 (07:06→20:32)
[2016-08-19 07:27] LABS: Glucose,Whole Blood 129 mg/dL (75-99)
[2016-08-19 07:58] LABS: Aty Lym Flag Slight; CH 34.6; HCT 27.4 % (39.0-53.0); HDW 2.86; MCH 32.8 pg (25.0-35.0); MCV 99.3 fL (80.0-100.0); Macrocytosis Slight; Mean Platelet Volume 7.9; RBC 2.76 m/uL (4.30-5.90); RDW 14.6 % (11.5-15.5); WBC 3.5 k/uL (3.8-10.6); WBC (Perox) 3.79
[2016-08-19 08:10] LABS: Anion Gap 9 mmol/L; Blood Urea Nitrogen 24 mg/dL (9-20); Calcium 9.8 mg/dL (8.4-10.2); Carbon Dioxide 28 mmol/L (22-30); Chloride 96 mmol/L (98-107); Glucose 132 mg/dL (74-99); Non-African American GFR(MDRD) >60 (>60 ml/min/1.73 sqM); Potassium 4.9 mmol/L (3.5-5.1); Sodium 133 mmol/L (137-145)
[2016-08-19] MEDS: metFORMIN 500 MG TAB PO SCH ×2 (08:21→17:27)
[2016-08-19] MEDS: MULTIVITAMINS, THERA 1 EACH TAB PO SCH (08:21)
[2016-08-19] MEDS: FOLIC ACID 1 MG TAB PO SCH (08:22)
[2016-08-19] MEDS: PANTOPRAZOLE 40 MG/10 ML VIAL IV SCH (08:22)
[2016-08-19 08:30] LABS: Add Differential Manual Differential
[2016-08-19 08:32] LABS: Nucleated Red Blood Cells 0 /100 WBC (0-0); Polychromasia Present; Total Cells Counted 100
[2016-08-19 11:29] LABS: Glucose,Whole Blood 143 mg/dL (75-99)
--- NOTE | 2016-08-19 13:02 | P.PN ---
Subjective 76-year-old male patient who presented to the hospital yesterday because of change in mental status. At that point the patient was found to be profoundly hyponatremic and his sodium level was 114. He had a similar admission approximately a month ago with a sodium levels were noted to be low however did not to this extent. The patient was quite lethargic and confused. In fact he was getting restless and yelling and thrashing throughout the night. He was given Haldol and later on Ativan to control his agitation. In terms of his hyponatremia, the patient was started on hypertonic saline at 3% at the rate of 40 mL an hour. Overnight his sodium level gradually came up and earlier this morning it came up to 125. This was a concern due to a rapid correction of the sodium level and the findings on the case and the patient will be given a dose of DDAVP. Nephrology is on the case in this regard. Note that the swelling increased urine output and at one point the patient was producing up to 300-400 mL on an hourly basis which has another concern. Note that along with this correction of the sodium level, the patient improved and his mentation improved significantly to the point where the patient woke up this morning and is following commands and answering questions and he was appropriate to place and people. He was taken hydrochlorothiazide in the past not for now. He is known to have a malignancy and the base of his tongue which is of a squamous cell type and the patient has undergone previous chemoradiation therapy. His disease is felt to be metastatic at this point during that he has a lesion in the liver that was found to be consistent with squamous cell carcinoma. He is under the care of Dr. Barnard. No signs of any dehydration. Apparently was drinking and eating and he was quite active prior to his hospital admission. His renal function was stable with a creatinine of 1.1. No headache. No head trauma. Chest x-ray from this current admission shows no acute abnormalities. CAT scan of the brain showed no acute intracranial hemorrhage or midline shift and there is moderate diffuse age-related cerebral atrophy. In terms of further workup, the patient was found to have a urine osmolarity of 314 and urine random sodium of 47. UA is essentially negative at this point. Nephrology also saw the patient and dictating that the hyponatremia is most likely secondary to excessive water intake compared to solute. The patient is seen again today 08/16/2016 in follow-up. He is awake and alert in no acute distress he is oriented 3. His sodium level has stayed steady at 126 the past 24 hours. He did receive a dose of desmopressin yesterday. He currently has no complaints. No shortness of breath, cough or congestion. No discomfort. No dizziness or lightheadedness. He remains in a -300 and output balance. He is maintaining good O2 saturations in the mid 90s on room air. He' s been hemodynamically stable. The patient is seen again today 08/17/2016 in follow-up in the intensive care unit. He is currently sitting up in the chair at the bedside. He is awake and alert in no acute distress. He denies any significant weakness, dizziness or lightheadedness. His sodium had dropped to 120 last evening and 3% hypertonic saline was transfused at 40 miles per hour. His current sodium level is 124 and the transfusion has been stopped. Iron has been added in regards to his iron deficiency anemia. The patient is seen again today 08/18/2016 in follow-up in the intensive care unit. He has been doing very well. He's been up ambulating in the hallway. He is awake and alert in no acute distress. He denies any current confusion. No dizziness or lightheadedness. No shortness of breath, cough or congestion. Did require some additional 3% normal saline last evening. This morning's sodium level is proved to 131. His hemoglobin is stable at 8.6. The patient is seen again today 08/19/2016 in follow-up in the oncology unit. He continues to do quite well. He's been up ambulating in the hallway with his son. He denies any shortness of breath, cough or congestion. No dizziness or lightheadedness. He is alert and oriented 3. His sodium is up to 133 today.Hemoglobin really stable at 9.0. Objective - Vital Signs Vital signs: Vital Signs Temp 97.7 F 08/19/16 07:00 Pulse 78 08/19/16 11:42 Resp 16 08/19/16 08:00 BP 130/73 08/19/16 07:00 Pulse Ox 98 08/19/16 07:00 Intake & Output 08/18/16 08/19/16 08/19/16 18:59 06:59 18:59 Intake Total 150 240 Output Total 280 Balance -130 240 Weight 92.4 kg Intake: Oral 150 240 Output: Urine 280 Other: Voiding Method Toilet Toilet Toilet # Voids 2 2 - Exam Head exam was generally normal. There was no scleral icterus or corneal arcus. Mucous membranes were moist.Neck was supple and without jugular venous distension, thyromegaly, or carotid bruits. Carotids were easily palpable bilaterally. There was no adenopathy.Lungs were clear to auscultation and percussion, and with normal diaphragmatic excursion. No wheezes or rales were noted. Cardiac exam revealed the PMI to be normally situated and sized. The rhythm was regular and no extrasystoles were noted during several minutes of auscultation. The first and second heart sounds were normal and physiologic splitting of the second heart sound was noted. There were no murmurs, rubs, clicks, or gallops.Abdominal exam revealed normal bowel sounds. The abdomen was soft, non-tender, and without masses, organomegaly, or appreciable enlargement of the abdominal aorta.Examination of the extremities revealed easily palpable radial, femoral and pedal pulses. There was no cyanosis, clubbing or edema. Neurologic exam is nonfocal and the patient is moving all 4 extremities without any major limitation. - Labs CBC & Chem 7: 08/19/16 07:21 08/19/16 07:21 Labs: Abnormal Lab Results - Last 24 Hours (Table) 08/18/16 08/18/16 08/19/16 Range/Units :17 20:25 07:21 WBC 3.5 L (3.8-10.6) k/uL RBC 2.76 L (4.30-5.90) m/uL Hgb 9.0 L (13.0-17.5) gm/dL Hct 27.4 L (39.0-53.0) % Lymphocytes # (Manual) 0.7 L (1.0-4.8) k/uL Sodium (137-145) mmol/L Chloride (98-107) mmol/L BUN (9-20) mg/dL Glucose (74-99) mg/dL POC Glucose (mg/dL) 123 H 212 H (75-99) mg/dL 08/19/16 08/19/16 08/19/16 Range/Units 07:21 07:24 11:25 WBC (3.8-10.6) k/uL RBC (4.30-5.90) m/uL Hgb (13.0-17.5) gm/dL Hct (39.0-53.0) % Lymphocytes # (Manual) (1.0-4.8) k/uL Sodium 133 L (137-145) mmol/L Chloride 96 L (98-107) mmol/L BUN 24 H (9-20) mg/dL Glucose 132 H (74-99) mg/dL POC Glucose (mg/dL) 129 H 143 H (75-99) mg/dL Assessment and Plan Plan: Assessment 1 severe hyponatremia with secondary change in mental status. Rule out hyponatremia secondary to excessive fluid intake compared to solute. Underlying SIADH is felt to be less likely at this point. The patient is producing significant amount of urine output and there may be a component of rapid correction of his sodium level up to 125. Nephrology is inclined to give the patient dose of desmopressin. He is seen again today 08/16/2016 in follow-up. He is awake and alert in no acute distress. His sodium level has remained at 126 the past 24 hours. He did receive 1 dose of desmopressin yesterday. He is seen again today 08/17/2016 in follow-up. He did have a drop in sodium yesterday to 120 and did receive 3% hypertonic saline solution at 40 miles per hour. Most recent sodium level 124. He is seen again today 08/18/2016 in follow-up. He did have additional 3% normal saline yesterday. Current sodium 131. He has been up ambulating in the hallway. He is seen again today in 08/19/2016 in follow-up. Current sodium 133. He has no complaints. He is anxious to go home. 2 change in mental status, recovered. 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 Bills. He is stable from the pulmonary and critical care standpoint. We'll see the patient on an as-needed basis.
[2016-08-19] MEDS: ACETAMINOPHEN TAB 325 MG TAB PO PRN (16:18)
[2016-08-19 17:17] LABS: Glucose,Whole Blood 115 mg/dL (75-99)
[2016-08-19] MEDS: ACETAMINOPHEN TAB 500 MG TAB PO SCH (20:23)
[2016-08-19] MEDS: MELATONIN 5 MG TABLET PO SCH (20:23)
[2016-08-19] MEDS: diphenhydrAMINE 25 MG CAP PO SCH (20:23)
[2016-08-19] MEDS: TAMSULOSIN 0.4 MG CAP.ER.24H PO SCH (20:23)
[2016-08-19 20:54] LABS: Glucose,Whole Blood 175 mg/dL (75-99)
[2016-08-20 07:21] LABS: Glucose,Whole Blood 138 mg/dL (75-99)
[2016-08-20] MEDS ORDERED: PANTOPRAZOLE 40 MG TABLET PO SCH (07:30)
[2016-08-20] MEDS: metFORMIN 500 MG TAB PO SCH (07:35)
[2016-08-20] MEDS: MULTIVITAMINS, THERA 1 EACH TAB PO SCH (07:36)
[2016-08-20] MEDS: FOLIC ACID 1 MG TAB PO SCH (07:36)
[2016-08-20] MEDS: ACETAMINOPHEN TAB 325 MG TAB PO PRN (07:42)
[2016-08-20 08:29] LABS: Anion Gap 11 mmol/L; Blood Urea Nitrogen 24 mg/dL (9-20); Calcium 9.8 mg/dL (8.4-10.2); Carbon Dioxide 27 mmol/L (22-30); Chloride 96 mmol/L (98-107); Glucose 127 mg/dL (74-99); Non-African American GFR(MDRD) 56 (>60 ml/min/1.73 sqM); Sodium 134 mmol/L (137-145)
--- NOTE | 2016-08-20 09:11 | P.PN ---
Subjective Patient is seen in follow-up for hyponatremia. Patient presented with a sodium level of 114. He he subsequently received 3% saline with gradual improvement i sodium level. Sodium level this morning is 134. Patient's currently resting in bed. He remains off all IV fluids. He denies any chest pain or shortness of breath. His mentation is back to baseline. No vomiting or diarrhea. He is nonoliguric. Vital signs are stable. General: The patient appeared well nourished and normally developed. HEENT: Head exam is unremarkable. Neck is without jugular venous distension. LUNGS: Lungs are clear to auscultation and percussion. Breath sounds decreased. HEART: Rate and Rhythm are regular. First and second heart sounds normal. No murmurs, rubs or gallops. ABDOMEN: Abdominal exam reveals normal bowel sounds. Non-tender and non- distended. No evidence of peritonitis. EXTREMITITES: No clubbing, cyanosis, or edema. Objective - Vital Signs Vital signs: Vital Signs Temp 97 F L 08/19/16 15:00 Pulse 75 08/19/16 21:25 Resp 18 08/19/16 21:25 BP 134/75 08/19/16 21:25 Pulse Ox 99 08/19/16 21:25 Intake & Output 08/19/16 08/20/16 08/20/16 18:59 06:59 18:59 Intake Total 540 Balance 540 Intake: Oral 540 Other: Voiding Method Toilet Toilet # Voids 2 2 - Labs CBC & Chem 7: 08/19/16 07:21 08/20/16 07:20 Labs: Abnormal Lab Results - Last 24 Hours (Table) 08/19/16 08/19/16 08/19/16 Range/Units 11:25 17:15 20:09 Sodium (137-145) mmol/L Chloride (98-107) mmol/L BUN (9-20) mg/dL Glucose (74-99) mg/dL POC Glucose (mg/dL) 143 H 115 H 175 H (75-99) mg/dL 08/20/16 08/20/16 Range/Units 07:18 07:20 Sodium 134 L (137-145) mmol/L Chloride 96 L (98-107) mmol/L BUN 24 H (9-20) mg/dL Glucose 127 H (74-99) mg/dL POC Glucose (mg/dL) 138 H (75-99) mg/dL Assessment and Plan Plan: Assessment: #1. Hyponatremia secondary to excess water intake in the setting of low solute intake. Also a component of SIADH from underlying malignancy. Sodium level 134 this morning. #2. Squamous cell cancer of tongue with metastasis to the liver. #3. Altered mental status related to hyponatremia. Resolved. #4. Anemia. Iron deficiency present. s/p IV iron. #5. Nonoliguric acute kidney injury mostly prerenal. Resolved. GFR at baseline. Baseline in the range of 1.1-1.2. Plan: Maintain 1 L fluid restriction. Maintain ensure with meals. Avoid nephrotoxic agents and hypotensive episodes. Hold BRTITANY inhibitor for now as patient not hypertensive. Stable for discharge from nephrology standpoint - f/u within 2 weeks as outpatient.
[2016-08-20 09:27] VITALS: BP 160/69; RESP 16; TEMP 97.1
[2016-08-20] MEDS: ALBUTEROL NEBULIZED 2.5 MG/3 ML INHALATION SCH ×2 (09:27→12:31)
--- NOTE | 2016-08-20 09:52 | PN ---
DATE OF SERVICE: 08/19/2016 This 76-year-old gentleman who was admitted with change in mental status, acute metabolic encephalopathy, also had hyponatremia. No chest pain, no palpitations. Patient is complaining of generalized weakness and tiredness. On exam, alert and oriented x3. Pulse 76, blood pressure 130/87, respirations 16, temperature 97 degrees, pulse ox 99% on room air. HEENT: Conjunctivae normal. NECK: No jugular venous distention. CARDIOVASCULAR: S1 and S2, muffled. RESPIRATORY: Breath sounds diminished at the bases. A few scattered rhonchi, no crackles. ABDOMEN: Soft, nontender. LEGS: No edema, no swelling. NERVOUS SYSTEM: No focal deficits. LABS: Sodium 133, WBC 3.2, hemoglobin is 9.5. ASSESSMENT: 1. Change in mental status toxic metabolic encephalopathy secondary to hyponatremia. 2. Status post 3% saline. 3. Hyperchloremia. 4. Possibly SIADH as well as diminished oral intake. 5. Increased random blood sugar. 6. Increased creatine kinase. 7. Anemia, normocytic, anemia of chronic kidney disease, secondary to malignancy. 8. History of throat cancer with secondary lungs and liver, on chemoradiation. 9. Gait dysfunction. 10. History of recent hyponatremia, possibly secondary to hypovolemia as well as syndrome of inappropriate antidiuretic hormone secretion. 11. History of renal failure. 12. History of orthostatic hypotension. 13. History of influenza. 14. History of diabetes type 2. 15. FULL CODE. RECOMMENDATIONS AND DISCUSSION: I recommend to continue the current medications, continue monitoring and symptomatic treatment. Monitor sodium closely. Increase ambulation. Patient stable ambulatory support. Guarded prognosis because of multiple complex medical issues. Further recommendations to follow. MTDD
[2016-08-20 11:12] LABS: Glucose,Whole Blood 110 mg/dL (75-99)
[2016-08-20 12:33] VITALS: PULSE 76
--- NOTE | 2016-08-21 21:01 | DS ---
DATE OF ADMISSION: 08/14/2016 DATE OF DISCHARGE: 08/20/2016 FINAL DIAGNOSIS(ES): 1. Change in mental status, toxic metabolic encephalopathy secondary to hyponatremia. 2. s/p 3% saline. 3. Hyperchloremia. 4. Possible syndrome of inappropriate antidiuretic hormone, status post diminished oral intake. 5. Increased random blood sugar. 6. Increased creatinine kinase. 7. Anemia, normocytic anemia of chronic disease secondary to malignancy. 8. History of throat cancer with secondary of lungs and liver, on chemoradiation. 9. Gait dysfunction. 10. History of recent hyponatremia, possibly secondary to hypovolemia as well as syndrome of inappropriate antidiuretic hormone. 11. History of renal failure. 12. History of orthostatic hypotension. 13. History of influenza. 14. History of diabetes mellitus type 2. 15. FULL CODE. HISTORY OF PRESENT ILLNESS: This 76-year-old gentleman with a past medical history of multiple medical problems admitted with change in mental status and severe hyponatremia. The patient also had a component of syndrome of inappropriate antidiuretic hormone . The patient was treated with 3% saline. The patient improved significantly. The reduced amount of fluid intake was also with up to 1 liter pleural resuscitation by Dr. Valencia. On exam, vital signs are stable. CARDIOVASCULAR: S1, S2 muffled. ABDOMEN: Soft. Nervous system: No focal deficits. As mentioned earlier sodium has improved to 134. The patient will be discharged with further plans to follow up with primary physician in the outpatient setting and to check electrolytes on a periodic basis. Total time taken 35 minutes. DISCHARGE ADVICE AND MEDICATIONS: 1. Diet is cardiac. 2. Activity limited until follow-up. 3. Follow to follow up with Clarice King in 2 to 3 days with CBC, BMP. 4. Medications are Tylenol 650 q.6 p.r.n. 5. Albuterol 2 puffs q.i.d. and p.r.n. 6. Folic acid 1 mg p.o. daily. 7. Atrovent p.r.n. 8. Prinivil 20 mg p.o. daily. 9. Melatonin 10 mg q.h.s. 10. Multivitamin 1 p.o. daily. 11. Flomax 0.5 at bedtime. 12. Metformin 1000 mg p.o. b.i.d. MTDD
== END 2016-08-20 13:00 | disposition home health service (06) | DRG 643 ==
LOC: EC 17:14 → 6ICU 20:51 → 5ONC 08-18 10:46
PROVIDERS: ADMIT Hospitalist; ATTEND Hospitalist
DX: E22.2 Syndrome of inappropriate secretion of antidiuretic hormone (principal); G92 Toxic encephalopathy; N17.9 Acute kidney failure, unspecified; C78.00 Secondary malignant neoplasm of unspecified lung; C78.7 Secondary malignant neoplasm of liver and intrahepatic bile duct; E11.22 Type 2 diabetes mellitus with diabetic chronic kidney disease; D64.81 Anemia due to antineoplastic chemotherapy; E87.8 Other disorders of electrolyte and fluid balance, not elsewhere classified; E86.0 Dehydration; C01 Malignant neoplasm of base of tongue; C14.0 Malignant neoplasm of pharynx, unspecified; D63.1 Anemia in chronic kidney disease; D63.0 Anemia in neoplastic disease; D50.9 Iron deficiency anemia, unspecified; E11.42 Type 2 diabetes mellitus with diabetic polyneuropathy; E78.5 Hyperlipidemia, unspecified; I12.9 Hypertensive chronic kidney disease with stage 1 through stage 4 chronic kidney disease, or unspecified chronic kidney disease; I44.0 Atrioventricular block, first degree; N18.9 Chronic kidney disease, unspecified; T45.1X5A Adverse effect of antineoplastic and immunosuppressive drugs, initial encounter; Z79.899 Other long term (current) drug therapy; Z80.1 Family history of malignant neoplasm of trachea, bronchus and lung; Z85.46 Personal history of malignant neoplasm of prostate; Z85.828 Personal history of other malignant neoplasm of skin; Z87.891 Personal history of nicotine dependence; Z92.3 Personal history of irradiation; Z79.84 Long term (current) use of oral hypoglycemic drugs
CPT/HCPCS: 36415; 70450; 71010; 80048; 80053; 81003; 82140; 82550; 82553; 82728; 83540; 83550; 83735; 83935; 84100; 84295; 84300; 84484; 85025; 85610; 85730; 86850; 86870; 86880; 86900; 86901; 86920; 87040; 87086; 93005; 94640; 96361; 96372; 96374; 96375; 99291

== ENCOUNTER 2016-08-21 17:05 | Observation (INO) | payer MEDICARE, BC ==
[2016-08-21] MEDS ORDERED: SODIUM CHLORIDE 0.9% 1,000 ML IV STA (18:24)
[2016-08-21 18:43] LABS: Aty Lym Flag Slight; CHCM 34.5; HCT 26.1 % (39.0-53.0); HDW 2.85; MCH 34.2 pg (25.0-35.0); MCHC 34.5 g/dL (31.0-37.0); Macrocytosis Slight; Mean Platelet Volume 6.7; RBC 2.63 m/uL (4.30-5.90); RDW 14.7 % (11.5-15.5); WBC 2.7 k/uL (3.8-10.6); WBC (Perox) 2.95
[2016-08-21 18:48] LABS: ALT 30 U/L (21-72); AST 24 U/L (17-59); Alkaline Phosphatase 63 U/L (38-126); Anion Gap 12 mmol/L; Blood Urea Nitrogen 35 mg/dL (9-20); Calcium 9.7 mg/dL (8.4-10.2); Carbon Dioxide 25 mmol/L (22-30); Chloride 98 mmol/L (98-107); Glucose 107 mg/dL (74-99); Magnesium 1.5 mg/dL (1.6-2.3); Non-African American GFR(MDRD) 52 (>60 ml/min/1.73 sqM); Phosphorous 3.4 mg/dL (2.5-4.5); Sodium 135 mmol/L (137-145); Total Bilirubin 0.5 mg/dL (0.2-1.3); Total Protein 6.7 g/dL (6.3-8.2)
[2016-08-21 18:50] LABS: INR 0.9 (<1.1); Prothrombin Time 9.7 sec (9.0-12.0)
[2016-08-21 19:01] LABS: Add Differential Manual Differential
[2016-08-21 19:04] LABS: Nucleated Red Blood Cells 0 /100 WBC (0-0); Polychromasia Present; Total Cells Counted 100
[2016-08-21 19:05] LABS: Creatine Kinase 47 U/L (55-170)
[2016-08-21 19:18] LABS: Troponin I <0.012 ng/mL (0.000-0.034)
[2016-08-21 19:52] LABS: Appearance,Urine Clear (Clear); Bilirubin,Urine Negative (Negative); Glucose,Urine (UA) Negative (Negative); Ketones,Urine Negative (Negative); Leukocyte Esterase,Urine Negative (Negative); Nitrite,Urine Negative (Negative); PH, Urine 6.5 (5.0-8.0); Protein,Urine Trace (Negative); Specific Gravity,Urine 1.011 (1.001-1.035); UA Billing (MACRO vs. MICRO) CHEM; Urobilinogen,Urine <2.0 mg/dL (<2.0)
--- NOTE | 2016-08-21 19:53 | XR ---
EXAMINATION TYPE: XR chest 2V DATE OF EXAM: 08/21/2016 7:41 PM COMPARISON: 08/14/2016 HISTORY: Short of breath TECHNIQUE: Frontal and lateral views of the chest are obtained. FINDINGS: Heart and mediastinum are normal. Lungs are clear. Diaphragm is normal. There is right justine tral venous catheter with tip in the superior vena cava. There is no pleural effusion. There are ches t leads. Bony thorax is intact. IMPRESSION: Normal chest. No change.
[2016-08-21] MEDS ORDERED: risperiDONE 0.25 MG TAB PO STA (20:42)
[2016-08-21] MEDS: MAGNESIUM SULFATE-D5W PMX 1 GM in DEXTROSE/WATER 1 100ML.BAG IVPB SCH (20:58)
--- NOTE | 2016-08-21 21:39 | ED ---
General Adult HPI - General Chief complaint: Psychiatric Symptoms Stated complaint: altered mental status Time Seen by Provider: 08/21/16 18:05 Source: patient, EMS Mode of arrival: EMS - History of Present Illness Initial comments: This 76-year-old white male presents with a complaint of some hallucinations. He apparently is seeing his doctor he ago and the sheryl and yelling at him. He is had some mental status changes per family. He was just released from the hospital yesterday after being admitted for 6 days. He apparently had hyponatremia and hyperkalemia at that time. The family relates that his previous mental status changes were thought to be related to the electrolyte imbalances. His symptoms apparently improved with reversal of the electrolyte abnormalities. He has not slept this past evening. He also is on a fluid restriction of 1000 mL per 24 hours and they've been fairly strict with this. He apparently presents hypertensive and missed his blood pressure medication this morning. He is being treated for lung and liver cancer which is apparently metastatic from previous throat cancer. He just had a second round of chemotherapy. No other complaints or modifying factors. - Related Data Home Medications Medication Instructions Recorded Confirmed Tamsulosin [Flomax] 0.4 mg PO HS 12/01/13 08/21/16 Albuterol Inhaler [Ventolin Hfa 2 puff INHALATION RT-QID PRN 08/14/16 08/21/16 Inhaler] Lisinopril [Prinivil] 20 mg PO DAILY 08/14/16 08/21/16 Previous Rx's Medication Instructions Recorded metFORMIN HCL 1,000 mg PO BID #1 tab 07/19/16 Allergies Allergy/AdvReac Type Severity Reaction Status Date / Time No Known Allergies Allergy Verified 08/21/16 18:13 Review of Systems ROS Statement: Those systems with pertinent positive or pertinent negative responses have been documented in the HPI. ROS Other: All systems not noted in ROS Statement are negative. Past Medical History Past Medical History: Cancer, Diabetes Mellitus, Hypertension Additional Past Medical History / Comment(s): Squamous cell carcinoma of the base of the tongue, initially diagnosed in 2013 and she with chemoradiation therapy and subsequently the patient was found to have metastatic disease in his liver and currently on further treatment with chemotherapy and he has received first cycle on 04/11/2017, prostate cancer treated with radiation therapy in 2006, skin cancer, resected, peripheral neuropathy, diabetes mellitus , hypertension, recent hospitalization for syncope, recent hospitalization for influenza A, chronic anemia along with a component of leukopenia probably related to previous chemotherapy intake. History of Any Multi-Drug Resistant Organisms: None Reported Past Surgical History: Orthopedic Surgery Additional Past Surgical History / Comment(s): 06/21/16 power port placed, LEFT ROTATOR CUFF, skin cancer removal from L forearm, colonoscopy. Past Anesthesia/Blood Transfusion Reactions: No Reported Reaction Past Psychological History: Anxiety, Depression, PTSD Additional Psychological History / Comment(s): Pt resides alone. He is a . He uses no assistive device. He drives. Smoking Status: Former smoker Past Alcohol Use History: Daily Additional Past Alcohol Use History / Comment(s): QUIT SMOKING IN , FOR 60 YRS, 1-2PPD. Pt states he was drinking on a daily basis but has not had any alcohol to drink since 06/22/16. Past Drug Use History: None Reported - Past Family History Father Family Medical History: Cancer Additional Family Medical History / Comment(s): Father had lung cancer. Mother Family Medical History: Cancer Additional Family Medical History / Comment(s): Mother had lung cancer. General Exam - General Exam Comments Initial Comments: GENERAL: The patient is well nourished and well hydrated. VITAL SIGNS: Heart rate, blood pressure, respiratory rate reviewed as recorded in nurse's notes. EYES: Pupils are round and reactive. Extraocular movements are intact. No conjunctival / lid redness or swelling. ENT: No external evidence of injury, swelling, or ecchymosis. Airway is patent. Throat is clear. NECK: Nontender. No swelling or evidence of injury. No subcutaneous emphysema. Trachea is midline. No thyroid mass. HEART: Regular rate and rhythm. Good peripheral pulses. LUNGS/CHEST: Breath sounds clear and equal bilaterally. No rales, rhonchi, or wheezes. No ecchymosis, subcutaneous emphysema, or tenderness. ABDOMEN: Abdomen soft without tenderness. No palpable masses or organomegaly. No peritoneal signs. No abdominal wall swelling or ecchymosis. EXTREMITIES: No extremity tenderness. Normal muscle tone and function. No thoracolumbar tenderness. NEUROLOGIC: Sensation is grossly intact. Cranial nerve exam reveals face is symmetrical, tongue is midline, speech is clear. SKIN: No abrasions or ecchymosis is noted. No induration or masses noted. PSYCHIATRIC: Alert but confused. Course Vital Signs 08/21/16 08/21/16 08/21/16 17:08 19:27 21:01 Temperature 97.3 F L Pulse Rate 86 81 97 Respiratory 18 16 16 Rate Blood Pressure 199/84 138/62 154/76 O2 Sat by Pulse 99 96 96 Oximetry Medical Decision Making - Medical Decision Making The patient was seen and examined. All diagnostics were reviewed. An EKG was done and shows a normal sinus rhythm at a rate of 77. No acute ST-T wave changes were identified. The FL interval is 200, QRS duration is 1:30, and QTc interval is 432. He had a laboratory analysis which did show a slight elevation in the creatinine, a decreased magnesium, a sodium of 135, hemoglobin of 9.0, and a white blood cell count low at 2.7. The exact cause of his mental status changes and hallucinations/delirium is not definitively determined. This apparently has been somewhat recurrent. Case is discussed with Dr. Du who is quite familiar with them. He would like patient admitted to the hospital and may need further rehabilitation treatment. He would like to utilize some Risperdal and place him as an observation. - Lab Data Result diagrams: 08/21/16 17:22 08/21/16 17:22 Lab Results 08/21/16 08/21/16 08/21/16 Range/Units 17:22 17:22 17:22 WBC 2.7 L (3.8-10.6) k/uL RBC 2.63 L (4.30-5.90) m/uL Hgb 9.0 L (13.0-17.5) gm/dL Hct 26.1 L (39.0-53.0) % MCV 99.0 (80.0-100.0) fL MCH 34.2 (25.0-35.0) pg MCHC 34.5 (31.0-37.0) g/dL RDW 14.7 (11.5-15.5) % Plt Count 217 (150-450) k/uL Neutrophils % (Manual) 81.0 % Lymphocytes % (Manual) 14.0 % Monocytes % (Manual) 3.0 % Eosinophils % (Manual) 1.0 % Basophils % (Manual) 1.0 % Neutrophils # (Manual) 2.2 (1.3-7.7) k/uL Lymphocytes # (Manual) 0.4 L (1.0-4.8) k/uL Monocytes # (Manual) 0.1 (0-1.0) k/uL Eosinophils # (Manual) 0.0 (0-0.7) k/uL Basophils # (Manual) 0.0 (0-0.2) k/uL Nucleated RBCs 0 (0-0) /100 WBC Polychromasia Present Macrocytosis Slight PT (9.0-12.0) sec INR (<1.1) APTT (22.0-30.0) sec Sodium 135 L (137-145) mmol/L Potassium 5.0 (3.5-5.1) mmol/L Chloride 98 (98-107) mmol/L Carbon Dioxide 25 (22-30) mmol/L Anion Gap 12 mmol/L BUN 35 H (9-20) mg/dL Creatinine 1.35 H (0.66-1.25) mg/dL Est GFR (MDRD) Af Amer >60 (>60 ml/min/1.73 sqM) Est GFR (MDRD) Non-Af 52 (>60 ml/min/1.73 sqM) Glucose 107 H (74-99) mg/dL Calcium 9.7 (8.4-10.2) mg/dL Phosphorus 3.4 (2.5-4.5) mg/dL Magnesium 1.5 L (1.6-2.3) mg/dL Total Bilirubin 0.5 (0.2-1.3) mg/dL AST 24 (17-59) U/L ALT 30 (21-72) U/L Alkaline Phosphatase 63 (38-126) U/L Total Creatine Kinase 47 L (55-170) U/L CK-MB (CK-2) 1.0 (0.0-2.4) ng/mL CK-MB (CK-2) Rel Index 2.1 Troponin I <0.012 (0.000-0.034) ng/mL Total Protein 6.7 (6.3-8.2) g/dL Albumin 4.1 (3.5-5.0) g/dL Urine Color Urine Appearance (Clear) Urine pH (5.0-8.0) Ur Specific Glidden (1.001-1.035) Urine Protein (Negative) Urine Glucose (UA) (Negative) Urine Ketones (Negative) Urine Blood (Negative) Urine Nitrite (Negative) Urine Bilirubin (Negative) Urine Urobilinogen (<2.0) mg/dL Ur Leukocyte Esterase (Negative) 08/21/16 08/21/16 Range/Units 17:22 19:24 WBC (3.8-10.6) k/uL RBC (4.30-5.90) m/uL Hgb (13.0-17.5) gm/dL Hct (39.0-53.0) % MCV (80.0-100.0) fL MCH (25.0-35.0) pg MCHC (31.0-37.0) g/dL RDW (11.5-15.5) % Plt Count (150-450) k/uL Neutrophils % (Manual) % Lymphocytes % (Manual) % Monocytes % (Manual) % Eosinophils % (Manual) % Basophils % (Manual) % Neutrophils # (Manual) (1.3-7.7) k/uL Lymphocytes # (Manual) (1.0-4.8) k/uL Monocytes # (Manual) (0-1.0) k/uL Eosinophils # (Manual) (0-0.7) k/uL Basophils # (Manual) (0-0.2) k/uL Nucleated RBCs (0-0) /100 WBC Polychromasia Macrocytosis PT 9.7 (9.0-12.0) sec INR 0.9 (<1.1) APTT 22.0 (22.0-30.0) sec Sodium (137-145) mmol/L Potassium (3.5-5.1) mmol/L Chloride (98-107) mmol/L Carbon Dioxide (22-30) mmol/L Anion Gap mmol/L BUN (9-20) mg/dL Creatinine (0.66-1.25) mg/dL Est GFR (MDRD) Af Amer (>60 ml/min/1.73 sqM) Est GFR (MDRD) Non-Af (>60 ml/min/1.73 sqM) Glucose (74-99) mg/dL Calcium (8.4-10.2) mg/dL Phosphorus (2.5-4.5) mg/dL Magnesium (1.6-2.3) mg/dL Total Bilirubin (0.2-1.3) mg/dL AST (17-59) U/L ALT (21-72) U/L Alkaline Phosphatase (38-126) U/L Total Creatine Kinase (55-170) U/L CK-MB (CK-2) (0.0-2.4) ng/mL CK-MB (CK-2) Rel Index Troponin I (0.000-0.034) ng/mL Total Protein (6.3-8.2) g/dL Albumin (3.5-5.0) g/dL Urine Color Light Yellow Urine Appearance Clear (Clear) Urine pH 6.5 (5.0-8.0) Ur Specific Glidden 1.011 (1.001-1.035) Urine Protein Trace H (Negative) Urine Glucose (UA) Negative (Negative) Urine Ketones Negative (Negative) Urine Blood Negative (Negative) Urine Nitrite Negative (Negative) Urine Bilirubin Negative (Negative) Urine Urobilinogen <2.0 (<2.0) mg/dL Ur Leukocyte Esterase Negative (Negative) Disposition Clinical Impression: Delirium, Renal insufficiency, Hypomagnesemia, Hallucination, Delusion, Hypomagnesemia, Hypertension, Anemia, Leukopenia Disposition: ADMITTED IP TO THIS [facility] Condition: Fair Time of Disposition: 21:39 Decision Date: 08/21/16 Decision Time: 21:39
[2016-08-21] MEDS ORDERED: ACETAMINOPHEN TAB 325 MG TAB PO PRN (21:40)
[2016-08-21] MEDS ORDERED: TEMAZEPAM 15 MG CAP PO PRN (21:40)
[2016-08-21] MEDS ORDERED: NALOXONE 0.4 MG/ML 1 ML VIAL IV PRN (21:40)
[2016-08-21] MEDS ORDERED: 0.9% NACL WITH KCL 20 MEQ/L 1,000 ML IV SCH (22:15)
[2016-08-22 03:26] VITALS: BMI 26.6
[2016-08-22] MEDS: MAGNESIUM SULFATE-D5W PMX 1 GM in DEXTROSE/WATER 1 100ML.BAG IVPB SCH (04:16)
[2016-08-22 06:16] LABS: Aty Lym Flag Moderate; CHCM 34.8; HCT 26.7 % (39.0-53.0); HDW 2.93; HGB 9.1 gm/dL (13.0-17.5); MCH 33.4 pg (25.0-35.0); MCV 98.1 fL (80.0-100.0); Mean Platelet Volume 8.4; RBC 2.72 m/uL (4.30-5.90); RDW 14.5 % (11.5-15.5); WBC 2.2 k/uL (3.8-10.6); WBC (Perox) 2.13
[2016-08-22 06:33] LABS: Anion Gap 11 mmol/L; Blood Urea Nitrogen 24 mg/dL (9-20); Calcium 9.6 mg/dL (8.4-10.2); Carbon Dioxide 25 mmol/L (22-30); Chloride 98 mmol/L (98-107); Glucose 123 mg/dL (74-99); Non-African American GFR(MDRD) >60 (>60 ml/min/1.73 sqM); Potassium 4.5 mmol/L (3.5-5.1); Sodium 134 mmol/L (137-145)
[2016-08-22 06:56] LABS: Add Differential Manual Differential
[2016-08-22] MEDS: metFORMIN 500 MG TAB PO SCH ×2 (06:56→18:20)
[2016-08-22 06:59] LABS: Manual Review Performed; Nucleated Red Blood Cells 0 /100 WBC (0-0); Total Cells Counted 100
[2016-08-22] MEDS: ENOXAPARIN 40 MG/0.4 ML SYRINGE SQ SCH (08:25)
[2016-08-22] MEDS: LISINOPRIL 20 MG TAB PO SCH (08:25)
[2016-08-22] MEDS: ALBUTEROL NEBULIZED 2.5 MG/3 ML INHALATION PRN ×2 (08:26→16:55)
[2016-08-22] MEDS ORDERED: PANTOPRAZOLE 40 MG/10 ML VIAL IV SCH (09:00)
[2016-08-22] MEDS: SODIUM CHLORIDE 0.9% 1,000 ML IV SCH (12:35)
[2016-08-22] MEDS: FOLIC ACID 1 MG TAB PO SCH (14:44)
[2016-08-22] MEDS: THIAMINE 100 MG TAB PO SCH (14:44)
[2016-08-22] MEDS ORDERED: risperiDONE 0.25 MG TAB PO SCH ×2 (21:00)
[2016-08-22] MEDS ORDERED: TAMSULOSIN 0.4 MG CAP.ER.24H PO SCH (21:00)
[2016-08-22 22:22] LABS: Glucose,Whole Blood 108 mg/dL (75-99)
--- NOTE | 2016-08-22 22:37 | HP ---
DATE OF ADMISSION: 08/21/2016 CHIEF COMPLAINT: Change in mental status. HISTORY OF PRESENT ILLNESS: This 76-year-old gentleman who has a past medical history of multiple medical problems, was admitted with change in mental status and toxic metabolic encephalopathy secondary to hyponatremia, thought to be a combination of several factors including . The patient has an extensive history of malignancy and chemoradiation also. The patient improved significantly. Sodium improved significantly. Patient went home with the family and apparently at home the patient had a recurrence of symptoms and the patient had some change in mental status. Patient is confused. The patient also complained of insomnia. The patient came to [facility] and was admitted for further evaluation and treatment. There is no history of fevers or rigors. No history of headache, loss of consciousness or seizures. PAST MEDICAL HISTORY: History of diabetes, hypertension, squamous cell carcinoma of the base of the tongue and chemoradiation treatment and ascites in the liver and chemotherapy, history of anxiety, depression, PTSD, history of nicotine dependence. Medications prior to admission include: 1. Albuterol 2 puffs q.i.d. p.r.n. 2. Metformin 1000 mg daily. 3. Flomax 0.4 at bedtime. ALLERGIES: None. FAMILY HISTORY: History of lung cancer in the family. SOCIAL HISTORY: Previous history of smoking. Occasional alcohol intake. REVIEW OF SYSTEMS: ENT: Dementia. CARDIOVASCULAR SYSTEM: No angina. S1, S2 muffled. GI: No nausea. : No dysuria. NERVOUS SYSTEM: As mentioned. ALLERGY/IMMUNOLOGY: No asthma or hayfever. MUSCULOSKELETAL: Dementia. ENDOCRINE: No history of diabetes or hypertension. PSYCHIATRY: As mentioned earlier. PHYSICAL EXAMINATION: Patient is alert and oriented x2. Slightly confused. Otherwise, pulse is 78, blood pressure 130/70, respirations 18, temperature 97.5, pulse ox 97% on room air. HEENT: Conjunctivae normal. NECK: No JVD. CARDIOVASCULAR: S1 and S2 muffled. LUNGS: Breath sounds diminished at the bases. Scattered rhonchi and crackles. ABDOMEN: Soft, nontender. NERVOUS SYSTEM: Higher functions as mentioned. Moves all limbs equally. LYMPHATICS: NO masses palpable in the neck, groin or axillae. LABS: WBC 2.5, hemoglobin is 9.1, sodium is 134, glucose 130. ASSESSMENT: 1. Change in mental status and possible acute delirium. 2. Recent acute toxic metabolic encephalopathy secondary to hyponatremia, status post . 3. Possible SIADH and diminished p.o. intake previously. 4. Anemia, normocytic anemia of chronic disease, secondary to malignancy. 5. History of squamous cell carcinoma of the base of the tongue with metastases to the liver, on chemoradiation. 6. Gait dysfunction. 7. History of recent hyponatremia, possibly secondary to hypovolemia. 8. History of renal failure. 9. History of orthostatic hypotension 10. History of influenza. 11. History of diabetes mellitus type 2. 12. Anxiety, depression, posttraumatic stress disorder. 13. History of degenerative joint disease. 14. Diabetes mellitus type 2. 15. Peripheral neuropathy. 16. Hypertension. 17. 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 18. FULL CODE. RECOMMENDATIONS AND DISCUSSION: In this 76-year-old gentleman who presented with multiple complex medical issues, we will monitor the patient closely. Continue current medications and symptomatic treatment. Otherwise at this time I would recommend PT, OT evaluation and possible rehab. Guarded prognosis because of multiple complex medical issues. Discussed with the patient who understands. Further recommendations to follow. MTDD
[2016-08-23 06:24] LABS: Glucose,Whole Blood 117 mg/dL (75-99)
[2016-08-23] MEDS: metFORMIN 500 MG TAB PO SCH (06:41)
[2016-08-23] MEDS: SODIUM CHLORIDE 0.9% 1,000 ML IV SCH (06:41)
[2016-08-23] MEDS ORDERED: PANTOPRAZOLE 40 MG TABLET PO SCH (07:30)
[2016-08-23 07:34] VITALS: RESP 20
[2016-08-23] MEDS: LISINOPRIL 20 MG TAB PO SCH (08:11)
[2016-08-23] MEDS: ENOXAPARIN 40 MG/0.4 ML SYRINGE SQ SCH (08:11)
[2016-08-23 11:15] LABS: Blood Urea Nitrogen 22 mg/dL (9-20); Calcium 9.3 mg/dL (8.4-10.2); Chloride 100 mmol/L (98-107); Glucose 144 mg/dL (74-99); Non-African American GFR(MDRD) 55 (>60 ml/min/1.73 sqM); Potassium 5.8 mmol/L (3.5-5.1); Sodium 135 mmol/L (137-145)
[2016-08-23 11:16] LABS: Anion Gap 9 mmol/L; Carbon Dioxide 26 mmol/L (22-30)
[2016-08-23 11:31] LABS: Glucose,Whole Blood 147 mg/dL (75-99)
--- NOTE | 2016-08-23 11:41 | DS ---
DATE OF ADMISSION: 08/21/2016 DATE OF DISCHARGE: DATE OF SERVICE: 08/23/2016 FINAL DIAGNOSES: 1. Change in mental status, possible acute delirium. 2. Recent acute toxic metabolic encephalopathy secondary to hyponatremia, status post 3% saline. 3. Possible SIADH and diminished oral intake previously. 4. Anemia, normocytic, anemia of chronic disease secondary to malignancy. 5. History of squamous cell carcinoma of the base of the tongue with metastasis to liver, status post chemoradiation. 6. Gait dysfunction. 7. History of recent hyponatremia, possibly secondary to hypovolemia. 8. History of renal failure. 9. History orthostatic hypotension. 10. History of influenza. 11. History of diabetes mellitus type 2. 12. History of anxiety, depression, posttraumatic stress disorder. 13. History of degenerative joint disease. 14. Diabetes mellitus type 2. 15. Peripheral neuropathy. 16. Hypertension. 17. Chronic anemia and leukopenia secondary to chemotherapy. 18. FULL CODE. DISCHARGE DISPOSITION: The patient will be transferred to [facility]. Total time taken 35 minutes. HISTORY OF PRESENT ILLNESS: This 76-year-old gentleman with a past medical history of multiple medical problems was admitted with change in mental and acute delirium. Patient was treated symptomatically. Patient improved significantly. Sodium was monitored. Currently it is 135. On exam, vitals are stable. CARDIOVASCULAR: S1 and S2 muffled. ABDOMEN: Soft. NERVOUS SYSTEM: No focal deficits. DISCHARGE ADVICE: 1. Diet is cardiac. 2. Activity limited until followup. 3. Fluid restriction 1500 mL per 24 hours. 4. Follow up with Dr. Roverto Kimble in one week. 5. Follow up with Dr. Gregory in the ECF. 6. CBC, BMP in 2 to 3 days and continue to followup. Medications are: 1. Tylenol 650 q.6 p.r.n. 2. Albuterol q.i.d. and p.r.n. 3. Folic acid 1 mg daily. 4. Prinivil 20 mg daily. 5. Multivitamin 1 p.o. daily. 6. Protonix 40 mg daily. 7. Flomax 0.4 q.h.s. 8. Multivitamin which is Thiamine 100 mg daily. 9. Risperdal 0.125 mg q.h.s. 10. Metformin 1000 mg p.o. b.i.d. 11. Accu-Cheks a.c. and at bedtime. NovoLog scale, 150 to 200, two units; 201 to 250, four units; 251 to 300, six units; 301 to 350, eight units, 351 to 400, ten units and more than 400 to call. Once again, the patient will be discharged in stable condition with guarded prognosis.
[2016-08-23 11:48] LABS: Aty Lym Flag Slight; CHCM 34.2; HCT 26.2 % (39.0-53.0); HGB 8.6 gm/dL (13.0-17.5); MCH 32.9 pg (25.0-35.0); MCV 99.9 fL (80.0-100.0); Macrocytosis Slight; Mean Platelet Volume 7.3; RBC 2.62 m/uL (4.30-5.90); RDW 14.8 % (11.5-15.5); WBC 2.6 k/uL (3.8-10.6); WBC (Perox) 2.76
[2016-08-23] MEDS ORDERED: MULTIVITAMINS, THERA 1 EACH TAB PO SCH (12:00)
[2016-08-23 12:14] VITALS: BP 110/57; TEMP 97.8
[2016-08-23] MEDS: THIAMINE 100 MG TAB PO SCH (12:49)
[2016-08-23] MEDS: FOLIC ACID 1 MG TAB PO SCH (12:50)
[2016-08-23 13:16] LABS: Add Differential Manual Differential
[2016-08-23 13:19] LABS: Manual Review Performed; Nucleated Red Blood Cells 0 /100 WBC (0-0); Total Cells Counted 100
[2016-08-23 14:13] VITALS: PULSE 86
== END 2016-08-23 15:08 ==
LOC: EC 17:05 → 6SEL 21:39
PROVIDERS: ADMIT Hospitalist; ATTEND Hospitalist
DX: R41.82 Altered mental status, unspecified (principal); G92 Toxic encephalopathy; E87.1 Hypo-osmolality and hyponatremia; D64.9 Anemia, unspecified; C01 Malignant neoplasm of base of tongue; C78.7 Secondary malignant neoplasm of liver and intrahepatic bile duct; C78.00 Secondary malignant neoplasm of unspecified lung; D63.8 Anemia in other chronic diseases classified elsewhere; Z92.3 Personal history of irradiation; R26.9 Unspecified abnormalities of gait and mobility; N19 Unspecified kidney failure; I95.1 Orthostatic hypotension; E11.42 Type 2 diabetes mellitus with diabetic polyneuropathy; I10 Essential (primary) hypertension; F32.9 Major depressive disorder, single episode, unspecified; F43.10 Post-traumatic stress disorder, unspecified; M19.90 Unspecified osteoarthritis, unspecified site; D70.1 Agranulocytosis secondary to cancer chemotherapy; T45.1X5A Adverse effect of antineoplastic and immunosuppressive drugs, initial encounter; D63.0 Anemia in neoplastic disease; Z92.21 Personal history of antineoplastic chemotherapy; Z79.899 Other long term (current) drug therapy; Z85.828 Personal history of other malignant neoplasm of skin; Z85.46 Personal history of malignant neoplasm of prostate; Z87.891 Personal history of nicotine dependence; Z80.1 Family history of malignant neoplasm of trachea, bronchus and lung; Z79.84 Long term (current) use of oral hypoglycemic drugs; G47.00 Insomnia, unspecified; E83.42 Hypomagnesemia; F22 Delusional disorders
CPT/HCPCS: 36415; 94640 ×2; 93005; 97161; 97165; 80053; 80048 ×2; 82550; 82553; 83735 ×2; 84100; 84484; 85025 ×3; 85610; 85730; 81003; 71020; 96365; 96366 ×2; 96361 ×2; 99285; G0378 ×3; J1650 ×2; J3475 ×2; C9113; 96372; 96375

== ENCOUNTER 2017-06-18 10:34 | Emergency (ER) | payer BC, MEDICARE ==
[2017-06-18 10:47] VITALS: RESP 18
[2017-06-18] MEDS ORDERED: IPRATROPIUM-ALBUTEROL 3 ML NEB INHALATION STA (11:47)
--- NOTE | 2017-06-18 11:50 | ED ---
General Adult HPI - General Chief complaint: Arrhythmia/Palpitations Stated complaint: ABNORMAL EKG Time Seen by Provider: 06/18/17 11:00 Source: patient, RN notes reviewed Mode of arrival: wheelchair - History of Present Illness Initial comments: This is a 77-year-old male who presents emergency department stating that he went to see his oncologist they did an EKG on her and didn't like with EKG shows a they sent him to the emergency department. Patient has no complaints. Patient states he has liver cancer and this is why he is seeing an oncologist. Patient denies any chest pain patient denies palpitations patient denies difficulty breathing or shortness of breath. Patient denies any recent fever chills or cough. Patient denies abdominal pain patient denies nausea vomiting or diarrhea. Patient denies being lightheaded or dizzy. Patient denies any headache patient denies numbness weakness. Patient denies any history of recent injury or trauma. - Related Data Home Medications Medication Instructions Recorded Confirmed Tamsulosin [Flomax] 0.4 mg PO HS 12/01/13 06/18/17 Lisinopril [Prinivil] 20 mg PO DAILY 08/14/16 06/18/17 Acetaminophen/Diphenhydramine 2 tab PO HS 06/18/17 06/18/17 [Tylenol PM 500-25mg] Folic Acid 1 mg PO DAILY 06/18/17 06/18/17 Melatonin 5 mg PO HS 06/18/17 06/18/17 Omeprazole [PriLOSEC] 20 mg PO DAILY 06/18/17 06/18/17 Sennosides [Senna] 8.6 mg PO HS 06/18/17 06/18/17 risperiDONE [RisperDAL] 1 mg PO HS 06/18/17 06/18/17 Previous Rx's Medication Instructions Recorded metFORMIN HCL 1,000 mg PO BID #1 tab 07/19/16 Allergies Allergy/AdvReac Type Severity Reaction Status Date / Time No Known Allergies Allergy Verified 06/18/17 11:15 Review of Systems ROS Statement: Those systems with pertinent positive or pertinent negative responses have been documented in the HPI. ROS Other: All systems not noted in ROS Statement are negative. Past Medical History Past Medical History: Cancer, Diabetes Mellitus, Hypertension Additional Past Medical History / Comment(s): Squamous cell carcinoma of the base of the tongue, initially diagnosed in 2014 and she with chemoradiation therapy and subsequently the patient was found to have metastatic disease in his liver and currently on further treatment with chemotherapy and he has received first cycle on 04/11/2017, prostate cancer treated with radiation therapy in 2006, skin cancer, resected, peripheral neuropathy, diabetes mellitus , hypertension, recent hospitalization for syncope, recent hospitalization for influenza A, chronic anemia along with a component of leukopenia probably related to previous chemotherapy intake. History of Any Multi-Drug Resistant Organisms: None Reported Past Surgical History: Orthopedic Surgery Additional Past Surgical History / Comment(s): 06/21/16 power port placed, LEFT ROTATOR CUFF, skin cancer removal from L forearm, colonoscopy. Past Anesthesia/Blood Transfusion Reactions: No Reported Reaction Past Psychological History: Anxiety, Depression, PTSD Smoking Status: Former smoker Past Alcohol Use History: None Reported, Daily Past Drug Use History: None Reported - Past Family History Father Family Medical History: Cancer Additional Family Medical History / Comment(s): Father had lung cancer. Mother Family Medical History: Cancer Additional Family Medical History / Comment(s): Mother had lung cancer. General Exam - General Exam Comments Initial Comments: GENERAL: Patient is well-developed and well-nourished. Patient is nontoxic and well- hydrated and is in no acute distress. ENT: Neck is soft and supple. No significant lymphadenopathy is noted. Oropharynx is clear. Moist mucous membranes. Neck has full range of motion without eliciting any pain. EYES: The sclera were anicteric and conjunctiva were pink and moist. Extraocular movements were intact and pupils were equal round and reactive to light. Eyelids were unremarkable. PULMONARY: Unlabored respirations. Good breath sounds bilaterally. No audible rales rhonchi or wheezing was noted. CARDIOVASCULAR: There is a regular rate and rhythm without any murmurs gallops or rubs. ABDOMEN: Soft and nontender with normal bowel sounds. No palpable organomegaly was noted. There is no palpable pulsatile mass. SKIN: Skin is clear with no lesions or rashes and otherwise unremarkable. NEUROLOGIC: Patient is alert and oriented x3. Cranial nerves II through XII are grossly intact. Motor and sensory are also intact. Normal speech, volume and content. Symmetrical smile. MUSCULOSKELETAL: Normal extremities with adequate strength and full range of motion. No lower extremity swelling or edema. No calf tenderness. LYMPHATICS: No significant lymphadenopathy is noted PSYCHIATRIC: Normal psychiatric evaluation. Normal interpersonal interactions appears functionally intact in deals appropriately with others. No signs of depression. No signs of anxiety. Course Vital Signs 06/18/17 06/18/17 06/18/17 10:44 12:00 12:06 Temperature 98.0 F Pulse Rate 104 H 78 82 Respiratory 18 Rate Blood Pressure 121/65 O2 Sat by Pulse 95 Oximetry 06/18/17 06/18/17 12:15 13:27 Temperature 97.1 F L Pulse Rate 68 73 Respiratory 18 18 Rate Blood Pressure 135/67 119/55 O2 Sat by Pulse 99 99 Oximetry Medical Decision Making - Medical Decision Making EKG shows normal sinus rhythm at 80 bpm WA interval is 208 QRSs 148 QT interval is 392 QTC is 474 EKG shows a right bundle branch block Chest x-ray shows no acute normalities. Patient is requesting to leave immediately he does not want stay Since he is asymptomatic. - Lab Data Result diagrams: 06/18/17 11:40 06/18/17 11:40 Lab Results 06/18/17 06/18/17 06/18/17 Range/Units 11:40 11:40 11:40 WBC 5.7 (3.8-10.6) k/uL RBC 3.08 L (4.30-5.90) m/uL Hgb 10.2 L (13.0-17.5) gm/dL Hct 30.8 L (39.0-53.0) % MCV 99.9 (80.0-100.0) fL MCH 33.0 (25.0-35.0) pg MCHC 33.0 (31.0-37.0) g/dL RDW 12.4 (11.5-15.5) % Plt Count 204 (150-450) k/uL Neutrophils % 78 % Lymphocytes % 10 % Monocytes % 6 % Eosinophils % 4 % Basophils % 0 % Neutrophils # 4.4 (1.3-7.7) k/uL Lymphocytes # 0.6 L (1.0-4.8) k/uL Monocytes # 0.3 (0-1.0) k/uL Eosinophils # 0.2 (0-0.7) k/uL Basophils # 0.0 (0-0.2) k/uL PT (9.0-12.0) sec INR (<1.2) APTT (22.0-30.0) sec Sodium 142 (137-145) mmol/L Potassium 4.3 (3.5-5.1) mmol/L Chloride 105 (98-107) mmol/L Carbon Dioxide 26 (22-30) mmol/L Anion Gap 11 mmol/L BUN 20 (9-20) mg/dL Creatinine 1.28 H (0.66-1.25) mg/dL Est GFR (MDRD) Af Amer >60 (>60 ml/min/1.73 sqM) Est GFR (MDRD) Non-Af 55 (>60 ml/min/1.73 sqM) Glucose 117 H (74-99) mg/dL Calcium 9.0 (8.4-10.2) mg/dL Magnesium 1.3 L (1.6-2.3) mg/dL Total Bilirubin 0.2 (0.2-1.3) mg/dL AST 26 (17-59) U/L ALT 39 (21-72) U/L Alkaline Phosphatase 60 (38-126) U/L Total Creatine Kinase 25 L (55-170) U/L CK-MB (CK-2) 1.0 (0.0-2.4) ng/mL CK-MB (CK-2) Rel Index 4.0 Troponin I <0.012 (0.000-0.034) ng/mL Total Protein 5.8 L (6.3-8.2) g/dL Albumin 3.6 (3.5-5.0) g/dL 06/18/17 Range/Units 11:40 WBC (3.8-10.6) k/uL RBC (4.30-5.90) m/uL Hgb (13.0-17.5) gm/dL Hct (39.0-53.0) % MCV (80.0-100.0) fL MCH (25.0-35.0) pg MCHC (31.0-37.0) g/dL RDW (11.5-15.5) % Plt Count (150-450) k/uL Neutrophils % % Lymphocytes % % Monocytes % % Eosinophils % % Basophils % % Neutrophils # (1.3-7.7) k/uL Lymphocytes # (1.0-4.8) k/uL Monocytes # (0-1.0) k/uL Eosinophils # (0-0.7) k/uL Basophils # (0-0.2) k/uL PT 10.1 (9.0-12.0) sec INR 1.0 (<1.2) APTT 46.6 H (22.0-30.0) sec Sodium (137-145) mmol/L Potassium (3.5-5.1) mmol/L Chloride (98-107) mmol/L Carbon Dioxide (22-30) mmol/L Anion Gap mmol/L BUN (9-20) mg/dL Creatinine (0.66-1.25) mg/dL Est GFR (MDRD) Af Amer (>60 ml/min/1.73 sqM) Est GFR (MDRD) Non-Af (>60 ml/min/1.73 sqM) Glucose (74-99) mg/dL Calcium (8.4-10.2) mg/dL Magnesium (1.6-2.3) mg/dL Total Bilirubin (0.2-1.3) mg/dL AST (17-59) U/L ALT (21-72) U/L Alkaline Phosphatase (38-126) U/L Total Creatine Kinase (55-170) U/L CK-MB (CK-2) (0.0-2.4) ng/mL CK-MB (CK-2) Rel Index Troponin I (0.000-0.034) ng/mL Total Protein (6.3-8.2) g/dL Albumin (3.5-5.0) g/dL Disposition Clinical Impression: Liver cancer, EKG abnormality Disposition: HOME SELF-CARE Referrals: Roverto Kimble MD [Primary Care Provider] - 1-2 days Time of Disposition: 13:22
[2017-06-18 11:59] LABS: Basophils % (A) 0 %; Eosinophils # (A) 0.2 k/uL (0-0.7); Eosinophils % (A) 4 %; HCT 30.8 % (39.0-53.0); HGB 10.2 gm/dL (13.0-17.5); Lymphocytes # (A) 0.6 k/uL (1.0-4.8); Lymphocytes % (A) 10 %; MCV 99.9 fL (80.0-100.0); Mean Platelet Volume 7.1; Monocytes # (A) 0.3 k/uL (0-1.0); Monocytes % (A) 6 %; Neutrophils # (A) 4.4 k/uL (1.3-7.7); Neutrophils % (A) 78 %; Platelet Count 204 k/uL (150-450); RBC 3.08 m/uL (4.30-5.90); RDW 12.4 % (11.5-15.5); WBC 5.7 k/uL (3.8-10.6)
[2017-06-18 12:17] LABS: Partial Thromboplastin Time 46.6 sec (22.0-30.0); Prothrombin Time 10.1 sec (9.0-12.0)
[2017-06-18 12:21] LABS: Creatine Kinase 25 U/L (55-170)
[2017-06-18 12:34] LABS: Troponin I <0.012 ng/mL (0.000-0.034)
[2017-06-18 12:48] LABS: ALT 39 U/L (21-72); AST 26 U/L (17-59); Albumin 3.6 g/dL (3.5-5.0); Alkaline Phosphatase 60 U/L (38-126); Anion Gap 11 mmol/L; Blood Urea Nitrogen 20 mg/dL (9-20); Carbon Dioxide 26 mmol/L (22-30); Chloride 105 mmol/L (98-107); Glucose 117 mg/dL (74-99); Magnesium 1.3 mg/dL (1.6-2.3); Potassium 4.3 mmol/L (3.5-5.1); Sodium 142 mmol/L (137-145); Total Bilirubin 0.2 mg/dL (0.2-1.3); Total Protein 5.8 g/dL (6.3-8.2)
--- NOTE | 2017-06-18 13:06 | XR ---
EXAMINATION TYPE: XR chest 2V DATE OF EXAM: 06/18/2017 COMPARISON: 08/21/16 HISTORY: Shortness of breath TECHNIQUE: Frontal and lateral views of the chest are obtained. FINDINGS: Scattered senescent parenchymal changes noted. No evidence for infiltrate. No evidence for atelectasis. Heart size is stable. Mediastinal structures are stable and grossly unremarkable. No evidence for hilar prominence. Degenerative changes dorsal spine. IMPRESSION: 1. No evidence for acute pulmonary disease.
[2017-06-18 13:28] VITALS: BP 119/55; PULSE 73; TEMP 97.1
== END 2017-06-18 13:30 | disposition home or self-care (01) ==
LOC: EC 10:34
DX: R93.1 Abnormal findings on diagnostic imaging of heart and coronary circulation (principal); C22.9 Malignant neoplasm of liver, not specified as primary or secondary; E11.9 Type 2 diabetes mellitus without complications; I10 Essential (primary) hypertension; F32.9 Major depressive disorder, single episode, unspecified; F41.9 Anxiety disorder, unspecified; Z85.46 Personal history of malignant neoplasm of prostate; Z85.828 Personal history of other malignant neoplasm of skin; Z85.810 Personal history of malignant neoplasm of tongue; Z87.891 Personal history of nicotine dependence; Z79.899 Other long term (current) drug therapy
CPT/HCPCS: 36415; 71046; 80053; 82550; 82553; 83735; 84484; 85025; 85610; 85730; 93005; 94640; 99285